=== PATIENT | male | born 1955 | race Caucasian/White ===

== ENCOUNTER 2017-04-13 11:14 | Emergency (ER) | payer BC ==
[~2017-04-13] VITALS: Ht 172.7 cm; Wt 84.8 kg
[~2017-04-13 11:14] MED LIST: ASPI81TA28 PO; BTLAI INJ; GLC/500 PO; PANT40TA PO; TOPI100T20 PO
[2017-04-13 11:16] VITALS: TEMP 36.6; Ht 172.7 cm; Wt 84.8 kg
[2017-04-13] MEDS ORDERED: LPT10 PO (11:33)
--- NOTE | 2017-04-13 12:22 | DIAGNOSTIC IMAGING REPORT ---
RIGHT TIBIA AND FIBULA 2 VIEWS CLINICAL HISTORY: Right calf pain. FINDINGS: AP and lateral views of the right tibia and fibula are obtained. No prior studies are available for comparison at the time of dictation. The skeletal structures appear osteopenic. No fracture is seen. The knee and ankle joints are grossly maintained. An os trigonum is incidentally noted. There is a large dorsal calcaneal enthesophyte. Mild soft tissue swelling is present in the dorsal calf. There is atherosclerotic calcification of the regional arteries. IMPRESSION: 1. Mild dorsal soft tissue edema. No fracture is identified. 2. Osteopenia and large dorsal heel spur. Electronically signed by: Tra Tovar M.D. 04/13/2017 12:20 PM Dictated Date/Time: 04/13/2017 12:19 PM
--- NOTE | 2017-04-13 12:24 | DIAGNOSTIC IMAGING REPORT ---
RIGHT FOOT 3 VIEWS CLINICAL HISTORY: Heel pain. FINDINGS: 3 views of the right foot are obtained. No prior studies are available for comparison at the time of dictation. The skeletal structures are osteopenic. No fracture is seen. Arthritic change is noted at the first metatarsophalangeal joint. There are large dorsal and small plantar calcaneal enthesophytes. Degenerative spurring seen along the dorsal aspect of the tarsal bones. An os trigonum is incidentally noted. Kager's fat pad is normal in appearance. Mild soft tissue swelling is suggested in the distal calf. There is atherosclerotic calcification of the regional arteries. IMPRESSION: 1. No acute bony abnormality is seen in the right foot. 2. Osteopenia, arthritic change, and heel spurs as above. Electronically signed by: Tra Tovar M.D. 04/13/2017 12:23 PM Dictated Date/Time: 04/13/2017 12:21 PM
--- NOTE | 2017-04-13 12:37 | DIAGNOSTIC IMAGING REPORT ---
ULTRASOUND RIGHT LOWER EXTREMITY VENOUS CLINICAL HISTORY: Right calf pain. COMPARISON STUDY: Bilateral lower extremity venous ultrasound dated 10/04/2009. TECHNIQUE: Real-time, grayscale, and color Doppler sonography of the deep veins of the right lower extremity was performed from the inguinal crease to the calf. Compression and augmentation were utilized. FINDINGS: There is no sonographic evidence of deep venous thrombosis identified in the right lower extremity. The common femoral, superficial femoral, and popliteal veins are patent and normally compressible. The greater saphenous vein and the profunda femoris vein at the junction with the common femoral vein are clear. The visualized calf veins are patent. IMPRESSION: There is no sonographic evidence of deep venous thrombosis identified in the right lower extremity. Electronically signed by: Tra Tovar M.D. 04/13/2017 12:35 PM Dictated Date/Time: 04/13/2017 12:35 PM
[2017-04-13 12:58] VITALS: BP 135/89; PULSE 82; O2SAT 96
--- NOTE | 2017-04-13 12:59 | EMERGENCY ROOM VISIT NOTE ---
ED Visit Note First contact with patient: 11:33 62-year-old male with left lower leg pain was fully evaluated by Yony Estevez. Please see his note. I also independently evaluated the patient. The patient appears to have an Achilles strain without rupture.
[2017-04-13] MEDS ORDERED: TRAM-10 PO (13:02)
--- NOTE | 2017-04-13 13:03 | EMERGENCY ROOM VISIT NOTE ---
History First contact with patient: 11:33 Chief Complaint: ANKLE PAIN Stated Complaint: ACHILES TENDON History of Present Illness The patient is a 62 year old male who presents to the Emergency Room with complaints of "Achilles tendon".. The patient states that , he was installing spouting, when he was stepping down off of scaffolding, causing marked dorsiflexion, causing pain at the insertion of the Achilles tendon on the calcaneus. Patient points to this region is location of pain which she notes has been increasing since the event and currently rates his pain as an 8/ 10. There is no numbness or tingling in the distal extremity. Review of Systems A complete 6-point Review of Systems was discussed with the patient, with pertinent positives and negatives listed in the History of Present Illness. All remaining Review of Systems questions can be considered negative unless otherwise specified. Past Medical/Surgical History Medical Problems: (1) Abdominal pain (2) Abdominal wall pain in left flank (3) Diabetes (4) Gastro-Esophageal Reflux Disease Without Esophagitis (5) Kidney stones (6) Lumbar back pain (7) Lumbar degenerative disc disease (8) Lumbar radicular pain (9) TBI (traumatic brain injury) Surgical Problems: (1) Hx of appendectomy (2) S/P lumbar fusion Family History Diabetes mellitus Kidney stones Social History Smoking Status: Never Smoker Alcohol Use: none Marital Status: Housing Status: lives with significant other Occupation Status: disabled Current/Historical Medications Scheduled Aspirin (Aspirin Ec), 81 MG PO QAM Atorvastatin (Atorvastatin Calcium), 10 MG PO DAILY Botulinum Toxin Type A (Botox), 1 DOSE INJ DIRECTED Metformin Hcl (Glucophage), 500 MG PO BID Pantoprazole Sodium (Protonix), 40 MG PO QAM Topiramate (Topamax), 200 MG PO HS Scheduled PRN Tramadol (Ultram), 50 MG PO Q6 PRN for Pain Allergies Coded Allergies: Zolpidem (Verified Adverse Reaction, Unknown, hallucinations, 04/13/17) Physical Exam Vital Signs Date Time Temp Pulse Resp B/P Pulse Ox O2 Delivery O2 Flow Rate FiO2 04/13/17 12:58 82 18 135/89 96 Room Air 04/13/17 11:16 36.6 81 18 137/84 99 Room Air Physical Exam VITAL SIGNS - Vital signs and nursing notes were reviewed. Afebrile, blood pressure 1 3784, non-tachycardic and saturating well on room air 99%. GENERAL -62-year-old male appearing his stated age who is in no acute distress. Communicates well with provider and answers questions appropriately. SKIN - Without rashes. Skin overlying the right ankle is unremarkable. HEAD - NC/AT. EXTREMITIES - No clubbing or peripheral cyanosis. No pretibial edema present. Squeezing of the gastroc muscle elicits plantar flexion. No evidence of complete Achilles tendon tear. There is no muscle bulge in the right calf. There is calf tenderness and marked Achilles tenderness. NEUROLOGIC - Cranial nerves II through XII grossly intact. Sensory intact to light touch throughout. He is neurologically intact in the extremity. PSYCH - Pt is very pleasant and interacts well with examiner. Medical Decision & Procedures ER Provider Diagnostic Interpretation: ULTRASOUND RIGHT LOWER EXTREMITY VENOUS CLINICAL HISTORY: Right calf pain. COMPARISON STUDY: Bilateral lower extremity venous ultrasound dated 10/04/2009. TECHNIQUE: Real-time, grayscale, and color Doppler sonography of the deep veins of the right lower extremity was performed from the inguinal crease to the calf. Compression and augmentation were utilized. FINDINGS: There is no sonographic evidence of deep venous thrombosis identified in the right lower extremity. The common femoral, superficial femoral, and popliteal veins are patent and normally compressible. The greater saphenous vein and the profunda femoris vein at the junction with the common femoral vein are clear. The visualized calf veins are patent. IMPRESSION: There is no sonographic evidence of deep venous thrombosis identified in the right lower extremity. Electronically signed by: Tra Tovar M.D. 04/13/2017 12:35 PM Dictated Date/Time: 04/13/2017 12:35 PM Medical Decision Patient was seen and evaluated as above. After obtaining a thorough history and physical examination radiographs and ultrasound was obtained of the affected area. Patient presents to us today with any known injury to the region. He has injured the Achilles tendon the past. He believes it was a strain in the past. Ultrasound an x-ray was negative for acute process. I suspect the patient is likely strained or sprained the Achilles tendon region or surrounding musculature. I do not suspect any complete tear. I do not suspect any infection. Case was discussed with my attending, who also personally evaluated the patient. This time the patient will be placed in a posterior short-leg Ortho-Glass splint and referred to orthopedics. He will be given tramadol for his pain. He has taken this in the past with good relief. Patient was made nonweightbearing, provided with crutches, educated upon reasons to return the emergency Department, had quit for discharge and was discharged home in In the evaluation and treatment of this patient, the following differential diagnoses were considered: Ankle Fracture, Ankle Sprain, achilles tendon tear, Distal Fibula Fracture, Distal Tibia Fracture, Foot Fracture, Maisonneuve Fracture. Impression Primary Impression: Strain of Achilles tendon Departure Information Dispostion Home / Self-Care Condition GOOD Prescriptions Tramadol (Ultram) 50 Mg Tab 50 MG PO Q6 Y for Pain, #12 TAB Prov: Yony Diaz PA-C 04/13/17 Referrals Angel Soler MD (PCP) Gian Barrera M.D. Patient Instructions [facility] Additional Instructions You have been treated in the Emergency Department for achilles pain Pain. You have been prescribed TRAMADOL to be used for pain control. This is a narcotic medication. You cannot drive or consume alcohol while on this medicine. This medicine should only be used for pain that cannot be controlled with [id number] pain medicines. For pain control, you can use the following [id number]-[id number] medicines (if >12 yo): - Regular strength (325mg/tab) Tylenol (acetaminophen) 2 tabs every 4-6 hours as needed. Do not exceed 12 tablets in a 24 hour period. Avoid taking more than 3 grams (3000 mg) of Tylenol per day. This includes any other sources of acetaminophen you may take on a regular basis. - Regular strength (200 mg/tab) Advil (ibuprofen) 1-2 tabs every 4-6 hours as needed. Do not exceed a dose of 3200 mg per day. If this is a recent injury (<24 hrs), ice can be applied to the area of pain for the first 3 days to help decrease pain and inflammation. Ice massages can be performed by freezing water in a paper cup, peeling back the cup to expose the ice and then massaging over the affected area. You have been provided the number for an Orthopaedic Surgeon. You should call this number as soon as possible to establish a follow-up visit from today's Emergency Department visit. (DR. BARRERA) Keep the ankle/foot brace in place until cleared by Orthopedics. Use the crutches you have been provided to keep ALL weight off of the ankle until weight bearing is tolerable. Return to the Emergency Department if your current symptoms worsen despite treatment course outlined above. Please return to the emergency department with any new/concerning symptoms.
== END 2017-04-13 13:20 | disposition home or self-care (01) ==
LOC: C.EDB 11:15 → C.EDD 13:20
DX: S86.011A Strain of right Achilles tendon, initial encounter (principal); X50.0XXA Overexertion from strenuous movement or load, initial encounter; Y93.89 Activity, other specified; E11.9 Type 2 diabetes mellitus without complications; K21.9 Gastro-esophageal reflux disease without esophagitis; Z87.442 Personal history of urinary calculi; Z98.1 Arthrodesis status; Z83.3 Family history of diabetes mellitus; Z84.1 Family history of disorders of kidney and ureter; Z79.82 Long term (current) use of aspirin; Z79.899 Other long term (current) drug therapy; M79.661 Pain in right lower leg

== ENCOUNTER 2023-06-14 18:08 | Observation (INO) ==
--- NOTE | 2023-06-14 18:48 | XRay Report ---
XR chest 1V not portable HISTORY: 68 years-old Male Chest pain, nonspecific acute chest pain COMPARISON: Chest radiograph 08/20/2019 TECHNIQUE: PA view of the chest FINDINGS: Cardiomediastinal and hilar silhouettes are within normal limits. No pneumothorax, pleural effusion, airspace consolidation or pulmonary edema. IMPRESSION: No acute process. ACT 112: Negative or not required by law. The above report was generated using voice recognition software. It may contain grammatical, syntax o r spelling errors. Electronically signed by: Robby Juarez M.D. 06/14/2023 6:46 PM
[2023-06-14 18:53] LABS: Basophils # (auto) 0.09 K/uL (0-0.2); Basophils % (auto) 0.7 %; Eosinophils # (auto) 0.14 K/uL (0-0.50); Hematocrit (blood only) 49.2 % (42.0-52.0); Hemoglobin 16.4 g/dl (14.0-18.0); Immature Granulocytes # (auto) 0.07 K/uL (0.01-0.20); Immature Granulocytes % (auto) 0.5 %; Lymphocytes # (auto) 2.46 K/uL (1.2-3.4); Lymphocytes % (auto) 18.1 %; Mean Corpuscular Hemoglobin 30.5 pg (25.0-34.0); Mean Corpuscular Hgb Conc 33.3 g/dL (32.0-36.0); Mean Corpuscular Volume 91.4 fL (80.0-100.0); Mean Platelet Volume 10.4 fL (9.4-12.4); Monocytes % (auto) 6.6 %; Neutrophils # (auto) 9.93 K/uL (1.40-6.50); Neutrophils % (auto) 73.1 %; Platelet Count 252 K/uL (130-400); RDW Coefficient of Variation 12.7 % (11.5-14.5); RDW Standard Deviation 42.6 fL (36.4-46.3); Red Blood Count 5.38 M/uL (4.70-6.10); White Blood Count 13.59 K/ul (4.8-10.8)
[2023-06-14 19:08] LABS: Alanine Aminotransferase 10 U/L (7-52); Albumin Globulin Ratio 1.5 (0.9-2); Albumin Level 4.4 gm/dl (3.4-5.0); Alkaline Phosphatase 84 U/L (34-104); Anion Gap 6 (3-11); Aspartate Aminotransferase 15 U/L (13-39); BUN Creatinine Ratio 10.4 (10-20); Bilirubin,Total 0.6 mg/dl (0.2-1.0); Blood Urea Nitrogen 14 mg/dl (6-23); Calcium 9.7 mg/dl (8.6-10.3); Carbon Dioxide 24 mmol/L (21-32); Chloride 106 mmol/L (98-107); Est GFR (African American) 61.2 ml/min; Est GFR (Non-African American) 52.8 ml/min; Glucose 174 mg/dl (70-99(Fasting)); Potassium 4.6 mmol/L (3.5-5.1); Sodium 136 mmol/L (136-145); Total Protein 7.4 gm/dl (6.0-8.3)
[2023-06-14 19:13] LABS: Troponin I High Sensitivity 4.3 pg/ml (0-20)
[2023-06-14 19:18] LABS: Partial Thromboplastin Time 29.3 Seconds (21.0-31.0); Prothrombin Time 10.9 Seconds (9.0-12.0)
[2023-06-14] MEDS ORDERED: HYDROmorphone INJ 1 MG/ML SYRINGE IV STA ×2 (19:23→20:38)
[2023-06-14] MEDS ORDERED: SODIUM CHLORIDE 0.9% 1000ML 1,000 ML IV ONE (19:23)
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
[2023-06-14 19:48] LABS: Creatine Kinase 67 U/L (30-223)
[2023-06-14] MEDS ORDERED: IOVERSOL 350 MG 125mL Prefilled Syringe IV ONE (20:01)
--- NOTE | 2023-06-14 20:40 | CT Scan Report ---
Exam(s): CTA CHEST IV Amt: 118ml EXAM: CT Angiography Chest With Intravenous Contrast CLINICAL HISTORY: Reason for exam: PE. TECHNIQUE: Axial computed tomographic angiography images of the chest with intravenous contrast. CTDI is 37.27 mGy and DLP is 848.71 mGy-cm. Automated exposure control was utilized for the study. A dose lowering technique was utilized adhering to the principles of ALARA. MIP reconstructed images were created and reviewed. COMPARISON: No relevant prior studies available. FINDINGS: Pulmonary arteries: No pulmonary embolism. Aorta: No acute findings.. Normal caliber. No dissection. Lungs: Atelectasis in the lungs. No evidence of pneumonia. No interstitial edema. Pleural space: Unremarkable. Heart: Cardiomegaly and mild coronary artery calcifications. Bones/joints: No acute fracture. Soft tissues: Unremarkable. Lymph nodes: Unremarkable. IMPRESSION: No pulmonary embolism. No acute abnormality identified. Electronically signed by: Ed Disla MD 06/14/23 20:40 PM
[2023-06-14 20:41] LABS: Procalcitonin 0.09 ng/ml (0-0.5)
[2023-06-14 20:47] LABS: Lyme Ab IgG w/WB Rflx Negative (Negative); Lyme Ab IgM w/WB Rflx Negative (Negative)
[2023-06-14 21:08] LABS: Influenza A virus by PCR Negative (Neg); Influenza B virus by PCR Negative (Neg); RSV by PCR Negative (Neg); SARS CoV2 RNA(COVID-19) Ceph NEGATIVE (Negative)
[2023-06-14] MEDS ORDERED: NITROGLYCERIN SL 0.4 MG/TAB TAB SL STA (21:12)
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
[2023-06-14 23:02] LABS: C Reactive Protein 3.21 mg/dl (0-0.5)
[2023-06-14 23:10] LABS: Troponin I High Sensitivity 5.9 pg/ml (0-20)
[2023-06-15] MEDS: NITROGLYCERIN SL 0.4 MG/TAB TAB SL PRN ×2 (00:01→03:51)
[2023-06-15] MEDS ORDERED: GLUCAGON FOR INJ 1 MG VIAL SQ PRN (00:04)
[2023-06-15] MEDS ORDERED: GLUCOSE 10 TAB/TUBE PO PRN (00:04)
[2023-06-15] MEDS ORDERED: CARBOHYDRATES FOR HYPOGLYCEMIA PO PRN (00:04)
[2023-06-15] MEDS ORDERED: DEXTROSE 50% 50 ML SYRINGE IV PRN (00:04)
[2023-06-15] MEDS ORDERED: GLUCOSE 40% GEL 15 GM TUBE PO PRN (00:04)
[2023-06-15] MEDS: INSULIN ASPART PER UNIT CHARGE SC SCH ×5 (00:27→21:52)
[2023-06-15] MEDS: MoRPHine SULFATE 2 MG/ML CARP IV PRN ×5 (02:03→21:50)
[2023-06-15] MEDS: traMADol HCL 50 MG TABLET PO PRN ×2 (04:04→10:24)
[2023-06-15] MEDS ORDERED: MoRPHine SULFATE 2 MG/ML CARP IV STA (04:26)
[2023-06-15 06:26] LABS: Albumin Globulin Ratio 1.3 (0.9-2); Albumin Level 3.8 gm/dl (3.4-5.0); BUN Creatinine Ratio 10.3 (10-20); Bilirubin,Total 1.1 mg/dl (0.2-1.0); C Reactive Protein 7.59 mg/dl (0-0.5); Calcium 9.3 mg/dl (8.6-10.3); Creatinine Clr Calc Pharmacy 52.8 ml/min; Est GFR (African American) 66.5 ml/min; Est GFR (Non-African American) 57.4 ml/min; Globulin 2.9 gm/dl (2.5-4.0); Potassium 4.6 mmol/L (3.5-5.1); Total Protein 6.7 gm/dl (6.0-8.3)
--- NOTE | 2023-06-15 08:50 | XRay Report ---
SINGLE VIEW CHEST CLINICAL HISTORY: Dyspnea. FINDINGS: An AP, portable, upright chest radiograph is compared to chest x-ray and chest CT dated 05/19. The heart is enlarged. There is pulmonary vascular congestion. Scarring/atelectasis is noted at the lung bases. No airspace consolidation or large pleural effusion is identified. No pneumothorax is seen. The skeletal structures are osteopenic. The bony thorax is grossly intact. IMPRESSION: Cardiomegaly with pulmonary vascular congestion. This is new from yesterday. ACT 112: Negative or not required by law. Electronically signed by: Tra Tovar M.D. 06/15/2023 8:48 AM
[2023-06-15] MEDS: FAMOTIDINE 40 MG TABLET PO SCH (08:55)
[2023-06-15] MEDS: SUCRALFATE 1 GM/10 ML UDC PO SCH ×4 (08:55→21:37)
[2023-06-15] MEDS: ENOXAPARIN INJ 40 MG/0.4 ML SYR SQ SCH (08:56)
[2023-06-15 08:59] LABS: Estimated Average Glucose 114 mg/dl; Hemoglobin A1C 5.6 % (4.5-5.6)
[2023-06-15] MEDS ORDERED: PANTOprazole 40 MG TAB PO SCH (09:00)
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
[2023-06-15 10:31] LABS: Base Excess VBG -5.9 mEq/L; HCO3 VBG 20 mmol/L; Oxygen Saturation VBG < 60.0 %; PCO2 VBG 38 mmHg (38-50); PO2 VBG 28 mmHg; pH VBG 7.32 (7.36-7.41)
--- NOTE | 2023-06-15 10:34 | Electrocardiogram Report ---
Test Reason : Blood Pressure : / mmHG Vent. Rate : 088 BPM Atrial Rate : 088 BPM P-R Int : 158 ms QRS Dur : 092 ms QT Int : 310 ms P-R-T Axes : 010 -36 091 degrees QTc Int : 375 ms Normal sinus rhythm Left axis deviation Lateral T wave inversions Abnormal ECG When compared with ECG of 20-FEB-2016 08:57, No significant change was found Confirmed by Karan Solorio ([id number]) on 06/15/2023 10:33:31 AM Referred By: REFERRED SELF Confirmed By:Karan Solorio
[2023-06-15 10:42] LABS: Basophils # (auto) 0.07 K/uL (0-0.2); Basophils % (auto) 0.4 %; Hematocrit (blood only) 51.8 % (42.0-52.0); Hemoglobin 16.7 g/dl (14.0-18.0); Immature Granulocytes # (auto) 0.07 K/uL (0.01-0.20); Immature Granulocytes % (auto) 0.4 %; Lymphocytes # (auto) 1.21 K/uL (1.2-3.4); Lymphocytes % (auto) 6.6 %; Mean Corpuscular Hemoglobin 30.2 pg (25.0-34.0); Mean Corpuscular Hgb Conc 32.2 g/dL (32.0-36.0); Mean Corpuscular Volume 93.7 fL (80.0-100.0); Mean Platelet Volume 10.4 fL (9.4-12.4); Monocytes # (auto) 1.34 K/uL (0.11-0.59); Monocytes % (auto) 7.3 %; Neutrophils # (auto) 15.65 K/uL (1.40-6.50); Neutrophils % (auto) 85.3 %; Platelet Count 218 K/uL (130-400); RDW Coefficient of Variation 12.3 % (11.5-14.5); RDW Standard Deviation 43.1 fL (36.4-46.3); Red Blood Count 5.53 M/uL (4.70-6.10); White Blood Count 18.34 K/ul (4.8-10.8)
[2023-06-15 10:54] LABS: C Reactive Protein 14.46 mg/dl (0-0.5)
[2023-06-15 11:00] LABS: Troponin I High Sensitivity 5.3 pg/ml (0-20)
--- NOTE | 2023-06-15 11:02 | Communication Note ---
Date of Service: June 15, 2023 Came by to see patient. Off the floor getting testing done. Will see later today or in am.
[2023-06-15] MEDS ORDERED: GADOBUTROL 65ML VIAL IV ONE (11:04)
[2023-06-15] MEDS ORDERED: amLODIPine BESYLATE 5 MG TAB PO ONE (11:06)
--- NOTE | 2023-06-15 15:01 | Magnetic Resonance Report ---
MRI OF THE LUMBAR SPINE COMBO CLINICAL HISTORY: Left leg weakness. Fever. COMPARISON STUDY: MRI of the lumbar spine dated 10/28/2019. Abdominal CT dated 06/02/2018. TECHNIQUE: MRI of the lumbar spine is performed utilizing various T1 and T2-weighted sequences in the axial and sagittal planes. Contrast-enhanced sequences are acquired following the IV administration of 7.8 cc of Gadavist. FINDINGS: Lumbar spine: Vertebral body height and alignment are maintained throughout the lumbar spine. Marrow signal intensity is heterogeneous. Anterior and lateral marginal osteophytes are seen throughout. The re is postsurgical change from laminectomy at L3-S1. There has been posterior fusion from L4-S1. The right-sided interpedicular screws at these levels have been removed. The transverse processes are jermaine ssly intact. Tiny hemangiomas are seen in the bodies of L2 and L3. No destructive bony lesion is seen . Chronic degenerative endplate change is noted at several levels. There is mild endplate edema at L3 -L4. Intervertebral discs: There has been discectomy at L5-S1. Disc desiccation and mild to moderate loss of height is seen at the remaining lumbar levels. Spinal cord: The visualized spinal cord is normal in morphology and signal intensity. The conus medul dread terminates at the L1-L2 interspace. The nerve roots of the cauda equina are normal in morpholog y. No abnormal postcontrast enhancement is identified. L1-L2: There is minimal posterior disc bulge. This abuts the transiting nerve roots. No acquired comp romise of the central canal is seen. Predominantly facet arthropathy contributes to minimal neural fo raminal narrowing bilaterally. L2-L3: There is broad-based posterior disc bulge with annular fissure. This abuts the transiting nerv e roots. There is no significant acquired compromise of the central canal. There is a large left late ral disc bulge seen on axial image #9. This contributes to subarticular stenosis and may impinge on t he exiting left L2 nerve root. In conjunction with facet arthropathy, there is severe left neural for aminal stenosis. Mild neural foraminal narrowing seen on the right. L3-L4: There is broad-based posterior disc bulge with annular fissure. This abuts the transiting nerv e roots. There is no significant acquired compromise of the central canal. Lateral disc bulge is seen bilaterally and contributes to bilateral subarticular stenosis. This may impinge in the exiting bila teral L3 nerve roots. In conjunction with facet arthropathy there is severe right greater than left n eural foraminal stenosis. L4-L5: The central canal and neural foramina appear patent. L5-S1: The central canal and neural foramina appear patent. Sacrum: The visualized sacrum is normal in morphology and signal intensity. Soft tissues: Postsurgical change is seen posterior to the thecal sac at the surgical levels. The par aspinous soft tissues are otherwise normal in appearance. The left kidney is not identified and presu med surgically absent. No retroperitoneal lymphadenopathy is seen. IMPRESSION: 1. No acute bony abnormality is seen involving the lumbar spine. 2. Postsurgical and spondylotic change throughout the lumbar spine as above. See discussion for detai led level by level analysis. 3. Additional findings as above. Electronically signed by: Tra Tovar M.D. 06/15/2023 2:59 PM
--- NOTE | 2023-06-15 16:36 | Gastrointestinal Consultation ---
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 laminectomy at L3-S1. There has been posterior fusion from L4-S1. The right- sided interpedicular screws at these levels have been removed. The transverse processes are grossly intact. Tiny hemangiomas are seen in the bodies of L2 and L3. No destructive bony lesion is seen. Chronic degenerative endplate change is noted at several levels. There is mild endplate edema at L3-L4. Intervertebral discs: There has been discectomy at L5-S1. Disc desiccation and mild to moderate loss of height is seen at the remaining lumbar levels. Spinal cord: The visualized spinal cord is normal in morphology and signal intensity. The conus medullaris terminates at the L1-L2 interspace. The nerve roots of the cauda equina are normal in morphology. No abnormal postcontrast enhancement is identified. L1-L2: There is minimal posterior disc bulge. This abuts the transiting nerve roots. No acquired compromise of the central canal is seen. Predominantly facet arthropathy contributes to minimal neural foraminal narrowing bilaterally. L2-L3: There is broad-based posterior disc bulge with annular fissure. This abuts the transiting nerve roots. There is no significant acquired compromise of the central canal. There is a large left lateral disc bulge seen on axial image #9. This contributes to subarticular stenosis and may impinge on the exiting left L2 nerve root. In conjunction with facet arthropathy, there is severe left neural foraminal stenosis. Mild neural foraminal narrowing seen on the right. L3-L4: There is broad-based posterior disc bulge with annular fissure. This abuts the transiting nerve roots. There is no significant acquired compromise of the central canal. Lateral disc bulge is seen bilaterally and contributes to bilateral subarticular stenosis. This may impinge in the exiting bilateral L3 nerve roots. In conjunction with facet arthropathy there is severe right greater than left neural foraminal stenosis. L4-L5: The central canal and neural foramina appear patent. L5-S1: The central canal and neural foramina appear patent. Sacrum: The visualized sacrum is normal in morphology and signal intensity. Soft tissues: Postsurgical change is seen posterior to the thecal sac at the surgical levels. The paraspinous soft tissues are otherwise normal in appearance. The left kidney is not identified and presumed surgically absent. No retroperitoneal lymphadenopathy is seen. IMPRESSION: 1. No acute bony abnormality is seen involving the lumbar spine. 2. Postsurgical and spondylotic change throughout the lumbar spine as above. See discussion for detailed level by level analysis. 3. Additional findings as above. Electronically signed by: Tra Tovar M.D. 06/15/2023 2:59 PM Chest X-Ray 06/15/23 08:15 SINGLE VIEW CHEST CLINICAL HISTORY: Dyspnea. FINDINGS: An AP, portable, upright chest radiograph is compared to chest x-ray and chest CT dated 06/14/2023. The heart is enlarged. There is pulmonary vascular congestion. Scarring/atelectasis is noted at the lung bases. No airspace consolidation or large pleural effusion is identified. No pneumothorax is seen. The skeletal structures are osteopenic. The bony thorax is grossly intact. IMPRESSION: Cardiomegaly with pulmonary vascular congestion. This is new from yesterday. ACT 112: Negative or not required by law. Electronically signed by: Tra Tovar M.D. 06/15/2023 8:48 AM
[2023-06-15 16:40] LABS: Adenovirus PCR Not Detected (NotDetected); Bordetella parapertussis PCR Not Detected (NotDetected); Bordetella pertussis PCR Not Detected (NotDetected); Chlamydia pneumoniae PCR Not Detected (NotDetected); Coronavirus 229E PCR Not Detected (NotDetected); Coronavirus CoV-2 (COVID19)PCR Not Detected (NotDetected); Coronavirus HKU1 PCR Not Detected (NotDetected); Coronavirus NL63 PCR Not Detected (NotDetected); Coronavirus OC43PCR Not Detected (NotDetected); Human Metapneumovirus PCR Not Detected (NotDetected); Influenza A PCR Not Detected (NotDetected); Influenza B PCR Not Detected (NotDetected); Mycoplasma pneumoniae PCR Not Detected (NotDetected); Parainfluenza Virus 1 PCR Not Detected (NotDetected); Parainfluenza Virus 2 PCR Not Detected (NotDetected); Parainfluenza Virus 3 PCR Not Detected (NotDetected); Parainfluenza Virus 4 PCR Not Detected (NotDetected); Respiratory Syncytial VirusPCR Not Detected (NotDetected); Rhinovirus/Enterovirus PCR Not Detected (NotDetected)
[2023-06-15 16:42] LABS: Appearance Urine Clear (Clear); Bacteria Urine Automated Negative (Negative); Bilirubin Urine Negative (Negative); Blood Urine Negative (Negative); Color Urine Orange; Glucose Urine UA Trace (Negative); Ketones Urine Trace (Negative); Leukocyte Esterase Urine Negative (Negative); Nitrite Urine Negative (Negative); Protein Urine Trace (Negative); RBC Urine Automated 0-4 /hpf (0-4); Specific Gravity Urine 1.036 (1.000-1.030); Urobilinogen Urine Negative (Negative)
--- NOTE | 2023-06-15 18:50 | Ultrasound Report ---
ULTRASOUND RIGHT UPPER QUADRANT ABDOMEN CLINICAL HISTORY: Elevated hepatic transaminases. Fever. COMPARISON STUDY: Abdominal CT dated 06/02/2018. Abdominal ultrasound dated 02/19/2019. TECHNIQUE: Real-time, grayscale, and color flow sonography of the right upper quadrant of the abdomen was performed. Images are reviewed in the transverse and longitudinal planes. FINDINGS: Liver: The liver is normal in size and echotexture. There is no intrahepatic biliary ductal dilatatio n. The main portal vein is patent. Gallbladder: The gallbladder is mildly distended but otherwise normal in appearance. No shadowing gal lstones are identified. There is no gallbladder wall thickening or pericholecystic fluid. A sonograph ic Jimenez's sign is reportedly absent. The common bile duct measures up to 0.2 cm in diameter. Pancreas: Visualized portions of the pancreatic head and body are normal in appearance. The splenic v ein is patent. Right kidney: Survey images of the right kidney demonstrate normal size and echotexture. There is no hydronephrosis. Ascites: None. IMPRESSION: No acute sonographic abnormality is identified in the right upper quadrant. No gallstones are seen. ACT 112: Negative or not required by law. Electronically signed by: Tra Tovar M.D. 06/15/2023 6:49 PM
[2023-06-15] MEDS ORDERED: TOPIRAMATE 100 MG TAB PO SCH (21:00)
[2023-06-15] MEDS: PANTOprazole 40 MG TAB PO SCH (21:37)
[2023-06-16 07:00] LABS: Hematocrit (blood only) 45.1 % (42.0-52.0); Hemoglobin 14.7 g/dl (14.0-18.0); Mean Corpuscular Hemoglobin 30.2 pg (25.0-34.0); Mean Corpuscular Hgb Conc 32.6 g/dL (32.0-36.0); Mean Corpuscular Volume 92.6 fL (80.0-100.0); Mean Platelet Volume 10.4 fL (9.4-12.4); Platelet Count 208 K/uL (130-400); RDW Coefficient of Variation 12.5 % (11.5-14.5); RDW Standard Deviation 42.7 fL (36.4-46.3); Red Blood Count 4.87 M/uL (4.70-6.10); White Blood Count 13.83 K/ul (4.8-10.8)
[2023-06-16 07:19] LABS: Albumin Level 3.7 gm/dl (3.4-5.0); BUN Creatinine Ratio 13.8 (10-20); Bilirubin Direct 0.2 mg/dl (0-0.2); Bilirubin,Total 0.8 mg/dl (0.2-1.0); C Reactive Protein 27.84 mg/dl (0-0.5); Calcium 9.2 mg/dl (8.6-10.3); Creatinine Clr Calc Pharmacy 55.3 ml/min; Est GFR (African American) 64.1 ml/min; Est GFR (Non-African American) 55.3 ml/min; Potassium 4.1 mmol/L (3.5-5.1); Total Protein 6.7 gm/dl (6.0-8.3)
[2023-06-16] MEDS: ENOXAPARIN INJ 40 MG/0.4 ML SYR SQ SCH (07:25)
[2023-06-16] MEDS: FAMOTIDINE 40 MG TABLET PO SCH (07:26)
[2023-06-16] MEDS: SUCRALFATE 1 GM/10 ML UDC PO SCH ×3 (07:27→16:29)
[2023-06-16] MEDS: PANTOprazole 40 MG TAB PO SCH (07:27)
[2023-06-16] MEDS: INSULIN ASPART PER UNIT CHARGE SC SCH ×2 (08:23→12:14)
[2023-06-16 08:46] LABS: Basophils # (auto) 0.09 K/uL (0-0.2); Basophils % (auto) 0.6 %; Eosinophils # (auto) 0.03 K/uL (0-0.50); Eosinophils % (auto) 0.2 %; Immature Granulocytes # (auto) 0.14 K/uL (0.01-0.20); Lymphocytes # (auto) 2.12 K/uL (1.2-3.4); Monocytes # (auto) 1.22 K/uL (0.11-0.59); Monocytes % (auto) 8.6 %; Neutrophils # (auto) 10.51 K/uL (1.40-6.50); Neutrophils % (auto) 74.6 %
--- NOTE | 2023-06-16 10:14 | Gastroenterology Progress Note ---
Date of Service June 16, 2023 Assessment & Plan (1) Substernal chest pain: Plan: For some reason his pain is gone. I offered EGD for tomorrow but he doesn't want to do it since his pain is gone. Okay to go home from my standpoint which is what he wants. Admission and Anticipated Discharge Date Admission Date: June 15, 2023 Subjective Chest pain is miraculously gone. He feels fine now. Ultrasound negative Physical Exam Physical Exam: He looks well Constitutional: WD/WN, vitals as above Results & Data Vital Signs (Past 12 Hours) Vital Signs Temp Pulse Pulse Resp BP Pulse Ox O2 Del Method 06/16/23 07:33 36.8 C 84 18 103/67 95 Room Air 06/16/23 07:09 76 06/16/23 05:06 37.3 C 80 20 116/72 96 Room Air 06/16/23 00:09 36.9 C 79 20 121/65 96 Room Air 06/15/23 23:28 Room Air
--- NOTE | 2023-06-16 10:26 | Electrocardiogram Report ---
Test Reason : Blood Pressure : / mmHG Vent. Rate : 079 BPM Atrial Rate : 079 BPM P-R Int : 162 ms QRS Dur : 088 ms QT Int : 314 ms P-R-T Axes : 009 -32 093 degrees QTc Int : 360 ms Normal sinus rhythm Left axis deviation T wave inversion consider lateral ischemia Abnormal ECG When compared with ECG of 14-JUN-2023 18:18, No significant change was found Confirmed by Karan Solorio ([id number]) on 06/16/2023 10:26:06 AM Referred By: REFERRED SELF Confirmed By:Karan Solorio
--- NOTE | 2023-06-16 10:28 | Electrocardiogram Report ---
Test Reason : Blood Pressure : / mmHG Vent. Rate : 099 BPM Atrial Rate : 099 BPM P-R Int : 156 ms QRS Dur : 084 ms QT Int : 296 ms P-R-T Axes : 010 -28 065 degrees QTc Int : 379 ms Normal sinus rhythm Nonspecific T wave abnormality When compared with ECG of 14-JUN-2023 19:18, (unconfirmed) No significant change was found Confirmed by Karan Solorio ([id number]) on 06/16/2023 10:28:20 AM Referred By: REFERRED SELF Confirmed By:Karan Solorio
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
[2023-06-16 18:14] LABS: Lyme Ab IgG w/WB Rflx Negative (Negative)
[2023-06-16 18:15] LABS: Lyme Ab IgM w/WB Rflx Negative (Negative)
[2023-06-19 20:51] LABS: Babesia microti DNA Not Detected (Not Detected)
[2023-06-21 00:51] LABS: Q Fever IgG, Phase I NEGATIVE; Q Fever Phase I IgM Antibody NEGATIVE; Q Fever Phase II IgG Antibody NEGATIVE; Q Fever Phase II IgM Antibody NEGATIVE; R. typhi IgG Ab NOT DETECTED; R. typhi IgM Ab NOT DETECTED; RMSF IgG Ab NOT DETECTED; RMSF IgM Ab NOT DETECTED
[2023-06-21 08:13] LABS: Ehrlichia chaff DNA Bld Negative (Negative)
== END 2023-06-16 18:13 | disposition home or self-care (01) | DRG 313 ==
LOC: 2N 18:08 → ED 18:08 → SUATTDRO 22:19 → 2N 23:29
DX: G43.909 Migraine, unspecified, not intractable, without status migrainosus; R07.9 Chest pain, unspecified; Z79.82 Long term (current) use of aspirin; E11.9 Type 2 diabetes mellitus without complications; E66.9 Obesity, unspecified; Z79.899 Other long term (current) drug therapy; G40.909 Epilepsy, unspecified, not intractable, without status epilepticus; Z88.8 Allergy status to other drugs, medicaments and biological substances; Z68.30 Body mass index [BMI] 30.0-30.9, adult; K21.9 Gastro-esophageal reflux disease without esophagitis; Z87.820 Personal history of traumatic brain injury; M96.1 Postlaminectomy syndrome, not elsewhere classified; D72.829 Elevated white blood cell count, unspecified; Z79.84 Long term (current) use of oral hypoglycemic drugs; E78.5 Hyperlipidemia, unspecified

== ENCOUNTER 2023-06-25 14:05 | Inpatient (IN) ==
[2023-06-25] MEDS ORDERED: ACETAMINOPHEN 1,000 MG/100 ML VIAL IV STA (14:55)
[2023-06-25] MEDS ORDERED: SODIUM CHLORIDE 0.9% 500 ML IV STA (14:55)
[2023-06-25 15:24] LABS: Basophils # (auto) 0.05 K/uL (0-0.2); Basophils % (auto) 0.5 %; Eosinophils # (auto) 0.03 K/uL (0-0.50); Eosinophils % (auto) 0.3 %; Hematocrit (blood only) 43.1 % (42.0-52.0); Immature Granulocytes # (auto) 0.04 K/uL (0.01-0.20); Immature Granulocytes % (auto) 0.4 %; Lymphocytes # (auto) 1.44 K/uL (1.2-3.4); Mean Corpuscular Hemoglobin 29.7 pg (25.0-34.0); Mean Corpuscular Hgb Conc 32.5 g/dL (32.0-36.0); Mean Corpuscular Volume 91.3 fL (80.0-100.0); Mean Platelet Volume 10.2 fL (9.4-12.4); Monocytes # (auto) 0.98 K/uL (0.11-0.59); Monocytes % (auto) 8.9 %; Neutrophils # (auto) 8.51 K/uL (1.40-6.50); Neutrophils % (auto) 76.9 %; Platelet Count 259 K/uL (130-400); RDW Coefficient of Variation 12.3 % (11.5-14.5); RDW Standard Deviation 41.2 fL (36.4-46.3); Red Blood Count 4.72 M/uL (4.70-6.10); White Blood Count 11.05 K/ul (4.8-10.8)
[2023-06-25 15:31] LABS: Alanine Aminotransferase 21 U/L (7-52); Albumin Globulin Ratio 1.3 (0.9-2); Albumin Level 3.9 gm/dl (3.4-5.0); Alkaline Phosphatase 60 U/L (34-104); Anion Gap 7 (3-11); Aspartate Aminotransferase 14 U/L (13-39); Blood Urea Nitrogen 14 mg/dl (6-23); C Reactive Protein 8.18 mg/dl (0-0.5); Calcium 8.9 mg/dl (8.6-10.3); Carbon Dioxide 22 mmol/L (21-32); Chloride 105 mmol/L (98-107); Creatinine Clr Calc Pharmacy 58.9 ml/min; Est GFR (African American) 65.9 ml/min; Est GFR (Non-African American) 56.9 ml/min; Glucose 199 mg/dl (70-99(Fasting)); Sodium 134 mmol/L (136-145); Total Protein 6.9 gm/dl (6.0-8.3)
[2023-06-25 15:36] LABS: Troponin I High Sensitivity < 2.3 pg/ml (0-20)
--- NOTE | 2023-06-25 16:11 | XRay Report ---
XR chest 1V portable HISTORY: Fever COMPARISON: Chest 06/15/2023. FINDINGS: No pneumothorax. No pleural effusions. There is mild elevation of the right hemidiaphragm. The cardiac silhouette is mildly enlarged. No focal lung consolidations to suggest a pneumonia. No ev idence for pulmonary edema. IMPRESSION: Mild cardiomegaly. Otherwise, no acute process within the chest. ACT 112: Negative or not required by law. Electronically signed by: Daniele Pisano M.D. 06/25/2023 4:09 PM
[2023-06-25] MEDS ORDERED: OPTIRAY 350 500ml IV ONE (16:30)
--- NOTE | 2023-06-25 16:47 | CT Scan Report ---
ABDOMEN AND PELVIS CT WITH IV CONTRAST CT DOSE: HISTORY: Fever. Abdominal pain. TECHNIQUE: Multiaxial CT images of the abdomen and pelvis were performed following the use of intrave nous contrast. A dose lowering technique was utilized adhering to the principles of ALARA. COMPARISON STUDY: Abdomen and pelvis CT 06/02/2018. FINDINGS: The lung bases will be reported on the same day chest CTA. There is a moderate pericardial effusion with enhancement of the pericardium. This is consistent with a nonspecific pericarditis. The re are trace bilateral pleural effusions. Stable benign 5 mm nodule within the right lower lobe. No p neumoperitoneum. No pneumatosis. Postoperative changes again noted within the lower lumbar spine. No acute fractures identified. No hepatic or splenic masses. The spleen is mildly enlarged measuring 13 cm in length. The main portal vein is patent. No gallbladder wall thickening. Periportal edema with t race pericholecystic fluid. Areas of focal fat within the liver adjacent to the ruth ann hepatis and fal ciform ligament. The adrenal glands and pancreas are unremarkable. A few subcentimeter hypodense lesi ons within the right kidney are technically too small to characterize but favor cysts. No right-sided hydronephrosis. The left kidney is absent. Calcified plaque within the normal caliber abdominal aort a. There is a left circumaortic renal vein. No retroperitoneal or pelvic lymphadenopathy. No pelvic f ree fluid. The bladder is unremarkable. The prostate gland is mildly enlarged. No bowel wall thickeni ng or obstruction. Colonic diverticulosis. No evidence for acute diverticulitis. IMPRESSION: 1. Moderate pericardial effusion with enhancement of the pericardium consistent with a nonspecific pe ricarditis. 2. Periportal edema is noted within the liver. This could be due to cardiac congestion. An underlying hepatic pathology is not excluded. 3. Mild splenomegaly. 4. The left kidney is absent. 5. No bowel wall thickening or obstruction. 6. Colonic diverticulosis. No evidence for acute diverticulitis. ACT 112: Negative or not required by law. Electronically signed by: Daniele Pisano M.D. 06/25/2023 4:44 PM
--- NOTE | 2023-06-25 17:08 | CT Scan Report ---
CT angio chest PE protocol CLINICAL HISTORY: fever, chest pain, sob TECHNIQUE: Multidetector row helical CT of the chest was performed with angiographic protocol. Durand l and sagittal reformations were obtained. Coronal and sagittal MIPS were obtained from the axial iza a set and were submitted for review. Automated dose lowering techniques and/or adjustment according to patient size were utilized for this exam. CT DOSE: 2117.80 mGy.cm Comparison: Comparison is made to CTA chest 06/14/2023 FINDINGS: Lungs and pleura: Trace bilateral pleural effusions seen with underlying atelectasis. There is a 5 mm fissural nodule. Heart and pericardium: Interval development of a pericardial effusion. There is questionable flatteni ng of the intraventricular septum but no kesha reversal. Reflux of contrast is noted into the inferio r vena cava. Vessels: No evidence of pulmonary embolism. Mediastinum and jose: Subcentimeter lymph nodes are seen. Chest wall and lower neck: Unremarkable. Abdomen: Unremarkable. Bones: Degenerative changes in the thoracic spine. IMPRESSION: 1. Interval development of a pericardial effusion with questionable flattening of the interventricul ar septum, concerning for pericardial tamponade. 2. No pulmonary embolus. 3. Trace bilateral pleural effusions. ACT 112: Negative or not required by law. Electronically signed by: Yung Mata M.D. 06/25/2023 5:06 PM
--- NOTE | 2023-06-25 17:34 | Electrocardiogram Report ---
Test Reason : Blood Pressure : / mmHG Vent. Rate : 107 BPM Atrial Rate : 107 BPM P-R Int : 150 ms QRS Dur : 076 ms QT Int : 302 ms P-R-T Axes : 015 -35 057 degrees QTc Int : 403 ms Sinus tachycardia Left axis deviation Nonspecific ST abnormality Abnormal ECG When compared with ECG of 14-JUN-2023 23:49, ST no longer elevated in Anterior leads Confirmed by Angel Guzman ([id number]) on 06/25/2023 5:34:55 PM Referred By: REFERRED SELF Confirmed By:Ho Guzman
[2023-06-25] MEDS ORDERED: COLCHICINE 0.6 MG TAB PO ONE (17:55)
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
[2023-06-25 18:37] LABS: Appearance Urine Clear (Clear); Bacteria Urine Automated Negative (Negative); Bilirubin Urine Negative (Negative); Blood Urine Negative (Negative); Color Urine Yellow; Glucose Urine UA Negative (Negative); Ketones Urine Trace (Negative); Leukocyte Esterase Urine Negative (Negative); Nitrite Urine Negative (Negative); Protein Urine Trace (Negative); RBC Urine Automated 0-4 /hpf (0-4); Specific Gravity Urine > 1.045 (1.000-1.030); Urobilinogen Urine Negative (Negative); pH Urine 5.5 (4.5-7.5)
[2023-06-25 18:41] LABS: Lyme Ab IgG w/WB Rflx Negative (Negative); Lyme Ab IgM w/WB Rflx Negative (Negative)
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
[2023-06-25] MEDS ORDERED: diphenhydrAMINE Capsule 25 MG CAP PO PRN (20:17)
[2023-06-25] MEDS ORDERED: ACETAMINOPHEN 500 MG TAB PO PRN (20:20)
[2023-06-25] MEDS: TOPIRAMATE 100 MG TAB PO SCH (21:14)
[2023-06-26] MEDS: ACETAMINOPHEN 325 MG TAB PO PRN ×2 (02:14→09:07)
[2023-06-26] MEDS ORDERED: MoRPHine SULFATE 2 MG/ML CARP IV STA ×2 (02:39→22:28)
[2023-06-26] MEDS ORDERED: KETOROLAC 30 MG/ML VIAL IV ONE (02:58)
[2023-06-26 03:19] LABS: Basophils # (auto) 0.07 K/uL (0-0.2); Basophils % (auto) 0.4 %; Hematocrit (blood only) 43.2 % (42.0-52.0); Hemoglobin 14.1 g/dl (14.0-18.0); Immature Granulocytes # (auto) 0.07 K/uL (0.01-0.20); Immature Granulocytes % (auto) 0.4 %; Lymphocytes # (auto) 1.49 K/uL (1.2-3.4); Lymphocytes % (auto) 9.4 %; Mean Corpuscular Hemoglobin 29.4 pg (25.0-34.0); Mean Corpuscular Hgb Conc 32.6 g/dL (32.0-36.0); Mean Corpuscular Volume 90.2 fL (80.0-100.0); Mean Platelet Volume 9.8 fL (9.4-12.4); Monocytes # (auto) 1.52 K/uL (0.11-0.59); Monocytes % (auto) 9.6 %; Neutrophils # (auto) 12.71 K/uL (1.40-6.50); Neutrophils % (auto) 80.2 %; Platelet Count 259 K/uL (130-400); RDW Coefficient of Variation 12.5 % (11.5-14.5); RDW Standard Deviation 41.9 fL (36.4-46.3); Red Blood Count 4.79 M/uL (4.70-6.10); White Blood Count 15.86 K/ul (4.8-10.8)
[2023-06-26 03:37] LABS: BUN Creatinine Ratio 12.3 (10-20); Calcium 8.6 mg/dl (8.6-10.3); Creatinine Clr Calc Pharmacy 64.5 ml/min; Est GFR (African American) 75.1 ml/min; Est GFR (Non-African American) 64.8 ml/min; Potassium 4.2 mmol/L (3.5-5.1)
[2023-06-26] MEDS: PANTOprazole 40 MG TAB PO SCH (06:41)
--- NOTE | 2023-06-26 06:43 | Communication Note ---
Date of Service: June 26, 2023 Overnight patient began complaining of worsening chest pain rating it an 8/10 from a previous 6/10 on admission. BP was stable in the 120-130s systolic and he was tachycardic in the low 100s. I obtained a CXR which upon my read had stable cardiomegaly however shifted to the left with some tracheal deviation. Uncertain if this was due to patient positioning at time of image. EKG looked similar to admission with no signs of obvious tamponade. Repeat trop was wnl. I gave a dose of 2mg morphine IV and toradol. Pt pain level went down to a 3/10 and he ap peared comfortable. May require urgent pericardiocentesis given progression of symptoms overnight. Resident Activity Tracking Resident Involvement: Resident Care Provided Care Provided: Adult Hospital Medicine
[2023-06-26] MEDS ORDERED: DEXTROSE 50% 50 ML SYRINGE IV PRN (06:49)
[2023-06-26] MEDS ORDERED: CARBOHYDRATES FOR HYPOGLYCEMIA PO PRN (06:49)
[2023-06-26] MEDS ORDERED: GLUCOSE 10 TAB/TUBE PO PRN (06:49)
[2023-06-26] MEDS ORDERED: GLUCAGON FOR INJ 1 MG VIAL SQ PRN (06:49)
[2023-06-26] MEDS ORDERED: GLUCOSE 40% GEL 15 GM TUBE PO PRN (06:49)
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
[2023-06-26] MEDS: INSULIN ASPART PER UNIT CHARGE SC SCH ×4 (07:36→20:46)
--- NOTE | 2023-06-26 07:42 | XRay Report ---
XR chest 1V portable HISTORY: Atypical chest pain. Shortness of breath. COMPARISON: Chest 06/25/2023. FINDINGS: No pneumothorax. Trace bilateral pleural effusions are again noted. There is mild central p ulmonary vascular congestion without overt edema. Left basilar linear densities favor subsegmental at electasis. The cardiac silhouette remains enlarged. This likely corresponds the patient's known peric ardial effusion. No new focal lung consolidations identified. No acute fractures. IMPRESSION: 1. Stable enlargement of the cardiac silhouette likely corresponding to the patient's known pericardi al effusion. 2. Mild pulmonary vascular congestion without overt edema. 3. Trace bilateral pleural effusions, unchanged. ACT 112: Negative or not required by law. Electronically signed by: Daniele Pisano M.D. 06/26/2023 7:41 AM
[2023-06-26] MEDS: FAMOTIDINE 40 MG TABLET PO SCH (09:06)
[2023-06-26] MEDS: COLCHICINE 0.6 MG TAB PO SCH ×2 (09:07→20:51)
--- NOTE | 2023-06-26 10:40 | XCELERA ---
[id number] [id number]
[2023-06-26] MEDS: KETOROLAC TROMETHAMINE 15 MG/ML VIAL IV SCH ×3 (11:58→23:50)
[2023-06-26] MEDS ORDERED: ENOXAPARIN INJ 40 MG/0.4 ML SYR SQ ONE (12:12)
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
--- NOTE | 2023-06-26 17:48 | XRay Report ---
TWO VIEW CHEST CLINICAL HISTORY: Atypical chest pain. Dyspnea. Crackles on physical examination.. FINDINGS: AP and lateral chest radiographs are compared to study dated 06/26/2023 and correlated with c hest CT dated 06/25/2023. The heart is enlarged noting atherosclerotic calcification of the thoracic ao rta. There is pulmonary vascular congestion. Small pleural effusions are noted with dependent atelect asis. There is no pneumothorax. The skeletal structures are osteopenic. The bony thorax appears intac t. IMPRESSION: 1. Cardiomegaly with pulmonary vascular congestion. 2. Small pleural effusions. 3. Some of the cardiac enlargement corresponds to a pericardial effusion when correlated with yesterd ay's chest CT. The pericardium appears mildly thickened and enhancing by CT. Correlate clinically for evidence of pericarditis. ACT 112: Negative or not required by law. Electronically signed by: Tra Tovar M.D. 06/26/2023 5:46 PM
[2023-06-26] MEDS: TOPIRAMATE 100 MG TAB PO SCH (20:51)
[2023-06-27] MEDS: PANTOprazole 40 MG TAB PO SCH (04:55)
[2023-06-27] MEDS: KETOROLAC TROMETHAMINE 15 MG/ML VIAL IV SCH (05:36)
[2023-06-27 06:13] LABS: Basophils # (auto) 0.05 K/uL (0-0.2); Basophils % (auto) 0.5 %; Eosinophils % (auto) 0.9 %; Hematocrit (blood only) 40.5 % (42.0-52.0); Hemoglobin 13.3 g/dl (14.0-18.0); Immature Granulocytes # (auto) 0.04 K/uL (0.01-0.20); Immature Granulocytes % (auto) 0.4 %; Mean Corpuscular Hemoglobin 29.7 pg (25.0-34.0); Mean Corpuscular Hgb Conc 32.8 g/dL (32.0-36.0); Mean Corpuscular Volume 90.4 fL (80.0-100.0); Mean Platelet Volume 9.9 fL (9.4-12.4); Monocytes # (auto) 0.72 K/uL (0.11-0.59); Monocytes % (auto) 6.6 %; Neutrophils # (auto) 8.84 K/uL (1.40-6.50); Neutrophils % (auto) 80.6 %; Platelet Count 229 K/uL (130-400); RDW Coefficient of Variation 12.3 % (11.5-14.5); RDW Standard Deviation 40.8 fL (36.4-46.3); Red Blood Count 4.48 M/uL (4.70-6.10); White Blood Count 10.95 K/ul (4.8-10.8)
[2023-06-27 06:23] LABS: BUN Creatinine Ratio 19.4 (10-20); Calcium 8.6 mg/dl (8.6-10.3); Creatinine Clr Calc Pharmacy 54.7 ml/min; Est GFR (African American) 61.8 ml/min; Est GFR (Non-African American) 53.3 ml/min; Potassium 3.9 mmol/L (3.5-5.1)
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
[2023-06-27] MEDS ORDERED: KETOROLAC TROMETHAMINE 15 MG/ML VIAL IV PRN (07:01)
[2023-06-27] MEDS: INSULIN ASPART PER UNIT CHARGE SC SCH ×2 (07:46→11:45)
[2023-06-27] MEDS: COLCHICINE 0.6 MG TAB PO SCH (08:23)
[2023-06-27] MEDS: FAMOTIDINE 40 MG TABLET PO SCH (08:23)
--- NOTE | 2023-06-27 10:20 | Discharge Summary ---
Date of Service June 27, 2023 Admission HPI Per Admitting Provider Jose Garcia is a 68 year old male who presents to the ER with chest pain and shortness of breath. He was recently admitted from June 14 - with chest pain suspected to be gastrointestinal in origin at that time with normal troponins, EKG and echocardiogram. He reports feeling well at discharge. However a few days after discharge he reports worsening shortness of breath, chest pain on exertion and on sitting up, progressively getting worse. Chest pain no worse on inspiration. Current severity 6/10 but was worse than this yesterday. Radiates to his jaw. Associated non-productive cough. No palpitations, oanh ication or presyncope. No other respiratory, gastrointestinal or urinary symptoms. Associated chills but no objective fever. On follow up with his PCP he was advised to return to the emergency room. Admission Exam Per Admitting Provider Constitutional: well developed; + not well nourished and no acute distress Eyes: PERRL, conjunctivae normal, anicteric sclerae ENMT: external ear and nose normal, oropharynx normal Respiratory: normal respiratory effort, lungs clear to auscultation Cardiovascular: Rate/Rhythm: regular rate and regular rhythm Heart Sounds: no murmur Extremities: normal capillary refill; no calf tenderness and no pedal edema Gastrointestinal (Abdomen): normal bowel sounds, soft, nontender, no hepatosplenomegaly Musculoskeletal: no cyanosis or clubbing, extremities motor strength 5/5 Skin: no rashes, warm and dry Neurologic: moves all extremities and awake; not confused Psychiatric: A+Ox3, euthymic affect Genitourinary: no CVA tenderness Principal Diagnosis Pericarditis Discharge Exam General:Alert and oriented, no acute distress, HEENT: Normocephalic, moist oral mucosa, Cardio: Regular rate and rhythm, Resp:No wheezes or rhonchi, faint crackles heard in the lung bases, unchanged from yesterday evening GI: Soft and nontender, nondistended, bowel sounds active Skin: Warm, pink, dry, Psych: Mood-affect congruence. Discharge Data Allergies Allergy/AdvReac Type Severity Reaction Status Date / Time zolpidem AdvReac Unknown hallucinati Verified 06/25/23 13:20 ons pregabalin [From Lyrica] AdvReac Anxiety Verified 06/25/23 13:20 Consultations 06/25/23 20:05 Consult Cardiology Routine Ordered Studies 06/25/23 15:12 CT abd pelvis IV con only Stat CT angio chest PE protocol Stat Hospital Course (1) Pericarditis: (2) Pericardial effusion: (3) Gastroesophageal reflux disease: (4) Diabetes mellitus: Plan #Pericarditis with small pericardial effusion - CT chest 06/25/23 showed pericardial effusion, TTE showed effusion is small and EF= 50-55% - drop in sBP 5mmHg from expiration to inspiration - cardiology consulted, noting pericarditis likely viral, recommending continuation of colchicine and adding another NSAID, no pericardiocentesis neede d - lyme IgG/IgM negative - WBC count decreasing, 15 -> 10 - continue colchicine 0.6mg BID, will continue on discharge - will start meloxicam 7.5 mg daily to continue on discharge #Pseudohyponatremia, resolved - Na on admission 134, corrected Na yesterday 133, today 135 #DMT2 - SSI while inpatient - monitor BSG at least daily while on SSI - continue home meds on discharge #GERD - continue pepcid and protonix #Urinary retention - continue Topiramate Disposition: home Total Time Total Time Spent Total Time Spent (In Minutes): As per attending attestation. Discharge Plan Discharge Items Patient Disposition: Home - Self-Care Reason For Visit: PERICARDITIS WITH PERICARDIAL EFFUSION Discharge Diagnosis: Pericarditis Activity: Per Instructions section Non-emergency contact: Primary Care Provider Call non-emergency contact if: you have any medication questions, your symptoms worsen, your pain is not controlled and your temperature is above 101.5 Follow-up/Referrals: Sid Richards, [Primary Care Provider] - 07/03/23 1:00 pm Diet: Regular Addtl Attending Provider Instructions: You were admitted for pericarditis. You were treated with colchicine and non- steroidal anti-inflammatories (NSAIDs). Your symptoms have improved, and we feel it is safe for you to return home. Medications: Your medication list has been reviewed and reconciled upon discharge to ensure accuracy and continuity of care. An updated list of all your medications is included with your hospital discharge paperwork. Please review this list closely, and make note of any changes. We sent a new medication called colchicine to your pharmacy. Take colchicine 0.6mg twice daily. We sent a new medication called meloxicam to your pharmacy. Take meloxicam 7.5mg daily for 2 weeks. We sent a new medication called guaifenesin to your pharmacy. Take guaifenesin as needed for cough. If you have any issues filling these prescriptions, please call [phone] and ask to leave a message for Dr. Brower. Take your medications as instructed; do not skip a dose of your medicines. Make sure all of your doctors know every medicine you are taking (including rynx-xku-tolzrao medicines, vitamins, and supplements). Call your primary care provider before taking any new medicines (including over- the-counter medicines, vitamins, and supplements), because some of these may interact with your current medications, or may make your symptoms worse. Tell your primary care provider if you cannot afford your medications. Activity: You can do normal everyday activities as your body allows. Take rest breaks if you feel tired. Do not overexert. Stop activity if you have pain, shortness of breath or feel dizzy. Follow-up appointments: Make an appointment with your primary care physician within one week of discharge. A copy of this summary will be sent to them. Every time you see your primary care physician, or any other doctor, bring your medication list, a list of questions, and your recent weights. CONTACT YOUR PRIMARY CARE PROVIDER if you experience any of the following: Shortness of breath or difficulty breathing Swelling of your feet, ankles, hands or abdomen Feeling tired with normal activity or experiencing dizziness or fainting Difficulty following your treatment plan, or difficulty taking medications CALL 911 OR GO TO THE EMERGENCY DEPARTMENT if you experience any of the following: Severe abdominal pain or nausea/vomiting Severe chest pain, or chest pain that radiates (moves) to your jaw or arm Sudden, severe shortness of breath or difficulty breathing Thank you for allowing us to participate in your care. Pending Studies at Discharge: No Stand-Alone Forms: [facility] Medications and DC Order Prescriptions: New colchicine (gout) [Colcrys] 0.6 mg Tablet 0.6 mg PO BID 90 Days Qty: 180 0RF meloxicam 7.5 mg tablet 7.5 mg PO DAILY Qty: 14 0RF guaifenesin [Mucinex] 600 mg tablet extended release 12hr 600 mg PO BID PRN (Reason: cough) Qty: 30 0RF Continued tramadol 50 mg tablet 100 mg PO Q6H PRN (Reason: Pain) Qty: 60 0RF topiramate 100 mg Tablet 2 tab PO HS diphenhydramine-acetaminophen [Tylenol PM Extra Strength] 25-500 mg Tablet 1 - 2 tab PO HS PRN (Reason: Insomnia) metformin 500 mg tablet 500 mg PO DAILY Rx Instructions: 500mg once a day cyanocobalamin (vitamin B-12) [Vitamin B-12] 100 mcg Tablet 0 mcg PO DAILY famotidine 40 mg Tablet 40 mg PO QAM Qty: 30 0RF sucralfate 1 gram tablet 1 g PO Q6H 28 Days Qty: 112 0RF pantoprazole 40 mg tablet,delayed release (DR/EC) 40 mg PO DAILYBB Discharge Orders: Discharge Order (Routine); Ordered 06/27/23 Ordered By: Sharonda Chen/Other Patient Handouts: Pericarditis, Treatment for Pericardial Effusion Admission Data Admit Date/Time: 06/25/23 18:00 Attending Provider: Randall Soler Admit Provider: Alexander Mehta Primary Care Provider: Sid Richards Other Providers: Jarek Scott Other Interventions: Discharge Summary Assessment (RN) Last Done: 06/27/23 12:26 Supervising Physician Co-Signing Physician Notes Attending attestation Pt seen and examined in concert with Dr. Brower. In agreement with the documented findings as noted in the resident documentation with any exceptions or additions as noted here. Resting in chair at bedside. Improved central chest pain with shortness of breath on exertion that is mild and nonlimiting for him at present. On examination, S1/S2 nl RRR no MCG. CTAB. Abd NT/ND BS+ve Pericarditis with small pericardial effusion - cardiology consult - continue colchicine, meloxicam as noted. Can resume tramadol at home regimen for additional pain control if required. Else see resident documentation as noted. Total attending physician time spent with this patient's care on the day of discharge: 35 minutes. Resident Activity Tracking Resident Involvement: Resident Care Provided Care Provided: Adult Hospital Medicine
--- NOTE | 2023-06-27 11:16 | Electrocardiogram Report ---
Test Reason : Blood Pressure : / mmHG Vent. Rate : 099 BPM Atrial Rate : 099 BPM P-R Int : 164 ms QRS Dur : 086 ms QT Int : 302 ms P-R-T Axes : 024 -25 047 degrees QTc Int : 387 ms Normal sinus rhythm Nonspecific ST and T wave abnormality Abnormal ECG When compared with ECG of 25-JUN-2023 14:11, No significant change was found Confirmed by Angel Guzman ([id number]) on 06/27/2023 11:16:13 AM Referred By: REFERRED SELF Confirmed By:Ho Guzman
== END 2023-06-27 14:01 | disposition home or self-care (01) | DRG 316 ==
LOC: ED 14:05 → 2E 18:00 → SUATTDRO 18:00 → 2E 19:31

== ENCOUNTER 2024-06-01 05:34 | Observation (INO) ==
--- NOTE | 2024-05-28 21:05 | Anesthesiology Consultation ---
Date of Service May 28, 2024 Assessment & Plan (1) Encounter for pre-operative examination: Plan - Check BSG AM DOS - Infectious disease screening: Per assessment on 05/28/24: No known recent infectious disease contacts or current infectious disease symptoms. - Cardiology visit (01/29/24): "His history dates back to last summer when he had episode of pericarditis but was thought to be related to a viral syndrome.. He has been evaluated for chest discomfort multiple times since June. He notes his discomfort he is having now is much different than his pericarditits. Chest tightness lying flat. He has right-sided reproducible chest discomfort today.. no evidence of dissection on his most recent CAT scan.. troponins have all been normal and he has never had significant ST changes on his EKG nor any noted wall motion abnormalities.. I do not think his chest discomfort is cardiac in etiology.. Some of it actually may be bone marrow pain given his elevated hemoglobin.. he looks chronically ill.. he was seen by hematology today who ordered laboratory studies to rule.. in polycythemia vera and he underwent phlebotomy.. Once his hemoglobin normalizes it will be interesting to see if his musculoskeletal discomfort and overall chest pain improves.. recommend an echocardiogram to reassess his LV function" > Echo done 02/10/24- no wall motion abnormalities, EF 55%. - Radiation oncology visit (05/27/24): "Mr. 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 The patient did have staging studies completed which do show diffuse pulmonary nodules in both lungs. A biopsy of one of the lung nodules is scheduled shortly. The patient has been seen by Dr. Silva at ENT in [facility] who recommended definitive chemotherapy with radiation therapy. The patient's case was discussed at our multidisciplinary tumor board on 05/26/2024 and the recommendation was to proceed with definitive chemotherapy and radiation therapy while also pursuing a biopsy of the pulmonary nodules to confirm the patient's overall stage. Currently, the patient is symptomatic with pain involving his head neck cancer. The patient now presents with his family to discuss the role of radiation therapy." - Recent anesthesia hx: EGD with gastrostomy tube placement done under [facility] (per operative report), done 05/20/24 at [facility] - Patient acceptable risk for given surgery pending evaluation DOS. Chart Review Chart Review: Patient NOT seen in Pre Admission Testing History Surgery Operation Date: 06/01/24 07:15 Proposed Procedures p Robotic Navigational Bronchoscopy - Daniel Fierro MD s Endobronchial Ultrasound - Daniel Fierro MD Height/Weight Height: 5 ft 7 in Weight: 78.471 kg Allergies Allergy/AdvReac Type Severity Reaction Status Date / Time zolpidem AdvReac Intermediate Hallucinati Verified 05/28/24 20:46 ons pregabalin [From Lyrica] AdvReac Mild Anxiety Verified 05/28/24 15:26 Medications Home Medications Medication Instructions Recorded Confirmed Last Taken cyanocobalamin (vitamin B-12) 100 100 mcg PO DAILY 06/14/23 05/28/24 01/28/24 mcg tablet (Vitamin B-12) pantoprazole 40 mg tablet,delayed 40 mg PO QAM 90 days #90 tabs 11/28/23 05/28/24 01/28/24 release topiramate 100 mg tablet 100 mg PO BID 01/18/24 05/28/24 01/28/24 metformin 500 mg tablet 500 mg PO BID #180 tabs 05/15/24 05/28/24 Unknown oxycodone-acetaminophen 5 mg-325 1 tab PO Q4H PRN Pain 05/27/24 05/28/24 Unknown mg tablet (Percocet) famotidine 40 mg tablet 40 mg PO QAM 05/28/24 05/28/24 Unknown ibuprofen 200 mg tablet 800 mg PO Q6H PRN Pain 05/28/24 05/28/24 Unknown Past Medical History Medical History Chronic back pain CKD (chronic kidney disease), stage III Diabetes mellitus, type 2 DJD (degenerative joint disease) right hip Dyslipidemia Erectile dysfunction Foot drop left GERD (gastroesophageal reflux disease) Hemorrhoids History of anemia History of pericarditis History of seizure (2005) most recent 2005, due to TBI History of urinary retention Hx of migraines Hx of renal calculi Left ear hearing loss Malignant neoplasm of base of tongue Will start XRT in next few weeks, still able to eat, had PEG placed last week Odynophagia Osteoarthritis Polycythemia Pulmonary hypertension Follows with Dr. Fierro Echo 01/2024: Normal estimated pulmonary artery pressures, estimated PASP 25mmhg Pulmonary nodules Sleep apnea Possible/suspected Per pulm visit 02/2024, "The patient has never had a sleep study. His notes that his breathing is somewhat irregular during the night. He is sleepy during the day and falls asleep at inappropriate times with an [place] sleepiness score of about 15. 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 Past Family History Family History Father Family history of diabetes mellitus Heart problem Mother Cancer breast Brother Family history of esophageal cancer Diabetes Sister Cancer breast Other No family history of adverse response to anesthesia Past Surgical History Surgical History History of appendectomy History of colonoscopy History of esophagogastroduodenoscopy (EGD) History of laminectomy (08/11/18) History of lithotripsy x2 History of nephrectomy (2005) left r/t traumatic injury History of spinal fusion x2 History of tooth extraction total History of wisdom tooth extraction PEG (percutaneous endoscopic gastrostomy) status (05/2024) S/P epidural steroid injection multiple / caudal injections Social History Smoking Status: Never smoker Do You Dip or Chew Tobacco: No Hx Alcohol Use: No Alcohol type: hard liquor alcohol intake frequency: holidays/special occasions only Hx Substance Use: No substance use type: does not use Substance Use Type Other:: Tramadol prescribed Lab Results Anesthesia Preop Results Results Anesthesia Widget: WBC 8.00 K/ul (4.8-10.8) 05/14/24 Hgb 15.2 g/dl (14.0-18.0) 05/14/24 Hct 44.5 % (42.0-52.0) 05/14/24 Plt 178 K/uL (130-400) 05/14/24 Na 137 mmol/L (136-145) 05/14/24 K 4.3 mmol/L (3.5-5.1) 05/14/24 Cl 108 mmol/L (98-107) H 05/14/24 CO2 24 mmol/L (21-32) 05/14/24 BUN 15 mg/dl (6-23) 05/14/24 Creat 1.20 mg/dl (0.6-1.4) 05/14/24 Glucose Level 219 mg/dl (70-99(Fasting)) H 05/14/24 HA1c 7.1 % (4.5-5.6) H 05/14/24 Testing Electrocardiogram Date: 01/28/24 NSR at 71bpm. LAD. Minimal voltage criteria for LVH, may be normal variant. NS TWA. Echocardiogram Date: 02/10/24 EF 55%. Mild LVH. Grade I DD. No significant valvular disease. Normal estimated pulmonary artery pressures, estimated PASP 25mmhg. Pulmonary Function Test Date: 03/10/24 Unremarkable spirometry and lung volumes with isolated decrease in diffusion capacity. No significant change after administration of inhaled bronchodilators. Other Testing Soft tissue neck CT Date: 05/14/24 Impression: Left base of tongue lesion is seen which demonstrated avid FDG uptake on prior PET/CT. Subcentimeter lymph nodes are seen on the left. Chest CT Date: 05/14/24 1. Significant increase in the size and number of numerous pulmonary nodules as compared to 02/14/2024. These are similar to 05/13/2024 PET examination and are consistent with multifocal pulmonary metastatic disease. 2. There is no airspace consolidation typical for pneumonia or pleural effusion. 3. Coronary artery atherosclerosis.
--- OUTSIDE RECORDS SUMMARY | 2024-06-01 05:39 | External Medical Summary | Continuity of Care Document ---
Author Name Unknown Organization [facility] Address [address] [place] [id number] Care Team Providers Care Credit Charge Authorizer Name Role Phone Sid Richards Primary Care Physician [phone] Encounter [facility] [id number] Date(s): 05/20/24 - 05/20/[address] [phone] [phone] Encounter Diagnosis Dysphagia(Discharge Diagnosis) - 05/20/24 Discharge Disposition: Home or Self Care Attending Physician: MD Daysi, Tra Guerrier Allergies, Adverse Reactions, Alerts Substance Criticality Severity Reaction Reaction Severity Status Ambien Active Lyrica Unable to assess criticality Moderate dizziness Active Functional Status 05/20/24 Neurological Symptoms Numbness, Tingling, Other: left foot ADLs Unable to assess Facial Symmetry Symmetric Gait Unable to assess Swallowing Difficulty NPO Level of Consciousness Neuro Alert Hallucinations Present None History of Fall in Last 3 Months River Y es Presence of Secondary Diagnosis River Ye s Use of Ambulatory Aid River None/bedrest /nurse assist IV/Heparin Lock Fall Risk River Yes Gait/Transferring Fall Risk River Normal /bedrest/immobile Mental Status Fall Risk River Oriented t o own ability River Fall Risk Score 60 River Fall Risk High risk Speech Pattern Clear Immunizations Given and Recorded Vaccine Date Status Refusal Reason influenza virus vaccine, inactivated 08/20/19 Give n influenza virus vaccine, inactivated 11/26/18 Give n influenza virus vaccine, inactivated 07/30/16 Give n influenza virus vaccine, inactivated 11/08/15 Lyndon rded influenza virus vaccine, inactivated 09/14/14 Lyndon rded pneumococcal 13-valent vaccine 04/20/19 Given tetanus toxoids-diphtheria, Td (Adult) 07/13/14 Re corded pneumococcal 23-valent vaccine 10/13/13 Recorded Medications acetaminophen-oxycodone 325 mg-5 mg oral tablet Start: 05/15/24 11:09:00 AM EDT, 1 tab, PO, q6h, Refills: 0, PRN: as needed for pain Start Date: 05/15/24 Status: Ordered famotidine 40 mg oral tablet Start: 05/15/24 11:09:00 AM EDT, 1 tab, PO, Daily Start Date: 05/15/24 Status: Ordered metFORMIN 500 mg oral tablet Start: 04/12/22 9:30:00 AM EDT, See Instructions, Disp# 180 tab, Refills: 3, TAKE 1 TABLET BY MOUTH TWICE DAILY, Pharmacy: [id number] Start Date: 04/12/22 Status: Ordered One Touch Ultra Blue Test Strips Start: 12/23/15 4:00:00 PM EST, See Instructions, bid, Disp# 1 box Start Date: 12/23/15 Status: Ordered One Touch Ultrasoft (28G) Lancets Start: 12/23/15 4:02:00 PM EST, See Instructions, bid, Disp# 1 box Start Date: 12/23/15 Status: Ordered pantoprazole 40 mg oral delayed release tablet Start: 10/16/18 11:37:24 AM EST, 1 tab, PO, Daily, Disp# 90 tab, Refills: 1, Pharmacy: [id number] Start Date: 10/16/18 Stop Date: 04/14/19 Status: Ordered topiramate 100 mg oral tablet See Instructions, Disp# 120 tab, Refills: 0, TAKE TWO TABLETS BY MOUTH DAILY, Pharmacy: [id number] Start Date: 03/16/21 Status: Ordered traMADol 50 mg oral tablet Start: 01/29/24 10:06:00 AM EDT, 0.5 tab, PO, q4h, PRN: as needed for pain Start Date: 01/29/24 Status: Ordered Vitamin B12 Start: 03/17/21 11:11:00 AM EDT Start Date: 03/17/21 Status: Ordered Mental Status 05/20/24 Communication Barrier Present No Problem List Condition Confirmation Course Effective Dates Status H ealth Status Informant Right ankle pain Confirmed Active Squamous cell carcinoma of base of tongue Confirmed Active Chest pain Confirmed Active Macular degeneration Confirmed Active Conversion disorder Confirmed Active Left foot drop Confirmed Active Hx of gastroesophageal reflux (GERD) Confirmed Active History of lumbar spinal fusion Confirmed Active Erectile dysfunction Confirmed Active Chronic left lumbar radiculopathy Confirmed Active Myofascial pain Confirmed Active Neuralgia of flank Confirmed Active DJD (degenerative joint disease) Confirmed Active Scapulalgia Confirmed Active Seizure disorder Confirmed Active Spinal stenosis Confirmed Active Diabetes mellitus type 2 with neurological manifestations Confirmed Active Weight disorder Confirmed Active Diagnosis Diagnosis Type Effective Dates Health Status Clini rashawn Service Informant Dysphagia Discharge Diagnosis 05/20/24 Non-Specified Procedures Procedure Date Related Diagnosis Body Site Status Chest X-ray 1 08/20/19 Completed Injection 2 04/06/19 Completed Injection 3 03/30/19 Completed Abdominal Ultrasound RUQ 4 02/19/19 Completed X-ray of lumbar spine and sa croiliac joints 5 10/27/[address] of abdomen and pelvis 6 06/02/18 Completed MRI of lumbar spine 7 04/18/18 Com pleted FOB - Fecal occult blood screening 8 08/21/17 Completed Tibia and fibula X-ray 9 04/13/17 Completed X-ray of right foot 10 04/13/17 Co mpleted Chest x-ray 11 02/13/[address] of lumbar spine 12 01/30/16 Com pleted Skeletal X-ray of pelvis and hip 13 01/16/16 Completed X-ray of thoracic spine 14 12/26/15 Completed Lumbar radiculopathy 11/16/15 Comp leted Endoscopic biopsy of esophagus 15 10/28/15 Completed Gastric biopsy 16 10/28/15 Complet ed Upper GI endoscopy 17 10/28/15 Com pleted Plain X-ray lumbar spine normal 18 10/01/15 Completed Ultrasound scan of upper abdomen 19 10/01/15 Completed Abnormal brain MRI 20 09/21/15 Com pleted Colonoscopy 21 12/07/13 Completed APPENDECTOMY Completed History of back surgery 22 Completed Nephrectomy 23 Completed 1No acute cardiopulmonary disease. 2Botox injection. 3caudal epidural steroid injection under fluoroscopic guidance 4Impression: 1. Normal gallbladder, no gallstones. 2. Hepatic steatosis. 3. The pancreas was obscured by overlying bowel gas. 5Mild sclerotic degenerative change as above with no acute bony abnormality identified. 6No acute process. Nonobstructive bowel pattern. Absent left kidney. 71. Interval postsurgical changes of removal of the right transpedicular screw and elsi fixation hardware from L4 to S1. Left transpedicular screw and elsi fixation of L4-S1 with interbody spacer at L5-S1 remains in place. Laminectomy defects of L4-5. 2. Fluid collection in the operative bed along the right aspect of the L5 vertebral body level, likely postsurgical seroma. Sterility cannot be confirmed. Correlate clinically. No convincing evidence of pseudomeningocele. 3. Multilevel degenerative changes with spinal canal narrowing most severe at L2-3. No convincing evidence of cauda equina impingement. The degree of narrowing is identical to the prior exam in 2015. Multilevel neural foraminal narrowing most severe at L3-4. Further details as above. 8negative 91. mild dorsal oft tissue edema. no frature identified 2. osteopenia and large dorsal heel spur 101. no acute bony abnormality is seen in right foot 2. osteopenia arthritic change and heel spur 11Low lung volumes with no active disease in the chest 12degenerative and postoperative change. No major disc herniation or significant component of spinal stenosis based on this study. Degenerative changes of posterior elements with osteophytic narrowing of several neural foramina 131. no acute fracture of the pelvis or hips 2. mild bilateral hip osteoarthritis, greater on the right 14mild degenerative change as above with no acute bony abnormality identified involving the throacic spine 151. Benign squamous and gastric type glandular mucosa with no specific abnormality. 2. Negative for instestinal metaplasia, dysplasia, and carcinoma 161. Mild chronic gastritis 2. Negative for acute inflammation, intestinal metaplasia, dysplasia and carcinoma. 3. H. Pylori immunoperoxidase stain negative 17Z-line irregular. Biopsied. Gastritis. Biopsied. Normal examined duodenum. 181. No acute fractures or subluxations. 2. Postsurgical changes with worsening degenerative changes. 19The pt's reported left-sided abdominal wall mass isnt visualized on ultraosund scanning. 201. No evidence of acute infarct. No acute intracranial hemorrhage. 2. Small focus of signal abnormality within the left aspect of the splenium of the corpus callosum.Associated susceptibility artifact suggests a small amount of old blood products. While nonspecific, the findings suggest either the sequela of remote trauma or ischemic change. 3. Gyrlform T1 hyperintesity within the left occipital lobe with mild associated enhancement shown on the postcontrast images. The findings could reflect a subacute to chronic infarct or old posttraumatic change. A follow up MRI the brain in 3 months is recommended to assess these indeterminate findings. 21impression - The examined portion of the ileum was normal - Diverticulosis in the sigmoid colon - The examinationwas otherwise normal on direct and retroflexion views 22lumbar vertebral fusion Dr Mueller 23left Vital Signs Most recent to oldest [Reference Range]: 1 2 3 Height 168.6 cm (05/20/24 9:48 AM) Patient Weight 78.5 kg (05/20/24 9:48 AM) Body Mass Index 27.62 kg/m2 (05/20/24 9:48 AM) Temperature [36.5-37.9 DegC] 36.5 DegC (05/20/24 6:20 PM) 36.4 DegC *LOW* (05/20/24 3:03 PM) 36 DegC *LOW* (05/20/24 2:33 PM) Heart Rate 68 bpm (05/20/24 7:04 PM) 65 bpm (05/20/24 6:50 PM) 65 bpm (05/20/24 6:20 PM) Respiratory Rate 16 br/min (05/20/24 7:04 PM) 28 br/min (05/20/24 6:50 PM) 16 br/min (05/20/24 6:20 PM) Blood Pressure 151/73mmHg (05/20/24 7:04 PM) 178/83mmHg (05/20/24 6:50 PM) 127/76mmHg (05/20/24 6:20 PM) Mean Blood Pressure 96 mmHg (05/20/24 7:04 PM) 112 mmHg (05/20/24 6:50 PM) 92 mmHg (05/20/24 6:20 PM) Cuff Pulse Pressure 78 mmHg (05/20/24 7:04 PM) 95 mmHg (05/20/24 6:50 PM) 51 mmHg (05/20/24 6:20 PM) BP Location # 1 Left Arm (05/20/24 7:04 PM) Left Arm (05/20/24 6:50 PM) Left Arm (05/20/24 6:20 PM) Social History Social History Type Response Smoking Status Never smoked cigaret letha Sex Male Pre-OP H & P * MD Zenon, Charline Key: PERFORM Event Display: Pre-OP H & P Authored Date: [id number] PRE-OPERATIVE HISTORY AND PHYSICAL Name: MADDY HENDERSON Patient Number: [id number] : 1955 Date of Service: 05/19/2024 PRE-OP Diagnosis: dysphagia, base of tongue tumor Planned Procedure: egd, peg Chief Complaint: dysphagia History of Present Illness (including history relevant to procedure): 69 year old male with a SCC lesion at the base of the tongue presents for the above procedure. The tumor causes tongue and ear pain and dysphagia. Other history includes HLD, DM II, GERD, DJD, TBI, polycythemia, hx of pericarditis, and pulmonary nodules. No previous airway information available. TTE 01/2024: Review Of Systems: Negative Findings Constitutional x _ HEENT x _ Respiratory x _ Cardiovascular x _ Gastrointestinal x _ Genitourinary x _ Hem/Lymph x _ Endocrine x _ Musculoskeletal x _ Immunologic x _ Skin x _ Neurologic x _ Psychiatric x _ Other x _ Past Medical History: Problems: Squamous cell carcinoma of base of tongue Neuralgia of flank Chest pain Scapulalgia Left foot drop Myofascial pain Seizure disorder Right ankle pain Macular degeneration Chronic left lumbar radiculopathy History of lumbar spinal fusion DJD (degenerative joint disease) Diabetes mellitus type 2 with neurological manifestations Weight disorder Conversion disorder Spinal stenosis Hx of gastroesophageal reflux (GERD) Erectile dysfunction Procedure History Procedure Procedure Date Comments History of back surgery - lumbar vertebral fusion Dr Mueller Nephrectomy - left APPENDECTOMY Chest X-ray 08/20/2019 - No acute cardiopulmonary disease. Injection 04/06/2019 - Botox injection. Injection 03/30/2019 - caudal epidural steroid injection under fluoroscopic guidance Abdominal Ultrasound RUQ 02/19/2019 - Impression: 1. Normal gallbladder, no gallstones.2. Hepatic steatosis.3. The pancreas was obscured by overlying bowel gas. X-ray of lumbar spine and sacroiliac joints 10/27/2018 - Mild sclerotic degenerative change as above with no acute bony abnormality identified. CT of abdomen and pelvis 06/02/2018 - No acute process. Nonobstructive bowel pattern. Absent left kidney. MRI of lumbar spine 04/18/2018 - 1. Interval postsurgical changes of removal of the right transpedicular screwand elsi fixation hardware from L4 to S1. Left transpedicular screw and rodfixation of L4-S1 with interbody spacer at L5-S1 remains in place. Laminectomydefects of L4-5.2. Fluid collection in the operative bed along the ri ght aspect of the [id number] body level, likely postsurgical seroma. Sterility cannot be confirmed.Correlate clinically. No convincing evidence of pseudomeningocele.3. Multilevel degenerative changes with spinal canal narrowing most severe atL2-3. No convincing evidence of cauda equina impingement. The degree ofnarrowing is identical to the prior exam in 2014. Multilevel neural foraminalnarrowing most severe at L3-4. Further details as above. FOB - Fecal occult blood screening 08/21/2017 - negative Tibia and fibula X-ray 04/13/2017 - 1. mild dorsal oft tissue edema. no frature identified2. osteopenia and large dorsal heel spur X-ray of right foot 04/13/2017 - 1. no acute bony abnormality is seen in right foot2. osteopenia arthritic change and heel spur Chest x-ray 02/13/2016 - Low lung volumes with no active disease in the chest CT of lumbar spine 01/30/2016 - degenerative and postoperative change. No major disc herniation or significant component of spinal stenosis based on this study. Degenerative changes of posterior elements with osteophytic narrowing of several neural foramina Skeletal X-ray of pelvis and hip 01/16/2016 - 1. no acute fracture of the pelvis or hips2. mild bilateral hip osteoarthritis, greater on the right X-ray of thoracic spine 12/26/2015 - mild degenerative change as above with no acute bony abnormality identified involving the throacic spine Lumbar radiculopathy 11/16/2015 Gastric biopsy 10/28/2015 - 1. Mild chronic gastritis2. Negative for acute inflammation, intestinal metaplasia, dysplasia andcarcinoma.3. H. Pylori immunoperoxidase stain negative Endoscopic biopsy of esophagus 10/28/2015 - 1. Benign squamous and gastric type glandular mucosa with no specific abnormality.2. Negative forinstestinal metaplasia, dysplasia, and carcinoma Upper GI endoscopy 10/28/2015 - Z-line irregular. Biopsied. Gastritis. Biopsied. Normal examined duodenum. Ultrasound scan of upper abdomen 10/01/2015 - The pt's reported left-sided abdominal wall mass isnt visualized on ultraosund scanning. Plain X-ray lumbar spine normal 10/01/2015 - 1. No acute fractures or subluxations. 2. Postsurgical changes with worsening degenerative changes. Abnormal brain MRI 09/21/2015 - 1. No evidence of acute infarct. No acute intracranial hemorrhage. 2. Small focus of signal abnormality within the left aspect of the splenium of the corpus callosum. Associated susceptibility artifact suggests a small amount of old blood products. While nonspecific, the findings suggest either the sequela of remote trauma or ischemic change.3. Gyrlform T1 hyperintesity within the left occipital lobe with mild associated enhancement shown on the postcontrast images. The findings could reflecta subacute to chronic infarct or old posttraumatic change. A follow up MRI the brain in 3 months isrecommended to assess these indeterminate findings. Colonoscopy 12/07/2013 - impression- The examined portion of the ileum was normal- Diverticulosis in the sigmoid colon- The examinationwas otherwise normal on direct and retroflexion views Allergies and Sensitivities: Lyrica(dizziness) Arthurien Current Home Meds: (Last Updated 05/15 11:10) AlOH/diphenhyd/MgOH/simeth topical (Magic (Maalox/diphenhydrAMINE) Mouthwash) 5 mL swish + spit q6hPRN: mouth sore pain | mouth sore pain acetaminophen-oxycodone (acetaminophen-oxycodone 325 mg-5 mg oral tablet) 1 tab PO q6h PRN: as needed for pain cyanocobalamin (Vitamin B12) cyclobenzaprine (cyclobenzaprine 10 mg oral tablet) 10 mg PO bid PRN: as needed for spasm diabetic supplies (One Touch Ultra Blue Test Strips) bid diabetic supplies (One Touch Ultrasoft (28G) Lancets) bid famotidine (famotidine 40 mg oral tablet) 40 mg PO Daily lidocaine topical (lidocaine topical 5% patch) 1 patch topical Daily remove patches after 12 hours metFORMIN (metFORMIN 500 mg oral tablet) TAKE 1 TABLET BY MOUTH TWICE DAILY methocarbamol (Robaxin 500 mg oral tablet) 500 mg PO q8h pantoprazole (pantoprazole 40 mg oral delayed release tablet) 40 mg PO Daily topiramate (topiramate 100 mg oral tablet) TAKE TWO TABLETS BY MOUTH DAILY traMADol (traMADol 50 mg oral tablet) 25 mg PO q4h PRN: as needed for pain No Vital Signs Data Available Initial Wt: No Data Available Physical Exam: (relevant to the procedure, including heart and lung evaluation) General: _ HEENT: _ Neck: _ Cardiac: _ Lungs: _ Abdomen: _ Rectal: _ : _ Back: _ Extremities: _ Neuro: _ Skin: _ Studies of Lab Results (relevant to the procedure): _ ASSESSMENT: 69 M with dysphagia 2/2to SCC of tongue undergoing PEG tube placement for feeding access npo/ivf preop abx, scds informed consent obtained Electronic Signature on File Electronically Reviewed/Signed by: Charline Yarbrough MD Author Signature Dt/Tm:05/19/2024 01:58 PM Division of Minimally Invasive Surgery VJG * MD Daysi, Tra Guerrier: PERFORM Event Display: Pre-OP H & P Authored Date: [id number] General: _NAD HEENT: _ Neck: _ Cardiac: _RRR Lungs: _Celar B Abdomen: _Soft. RLQ appendectomy scar, L flank nephrectomy scar Rectal: _ : _ Back: _ Extremities: _no edema Neuro: _ Skin: _ SURGICAL HISTORY AND PHYSICAL UPDATE - NO CHANGE Name: MADDY HENDERSON Patient Number: [id number] : 1955 Date of Service: 05/20/2024 Patient identity, procedure and procedure site were identified by me, the attending physician. I have personally seen and examined the patient. The History and Physical was reviewed, and there are nochanges in the patient's condition. I have confirmed that the necessity for the procedure is still p resent. Electronic Signature on File CC: Tra Tavarez MD [address] [place] [id number] Electronically Reviewed/Signed by: Tra Tavarez MD Author Signature Dt/Tm:05/20/2024 12:44 PM Division of Minimally Invasive Surgery EMP * MD Pan Thomas A: MODIFY, PERFORM, SIGN, VERIFY Event Display: Anes H&P Authored Date: [id number] Patient: MADDY HENDERSON Age: 69 years Sex: Male : 1955 Associated Diagnoses: None Author: MD Pan Thomas A Preoperative Information Pre-Operative Diagnosis: Base of tongue tumor; dysphagia . Anesthiesia Preop Info: Procedure: EGD and gastostomy tube placement Date: 05/20/24 11:50 Surgeons: MD Daysi, Tra Guerrier Diagnosis: base of tongue tumor and dysphagia . Reference Report Created By: 05/19/2024 12:06:00, RUPAL Storey Marissa K, By Chart review. History of Present Illness 69 year old male with a SCC lesion at the base of the tongue presents for the above procedure. The tumor causes tongue and ear pain and dysphagia. Other history includes HLD, DM II, GERD, DJD, TBI, polycythemia, hx of pericarditis, and pulmonary nodules. No previous airway information available. Had a light meal @ 5h30. TTE 02/10/2024: Medical History Medical Devices: Medical Devices: none . Health Status Allergies: Allergic Reactions (Selected) Moderate Lyrica- Dizziness. Severity Not Documented Ambien- No reactions were documented.. Medications: Medication List (Selected) Prescriptions Prescribed Magic (Maalox/diphenhydrAMINE) Mouthwash: 5 mL, swish + spit, q6h, PRN: mouth sore pain | mouth sore pain, 90 mL, 1 Refill(s) Robaxin 500 mg oral tablet: 1 tab, PO, q8h, for 30 day, 90 tab, 0 Refill(s) cyclobenzaprine 10 mg oral tablet: 1 tab, PO, bid, PRN: as needed for spasm, 30 tab, 0 Refill(s) lidocaine topical 5% patch: 1 patch, topical, Daily, for 7 day, remove patches after 12 hours, 7 patch, 1 Refill(s) metFORMIN 500 mg oral tablet: See Instructions, TAKE 1 TABLET BY MOUTH TWICE DAILY, 180 tab, 3 Refill(s) pantoprazole 40 mg oral delayed release tablet: 1 tab, PO, Daily, for 90 day, 90 tab, 1 Refill(s) topiramate 100 mg oral tablet: See Instructions, TAKE TWO TABLETS BY MOUTH DAILY, 120 tab, 0 Refill(s) Documented Medications Documented One Touch Ultra Blue Test Strips: See Instructions, bid, 1 box One Touch Ultrasoft (28G) Lancets: See Instructions, bid, 1 box Vitamin B12: acetaminophen-oxycodone 325 mg-5 mg oral tablet: 1 tab, PO, q6h, PRN: as needed for pain, 0 Refill(s) famotidine 40 mg oral tablet: 1 tab, PO, Daily traMADol 50 mg oral tablet: 0.5 tab, PO, q4h, PRN: as needed for pain. Problem List: All Problems Chest pain / SNOMED CT 63552948 / Confirmed Chronic left lumbar radiculopathy / SNOMED CT 381434772 / Confirmed Conversion disorder / SNOMED CT 17618194 / Confirmed DJD (degenerative joint disease) / SNOMED CT 7878340102 / Confirmed Erectile dysfunction / SNOMED CT 707733239 / Confirmed History of lumbar spinal fusion / SNOMED CT 6116096208 / Confirmed Hx of gastroesophageal reflux (GERD) / SNOMED CT 460605072 / Confirmed Left foot drop / SNOMED CT 24316329 / Confirmed Macular degeneration / SNOMED CT 4688321412 / Confirmed Myofascial pain / SNOMED CT 366886880 / Confirmed Neuralgia of flank / SNOMED CT 44783412 / Confirmed Right ankle pain / SNOMED CT 956495767 / Confirmed Scapulalgia / SNOMED CT 69736432 / Confirmed Seizure disorder / SNOMED CT 822143241 / Confirmed Spinal stenosis / SNOMED CT 529732463 / Confirmed Squamous cell carcinoma of base of tongue / SNOMED CT 571687080 / Confirmed Diabetes mellitus type 2 with neurological manifestations / SNOMED CT 449034617 / Confirmed Weight disorder / SNOMED CT 644997414 / Confirmed Resolved: Abdominal pain / SNOMED CT 09454165 Resolved: Cough / SNOMED CT 11858467 Resolved: Diabetic neuropathy / SNOMED CT 181276166 Resolved: Heartburn / SNOMED CT 68936372 Resolved: History of kidney stones / SNOMED CT 0846277342 Resolved: History of traumatic brain injury / SNOMED CT 7576179649 Resolved: Hx of migraine headaches / SNOMED CT 173482531 Resolved: Inflammation of left sacroiliac joint / SNOMED CT 35955674 Resolved: Left elbow pain / SNOMED CT 291619679 Resolved: Obesity / SNOMED CT 0686052344 Resolved: Seborrheic keratosis, inflamed / SNOMED CT 8873316975 Resolved: Skin lesion / SNOMED CT 521300398 Resolved: Torticollis / SNOMED CT 528330781 Canceled: Diabetes mellitus, type II, insulin dependent / [facility] 7666831025 Canceled: Hyperlipidemia / [facility] 54533124. Histories Procedure History: Chest X-ray ([id number]) on 08/20/2019 at 64 Years. Comments: 09/02/2020 07:36 EDT Samantha Hui LPN, Jade No acute cardiopulmonary disease. Injection ([id number]) on 04/06/2019 at 64 Years. Comments: 04/07/2019 15:11 OSWALDO Torres LPN, Lindsey Botox injection. Injection ([id number]) on 03/30/2019 at 64 Years. Comments: 03/31/2019 09:55 OSWALDO - VIRI Roque Jamie caudal epidural steroid injection under fluoroscopic guidance Abdominal Ultrasound RUQ ([id number]) on 02/19/2019 at 64 Years. Comments: 02/19/2019 14:26 OSWALDO Soliz LPN, Candice Impression: 1. Normal gallbladder, no gallstones. 2. Hepatic steatosis. 3. The pancreas was obscured by overlying bowel gas. X-ray of lumbar spine and sacroiliac joints ([id number]) on 10/27/2018 at 63 Years. Comments: 10/27/2018 13:10 Janine Sebastian Mild sclerotic degenerative change as above with no acute bony abnormality identified. CT of abdomen and pelvis ([id number]) on 06/02/2018 at 63 Years. Comments: 06/03/2018 08:51 OSWALDO - VIRI Copeland Vanessa T No acute process. Nonobstructive bowel pattern. Absent left kidney. MRI of lumbar spine ([id number]) on 04/18/2018 at 63 Years. Comments: 04/21/2018 13:29 OSWALDO Kyle LPN, Ashley 1. Interval postsurgical changes of removal of the right transpedicular screw and elsi fixation hardware from L4 to S1. Left transpedicular screw and elsi fixation of L4-S1 with interbody spacer at L5-S1 remains in place. Laminectomy defects of L4-5. 2. Fluid collection in the operative bed along the right aspect of the L5 vertebral body level, likely postsurgical seroma. Sterility cannot be confirmed. Correlate clinically. No convincing evidence of pseudomeningocele. 3. Multilevel degenerative changes with spinal canal narrowing most severe at L2-3. No convincing evidence of cauda equina impingement. The degree of narrowing is identical to the prior exam in 2015. Multilevel neural foraminal narrowing most severe at L3-4. Further details as above. FOB - Fecal occult blood screening ([id number]) on 08/21/2017 at 62 Years. Comments: 12/17/2017 14:33 DAVID - VIRI Robles Boyd negative Tibia and fibula X-ray ([id number]) on 04/13/2017 at 62 Years. Comments: 04/18/2017 14:08 ARNAVT Samantha Saucedo LPN, Stephanie 1. mild dorsal oft tissue edema. no frature identified 2. osteopenia and large dorsal heel spur X-ray of right foot ([id number]) on 04/13/2017 at 62 Years. Comments: 04/18/2017 14:09 OSWALDO Saucedo LPN, Stephanie 1. no acute bony abnormality is seen in right foot 2. osteopenia arthritic change and heel spur Chest x-ray ([id number]) on 02/13/2016 at 61 Years. Comments: 02/20/2016 13:28 EDT - Janine Fine Low lung volumes with no active disease in the chest CT of lumbar spine ([id number]) on 01/30/2016 at 61 Years. Comments: 01/30/2016 16:56 EDT - VIRI Castaneda Lynne degenerative and postoperative change. No major disc herniation or significant component of spinal stenosis based on this study. Degenerative changes of posterior elements with osteophytic narrowing of several neural foramina Skeletal X-ray of pelvis and hip ([id number]) on 01/16/2016 at 60 Years. Comments: 01/18/2016 12:55 Yokasta Keller 1. no acute fracture of the pelvis or hips 2. mild bilateral hip osteoarthritis, greater on the right X-ray of thoracic spine ([id number]) on 12/26/2015 at 60 Years. Comments: 12/28/2015 19:36 Yokasta Keller mild degenerative change as above with no acute bony abnormality identified involving the throacic spine Lumbar radiculopathy ([id number]) on 11/16/2015 at 60 Years. Gastric biopsy ([id number]) on 10/28/2015 at 60 Years. Comments: 12/23/2015 16:30 Janine Sebastian 1. Mild chronic gastritis 2. Negative for acute inflammation, intestinal metaplasia, dysplasia and carcinoma. 3. H. Pylori immunoperoxidase stain negative Endoscopic biopsy of esophagus ([id number]) on 10/28/2015 at 60 Years. Comments: 12/23/2015 16:31 Janine Sebastian 1. Benign squamous and gastric type glandular mucosa with no specific abnormality. 2. Negative for instestinal metaplasia, dysplasia, and carcinoma Upper GI endoscopy ([id number]) on 10/28/2015 at 60 Years. Comments: 12/23/2015 16:33 Janine Sebastian Z-line irregular. Biopsied. Gastritis. Biopsied. Normal examined duodenum. Ultrasound scan of upper abdomen ([id number]) on 10/01/2015 at 60 Years. Comments: 12/23/2015 16:36 Janine Sebastian The pt's reported left-sided abdominal wall mass isnt visualized on ultraosund scanning. Plain X-ray lumbar spine normal ([id number]) on 10/01/2015 at 60 Years. Comments: 12/23/2015 16:38 Janine Sebastian 1. No acute fractures or subluxations. 2. Postsurgical changes with worsening degenerative changes. Abnormal brain MRI ([id number]) on 09/21/2015 at 60 Years. Comments: 12/23/2015 19:44 Janine Sebastian 1. No evidence of acute infarct. No acute intracranial hemorrhage. 2. Small focus of signal abnormality within the left aspect of the splenium of the corpus callosum.Associated susceptibility artifact suggests a small amount of old blood products. While nonspecific, the findings suggest either the sequela of remote trauma or ischemic change. 3. Gyrlform T1 hyperintesity within the left occipital lobe with mild associated enhancement shown on the postcontrast images. The findings could reflect a subacute to chronic infarct or old posttraumatic change. A follow up MRI the brain in 3 months is recommended to assess these indeterminate findings. Colonoscopy ([id number]) on 12/07/2013 at 58 Years. Comments: 04/21/2019 11:39 EDT - Corneal, JOINT MAKER MACHINE, Praveen impression - The examined portion of the ileum was normal - Diverticulosis in the sigmoid colon - The examinationwas otherwise normal on direct and retroflexion views History of back surgery ([id number]). Comments: 11/15/2016 16:55 DAVID Saucedo LPN, Stephanie lumbar vertebral fusion Dr Mueller Nephrectomy ([id number]). Comments: 11/15/2016 16:55 DAVID Saucedo LPN, Stephanie left APPENDECTOMY ([id number]).. Social History: Cigarrette Smoker? Other Tobacco Use: Alcohol: Recreational Drugs: . Physical Examination VS/Measurements: Vital Signs 05/20/2024 09:48 EDT Temperature 36.0 DegC LOW Temperature Route Temporal Heart Rate 62 bpm Respiratory Rate 16 br/min Systolic Blood Pressure 138 mmHg Diastolic Blood Pressure 78 mmHg BP Location # 1 Right Arm, Non-invasive BP Cuff Size Regular Mean Blood Pressure 97 mmHg Cuff Pulse Pressure 60 mmHg Oxygen Therapy Room Air SpO2 100 % , Weight 78.5 kg. General: Alert and oriented, No acute distress. Airway: Mallampati classification: II (soft palate, fauces, uvula visible). Mouth: Teeth ( Edentulous ), Elevated left tongue base. Neck: Supple, Full range of motion. Respiratory: Lungs are clear to auscultation. Cardiovascular: Normal rate, Regular rhythm, No murmur. Vascular Access: Peripheral: Gauge 22, Right arm. Anesthesiologist Assessment and Plan Problems: No previous anesthetic complications. ASA Classification: Class II. Anesthetic Plan: Anesthetic technique discussed: TIVA. Airway plan discussed: Oral endotracheal tube. Risks discussed: Serious complications, Aspiration. Informed consent: Signed by patient. Special techniques and precautions discussed: Not before 11h30 d/t light meal @ 5h30 this morning.. 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 Informed consent was obtained before the procedure FINDINGS: There was a small hiatal hernia. OPERATION: Surgical safety timeout was performed and a bite block was positioned in the patient's mouth. A GIFHQ 190 gastroscope was advanced through the oropharynx and into the esophagus. We were able to bypass the head and neck lesion without significant difficulty. The esophagus was normal we advanced into the stomach and aspirated a small amount of gastric fluid. We then advanced the obturator of a therapeutic size esophageal length overtube that had been backloaded onto the gastroscope without difficulty. We continued our diagnostic endoscopy by passing the scope through the distal stomach. We traversed the pylorus into the duodenum. There were no relevant duodenal findings. Scope was brought back in the stomach was inspected and a retroflexed position allowing inspection of the lesser curve and fundus. There were no findings. We then turned our attention to performing the gastrostomy. The stomach was maximally insufflated and an area of clear transillumination was identified off the left costal margin. This area had good one-to-one motion on finger palpation. At this location we prepped the skin in a standard fashion and performed a safe track method identifying a safe tract through the abdominal wall. An 8 mm skin incision was made. A guide sheath and needle were advanced through the skin incision. A wire was passed through the sheath, grasped with a snare, and brought out through the mouth. A 20 Nigerian gastrostomy tube was secured to the wire and using a standard Ponsky pull method the tube was pulled through the overtube and into position. The gastroscope followed the feeding tube into position. There was minimal self-limited bleeding from the gastrostomy site. The external bumper clamp and feeding adapter were applied under direct endoscopic visualization. The tube was lightly touching the gastric surface and the skin and spun freely even with the stomach desufflated. The endoscope was withdrawn bringing the overtube with it as a unit allowing us to inspect the proximal esophagus and pharynx for damage related to the placement of the tube. There was none. Antibiotic triple paste was placed around the external gastrostomy site, gauze dressings were placed over the top. The tube was taped to the patient and an abdominal binder was loosely positioned to further prevent inadvertent tube dislodgment. The tube was padded on the skin with gauze dressings to prevent erosion. The patient was awakened from anesthesia, transported to the recovery area in stable condition. I was present for the entire procedure. Electronic Signature on File Electronically Reviewed/Signed by: Tra Tavarez MD Author Signature Dt/Tm:05/22/2024 09:28 AM Division of Minimally Invasive Surgery EMP Discharge instructions * RAFAELA Kimble, Maday: MODIFY RAFAELA Kimble Abigail: MODIFY Event Display: Patient Discharge Instructions Authored Date: [id number] MADDY HENDERSON :1955 Visit Date:05/20/[address] [facility] For medical concerns, call: . Date of Admission:05/20/2024 Date of Discharge:05/20/2024 Physician:MD Daysi, Tra Guerrier Service:Surgery, Minimally Invasive Discharge Disposition: . Advance Directive:None Reason for Hospitalization Dysphagia Your Diagnoses Dysphagia My Health Patient Portal: [employer] makes it easy for you to manage your health information online. My [employer] is a free service that provides you instant, secure access to your medical information anytime, anywhere. Sign in or set up your account today at [facility] [email or web address] Thank you for allowing us to assist you with your healthcare needs. If you need additional community resources, [place] can help at [email or web address]://www.pa211.org. 211 can assist you in connecting with social programs based on your unique needs and locations. 211 is an anonymous search that can help you locate resources for: Food, Housing, Transportation, Goods, Education and Healthcare. Medications What How Much When Instructions Next Dose Unchanged acetaminophen-oxycodone (acetaminophen-oxycodone 325 mg-5 mg oral tablet) 1 tab(s) by mouth Every 6 hours as needed for as needed for pain 830pm Unchanged cyanocobalamin (Vitamin B12) Unchanged diabetic supplies (One Touch Ultra Blue Test Strips) See Instructions 2 times daily Unchanged diabetic supplies (One Touch Ultrasoft (28G) Lancets) See Instructions 2 times daily Unchanged famotidine (famotidine 40 mg oral tablet) 1 tab(s) by mouth Once daily Unchanged metFORMIN (metFORMIN 500 mg oral tablet) See instructions TAKE 1 TABLET BY MOUTH TWICE DAILY Unchanged pantoprazole (pantoprazole 40 mg oral delayed release tablet) 1 tab(s) by mouth Once daily Duration: 90 Days Unchanged topiramate (topiramate 100 mg oral tablet) See instructions TAKE TWO TABLETS BY MOUTH DAILY Unchanged traMADol (traMADol 50 mg oral tablet) 0.5 tab(s) by mouth Every 4 hours as needed for as needed for pain What How Much When Why Comments Stop Taking AlOH/ diphenhyd/ MgOH/ simeth topical (Magic (Maalox/ diphenhydrAMINE) Mouthwash) 5 Milliliter swish in mouth and spit Every 6 hours as needed for mouth sore pain | mouth sore pain Tongue lesion Stop Taking cyclobenzaprine (cyclobenzaprine 10 mg oral tablet) 1 tab(s) by mouth 2 times daily as needed for as needed for spasm Myofascial pain Left foot drop Left lumbar radiculopathy Stop Taking lidocaine topical (lidocaine topical 5% patch) 1 patch(es) topically Once daily History of lumbar spinal fusion Chronic left lumbar radiculopathy Scapulalgia Neuralgia of flank Duration: 7 Days remove patches after 12 hours Stop Taking methocarbamol (Robaxin 500 mg oral tablet) 1 tab(s) by mouth Every 8 hours Myofascial pain Duration: 30 Days Allergies Lyrica (Moderate)dizziness Ambien What to do next Instructions From Your Doctor PEG-(Percutaneous endoscopic gastrostomy feeding tube.) PEG tubes are inserted into the stomach through the stomach wall and skin using endoscopy to assist with placement of the tube. The feeding tube is used when a person is unable to take in enough nutrition orally (by mouth), or sometimes for other special reasons such as when the stomach needs to be decompressed for nausea, orfor special access in certain individuals for special testing or procedures. PEG Tubes are not difficultto use Keep the area clean and dry. Lightly clean around the tube 2-3 times per day for the first several days. A smallamount of bloody drainage is normal for the first several days. Perez may apply some absorbent gauze around the tube site to keep the area dry. This should be changed if it becomeswet or soiled. the skin should heal in 2- 3 weeks. do not apply any lotions or creams at the ins ertion site unless instructed to do so by your surgeon's team. Sometimes gastric secretions leak around the tubing. Keep the area clean and dry to avoid skin breakdown from the acidic gastic secretions. You may apply a barrier such as calmoseptine or desitinwith zinc to clean dry skin around the PEG insertion site to protect the skin from any gastric secretions that may escape around the tube. Do not apply any other lotions or creams at the site. There is a "bumper" just at the skin. turn the bumper daily to keep it from breaking down the skin. It can be loosened if it is too tight. There is a numberon the tubing that can identify at what level the tubing meets the skin. Note the number at the skin, to be sure the tubing has notmigrated. YOUR TUBE IS 3.5 cm AT THE SKIN The Otopharyngealteam ( ENT) will make arrangements for your supplemental feedings, and instructions. Home diet: Resume your usual diet as tolerated. Call our office with questions or concerns--[phone]-option 5. If you notice the following symptoms Contact the [facility] Careline at . If unable to contact your physician and you feel it is an emergency, go to the nearest Emergency Room or call [phone] Diet Instructions Activity Instructions Follow-Up Appointments Scheduled Follow-Up Appointments Date/Time:Provider/Resource: Jun 12:00 MD Nixon Rachel Location/Instructions:This appointment will take place on [facility] or by phone as arranged by your providers office. If you have questions please contact the office at [phone]. Date/Time:Provider/Resource: Aug 10:00 MD Segundo Neerav Location/Instructions:[facility], [address], [address], [address], [place] [address] Tests Pending None Procedures Performed egd, peg tube placement 05/20/2024 Special Instructions Common Emergency Awareness Tips Call 911 immediately if: experiencing any of the warning signs and symptoms of stroke: Ritu Jennings Balance: is there trouble with walking or coordination Eyes: is there double vision or visual loss Face: Smile, do both sides of face move equally Arm: Raise arms, do both arms move equally Speech: Is speech slurred or inappropriate Time: Time is critical, call 911 immediately Heart Attack Signs Chest discomfort: Most heart attacks involve discomfort in the center of the chest and lasts more than a few minutes, or goes away and comes back. It can feel like uncomfortable pressure, squeezing, fullness or pain. Discomfort in upper body: Symptoms can include pain or discomfort in one or both arms, back, neck, jaw or stomach. Shortness of breath: With or without discomfort. Other signs: Breaking out in a cold sweat, nausea, or lightheaded. Remember, MINUTES DO MATTER. If you experience any of these heart attack warning signs, call [phone]--1 to get immediate medical attention! Education Materials How To Give Medicine Through a Feeding Tube, Adult A feeding tube is a soft, flexible tube used to give medicine, water, and liquid food. A person mayneed a feeding tube if they have trouble swallowing or cannot have food or medicine by mouth. The tube is put right into the stomach. The following information gives steps on how to give medicine through your feeding tube. Supplies needed: 60 mL syringes for each medicine to be given. Medicine or medicines. Pill crusher tender, if the medicine is a tablet or pill. Small, clean cup for each medicine to be given. Germ-free (sterile) or purified water. How to prepare the medicine 1. Wash your hands with soap and water for at least 20 seconds. 2. Get each medicine ready to go into the tube: If the medicine is a liquid: Connect a syringe to the medicine bottle using an adapter or use a medicine straw attached to a syringe. If you cannot connect the syringe to the medicine bottle, put the right amount of medicine in a clean medicine cup. Mix it with water as told by your health care provider. Put the tip of the syringe into the mixture. Gently pull back the plunger to pull the medicine into the syringe. If the medicine is a tablet or pill: Use a pill-crushing tool to make it into a fine powder. In a medicine cup, mix the powder with 30 mL of water, or the amount of water you were told to use. Put the tip of a syringe into the dggvtrsg-kso-[id number] mixture. Gently pull back the plunger to pull the mixture into the syringe. If the medicine is a capsule that contains dry pellets and you are told to open it: Open the capsule. Empty the pellets into a cup with 30 mL of water, or the amount of water you were told to use. Put the tip of a syringe into the cnsyyogz-ggy-gmsrq mixture. Gently pull back the plunger to pull the mixture into the syringe. If the medicine is a capsule that contains liquid (gelcap), use it in one of these ways: Poke a small hole in the gelcap and squeeze its liquid into a cup with 30 mL of warm water, or the amount of water you were told to use. Or, dissolve the unopened gelcap in 30 mL of warm water, or the amount of water you were told to use. Put the tip of a syringe into the itkuhggx-pcn-ykovj mixture. Gently pull back the plunger to pull the mixture into the syringe. 3. Hold the syringe with the tip up. Tap the side of the syringe to move air bubbles to the tip. Push gently on the plunger to push the air out of the tip of the syringe. Do not push out the liquid. 4. If the syringe has a moat at the tip, check for medicine in the moat. The moat is the open space inside the feeding tube connector. Use a piece of gauze or paper towel to clean out any medicine in there. Have all of your medicines ready and in syringes before getting your feeding tube ready. How to give medicine through the feeding tube Prep yourself 1. If the medicine cannot be given along with a tube feeding, stop the feeding and wait for as long asyou are told. This is called hold time. You may need to wait up to 2 hours, if the medicine needs to be taken on an empty stomach. 2. Wash your hands with soap and water for at least 20 seconds. 3. Have all supplies ready and near you. Each medicine should be in a syringe with the air removed. You will need a syringe and water to flush your feeding tube between each medicine. 4. Prop yourself up with pillows or sit up at a 3045 degree angle or higher. Stay upright while giving your medicines and for at least 3060 minutes after. This can help prevent reflux or nausea. Deliver medicine 1. Take the cap off the end of your feeding tube. If you have a button instead of a tube, put the adapter into it. 2. Open the clamp on your feeding tube. 3. Flush and check placement of your feeding tube as told. 4. Clamp your feeding tube. 5. Connect a syringe filled with medicine to your feeding tube. If your feeding tube has a medicine port, connect the syringe to the medicine port of the feeding tube. 6. Open the clamp on your feeding tube. 7. Slowly push the plunger on the syringe to push the medicine into your feeding tube. 8. Clamp your feeding tube. Disconnect the syringe from your feeding tube 1. Disconnect the syringe from your feeding tube. 2. Flush your feeding tube as told. 3. Repeat the process if you have more than one medicine to take. 4. When done with the last flush, clamp your feeding tube. You must close or clamp your tube to: Keep it from leaking. Keep air from getting into your stomach. 5. Put the cap back on the end of your feeding tube. Keep a cap on your tube to keep germs from getting in it. 6. Wash your hands with soap and water for at least 20 seconds. If a tube feeding needs to be started after the medicine, but the medicine cannot be given with thefeeding, wait 3060 minutes after giving medicine. Then start the feeding. Follow these instructions at home: Prevent medicine errors Do not use or crush the following types of medicines because they can give you too much medicine atone time: Extended-release medicines. Long-acting medicines. Delayed-release medicines. Give the medicine only as told. Do not mix medicines in 1 syringe. If giving only 1 dose of medicine, flush your feeding tube with water after giving the medicine. If giving more than 1 medicine, give each medicine separately. Flush the tube between each medicineand after the last dose of medicine. Use a clean syringe for each medicine. Do not mix medicines with formula. Use water. Use liquid medicines when possible. Talk with your health care provider and pharmacist about this. General instructions Use, clean, and reuse feeding tube equipment only as told by your health care provider. Follow your health care provider's instructions on how and when to vent or open your feeding tube. Contact a health care provider if: You are having trouble giving medicines through your feeding tube. You are unsure what medicines to give or the dose you should give. You are unsure of how to time your medicines with your feedings. Your feeding tube gets clogged, comes out, or does not work. You have any questions or concerns about your feeding tube or your medicines. This information is not intended to replace advice given to you by your health care provider. Make sure you discuss any questions you have with your health care provider. Document Revised: 05/28/2023 Document Reviewed: 05/02/2023 [employer] Patient Education 2022 [employer] How to Flush a Feeding Tube, Adult A feeding tube is a soft, flexible tube used to give medicine, water, and liquid food. A person mayneed a feeding tube if they have trouble swallowing or cannot have food or medicine by mouth. The tube is put right into the stomach. The following information will go over how to flush your feeding tube. Supplies needed: 60 mL syringe that connects to your feeding tube. A towel. Germ-free (sterile) or purified water. How to flush a feeding tube 1. Wash your hands with soap and water for at least 20 seconds. 2. Have all supplies ready and near you. 3. Pull 3050 mL of water into the syringe, or the amount you are told to use. 4. Remove the cap from the end of your feeding tube. If you have a button instead of a tube, put the adapter into it. 5. Put a towel under your feeding tube to catch any leaks. 6. Connect the syringe to your feeding tube. 7. Open the clamp on your feeding tube. 8. Slowly push the plunger of the syringe to push the water into your feeding tube. If you cannot pushthe water in, the tip of the tube may be against your stomach. This can block fluid flow. To fix this: Lie on your left side. Try pushing the water in again. If you still cannot push the water in, do not force it. This could tear the tube. 9. Clamp your feeding tube. You must close or clamp your tube to: Keep it from leaking. Keep air from getting into your stomach. 10. Disconnect the syringe from your feeding tube. 11. Put the cap back on the end of your feeding tube. Keep a cap on your tube to keep germs from getting in it. 12. Throw away used supplies. 13. Wash your hands with soap and water for at least 20 seconds. Follow these instructions at home: Sterile or purified water Use sterile water if your body has trouble fighting infections (weak immune system). Use sterile or purified water if you are not sure how clean your tap water is. Do not use fresh water found in lakes, woods, reservoirs, or aquifers. Purify tap water by boiling it for at least 1 minute. Keep a lid over the water while it boils. Letthe water cool to room temperature before using it. General instructions Use, clean, and reuse feeding tube equipment only as told by your health care provider. Do not use a syringe that is smaller than 60 mL. To help keep the tube from clogging, flush it as told by your health care provider. This may include flushing: Before giving medicine. Between medicines. After giving the last medicine. Before starting a feeding. After a feeding. A few times a day, as told, if the tube is not being used. Follow your health care provider's instructions on how and when to vent or open your feeding tube. Contact a health care provider if: You cannot flush your tube. You have any questions or concerns about your feeding tube or how and when to flush it. This information is not intended to replace advice given to you by your health care provider. Make sure you discuss any questions you have with your health care provider. Document Revised: 05/28/2023 Document Reviewed: 05/02/2023 [employer] Patient Education 2022 [employer] Upper Endoscopy, Adult, Care After After the procedure, it is common to have a sore throat. It is also common to have: Mild stomach pain or discomfort. Bloating. Nausea. Follow these instructions at home: The instructions below may help you care for yourself at home. Your health care provider may give you more instructions. If you have questions, ask your health care provider. If you were given a sedative during the procedure, it can affect you for several hours. Do not drive or operate machinery until your health care provider says that it is safe. If you will be going home right after the procedure, plan to have a responsible adult: Take you home from the hospital or clinic. You will not be allowed to drive. Care for you for the time you are told. Follow instructions from your health care provider about what you may eat and drink. Return to your normal activities as told by your health care provider. Ask your health care provider what activities are safe for you. Take kkeh-qgr-mqbahxt and prescription medicines only as told by your health care provider. Contact a health care provider if you: Have a sore throat that lasts longer than one day. Have trouble swallowing. Have a fever. Get help right away if you: Vomit blood or your vomit looks like coffee grounds. Have bloody, black, or tarry stools. Have a very bad sore throat or you cannot swallow. Have difficulty breathing or very bad pain in your chest or abdomen. These symptoms may be an emergency. Get help right away. Call 911. Do not wait to see if the symptoms will go away. Do not drive yourself to the hospital. Summary After the procedure, it is common to have a sore throat, mild stomach discomfort, bloating, and nausea. If you were given a sedative during the procedure, it can affect you for several hours. Do not drive until your health care provider says that it is safe. Follow instructions from your health care provider about what you may eat and drink. Return to your normal activities as told by your health care provider. This information is not intended to replace advice given to you by your health care provider. Make sure you discuss any questions you have with your health care provider. Document Revised: 02/13/2023 Document Reviewed: 02/13/2023 [employer] Patient Education 2022 [employer] Upper Endoscopy, Adult Upper endoscopy is a procedure to look inside the upper GI (gastrointestinal) tract. The upper GI tract is made up of: The esophagus. This is the part of the body that moves food from your mouth to your stomach. The stomach. The duodenum. This is the first part of your small intestine. This procedure is also called esophagogastroduodenoscopy (EGD) or gastroscopy. In this procedure, your health care provider passes a thin, flexible tube (endoscope) through your mouth and down your esophagus into your stomach and into your duodenum. A small camera is attached to the end of the tube. Images from the camera appear on a monitor in the exam room. During this procedure, your health care provider may also remove a small piece of tissue to be sent to a lab and examined under a microscope (biopsy). Your health care provider may do an upper endoscopy to diagnose cancers of the upper GI tract. You may also have this procedure to find the cause of other conditions, such as: Stomach pain. Heartburn. Pain or problems when swallowing. Nausea and vomiting. Stomach bleeding. Stomach ulcers. Tell a health care provider about: Any allergies you have. All medicines you are taking, including vitamins, herbs, eye drops, creams, and wfed-ufz-jdncvos medicines. Any problems you or family members have had with anesthetic medicines. Any bleeding problems you have. Any surgeries you have had. Any medical conditions you have. Whether you are or may be . What are the risks? Your healthcare provider will talk with you about risks. These may include: Infection. Bleeding. Allergic reactions to medicines. A tear or hole (perforation) in the esophagus, stomach, or duodenum. What happens before the procedure? When to stop eating and drinking Follow instructions from your health care provider about what you may eat and drink. These may include: 8 hours before your procedure Stop eating most foods. Do not eat meat, fried foods, or fatty foods. Eat only light foods, such as toast or crackers. All liquids are okay except energy drinks and alcohol. 6 hours before your procedure Stop eating. Drink only clear liquids, such as water, clear fruit juice, black coffee, plain tea, and sports drinks. Do not drink energy drinks or alcohol. 2 hours before your procedure Stop drinking all liquids. You may be allowed to take medicines with small sips of water. If you do not follow your health care provider's instructions, your procedure may be delayed or canceled. Medicines Ask your health care provider about: Changing or stopping your regular medicines. This is especially important if you are taking diabetes medicines or blood thinners. Taking medicines such as aspirin and ibuprofen. These medicines can thin your blood. Do not take these medicines unless your health care provider tells you to take them. Taking lyyn-hyd-qjeraqb medicines, vitamins, herbs, and supplements. General instructions If you will be going home right after the procedure, plan to have a responsible adult: Take you home from the hospital or clinic. You will not be allowed to drive. Care for you for the time you are told. What happens during the procedure? An IV will be inserted into one of your veins. You may be given one or more of the following: A medicine to help you relax (sedative). A medicine to numb the throat (local anesthetic). You will lie on your left side on an exam table. Your health care provider will pass the endoscope through your mouth and down your esophagus. Your health care provider will use the scope to check the inside of your esophagus, stomach, and duodenum. Biopsies may be taken. The endoscope will be removed. The procedure may vary among health care providers and hospitals. What happens after the procedure? Your blood pressure, heart rate, breathing rate, and blood oxygen level will be monitored until youleave the hospital or clinic. When your throat is no longer numb, you may be given some fluids to drink. If you were given a sedative during the procedure, it can affect you for several hours. Do not drive or operate machinery until your health care provider says that it is safe. It is up to you to get the results of your procedure. Ask your health care provider, or the department that is doing the procedure, when your results will be ready. Contact a health care provider if you: Have a sore throat that lasts longer than 1 day. Have a fever. Get help right away if you: Vomit blood or your vomit looks like coffee grounds. Have bloody, black, or tarry stools. Have a very bad sore throat or you cannot swallow. Have difficulty breathing or very bad pain in your chest or abdomen. These symptoms may be an emergency. Get help right away. Call 911. Do not wait to see if the symptoms will go away. Do not drive yourself to the hospital. Summary Upper endoscopy is a procedure to look inside the upper GI tract. During the procedure, an IV will be inserted into one of your veins. You may be given a medicine tohelp you relax. The endoscope will be passed through your mouth and down your esophagus. Follow instructions from your health care provider about what you can eat and drink. This information is not intended to replace advice given to you by your health care provider. Make sure you discuss any questions you have with your health care provider. Document Revised: 02/13/2023 Document Reviewed: 02/13/2023 [employer] Patient Education 2022 [employer] Acute Urinary Retention, Male Acute urinary retention is when a person cannot pee (urinate) at all, or can only pee a little. This can come on all of a sudden. If it is not treated, it can lead to kidney problems or other seriousproblems. What are the causes? A problem with the tube that drains the bladder (urethra). Problems with the nerves in the bladder. Tumors. Certain medicines. An infection. Having trouble pooping (constipation). What increases the risk? Older men are more at risk because their prostate gland may become larger as they age. Other conditions also can increase risk. These include: Diseases, such as multiple sclerosis. Injury to the spinal cord. Diabetes. A condition that affects the way the brain works, such as dementia. Holding back urine due to trauma or because you do not want to use the bathroom. What are the signs or symptoms? Trouble peeing. Pain in the lower belly. How is this treated? Treatment for this condition may include: Medicines. Placing a thin, germ-free tube (catheter) into the bladder to drain pee out of the body. Therapy to treat mental health conditions. Treatment for conditions that may cause this. If needed, you may be treated in the hospital for kidney problems or to manage other problems. Follow these instructions at home: Medicines Take kbam-svy-rfdwysf and prescription medicines only as told by your doctor. Ask your doctor what medicines you should stay away from. If you were given an antibiotic medicine, take it as told by your doctor. Do not stop taking it, even if you start to feel better. General instructions Do not smoke or use any products that contain nicotine or tobacco. If you need help quitting, ask your doctor. Drink enough fluid to keep your pee pale yellow. If you were sent home with a tube that drains the bladder, take care of it as told by your doctor. Watch for changes in your symptoms. Tell your doctor about them. If told, keep track of changes in your blood pressure at home. Tell your doctor about them. Keep all follow-up visits. Contact a doctor if: You have spasms in your bladder that you cannot stop. You leak pee when you have spasms. Get help right away if: You have chills or a fever. You have blood in your pee. You have a tube that drains pee from the bladder and these things happen: The tube stops draining pee. The tube falls out. Summary Acute urinary retention is when you cannot pee at all or you pee too little. If this condition is not treated, it can lead to kidney problems or other serious problems. If you were sent home with a tube (catheter) that drains the bladder, take care of it as told by your doctor. Watch for changes in your symptoms. Tell your doctor about them. This information is not intended to replace advice given to you by your health care provider. Make sure you discuss any questions you have with your health care provider. Document Revised: 07/26/2021 Document Reviewed: 07/26/2021 [employer] Patient Education 2022 [employer]. General Anesthesia, Adult, Care After The following information offers guidance on how to care for yourself after your procedure. Your health care provider may also give you more specific instructions. If you have problems or questions, contact your health care provider. What can I expect after the procedure? After the procedure, it is common for people to: Have pain or discomfort at the IV site. Have nausea or vomiting. Have a sore throat or hoarseness. Have trouble concentrating. Feel cold or chills. Feel weak, sleepy, or tired (fatigue). Have soreness and body aches. These can affect parts of the body that were not involved in surgery. Follow these instructions at home: For the time period you were told by your health care provider: Rest. Do not participate in activities where you could fall or become injured. Do not drive or use machinery. Do not drink alcohol. Do not take sleeping pills or medicines that cause drowsiness. Do not make important decisions or sign legal documents. Do not take care of children on your own. General instructions Drink enough fluid to keep your urine pale yellow. If you have sleep apnea, surgery and certain medicines can increase your risk for breathing problems. Follow instructions from your health care provider about wearing your sleep device: Anytime you are sleeping, including during daytime naps. While taking prescription pain medicines, sleeping medicines, or medicines that make you drowsy. Return to your normal activities as told by your health care provider. Ask your health care provider what activities are safe for you. Take owfs-xfb-hlkuety and prescription medicines only as told by your health care provider. Do not use any products that contain nicotine or tobacco. These products include cigarettes, chewing tobacco, and vaping devices, such as e-cigarettes. These can delay incision healing after surgery.If you need help quitting, ask your health care provider. Contact a health care provider if: You have nausea or vomiting that does not get better with medicine. You vomit every time you eat or drink. You have pain that does not get better with medicine. You cannot urinate or have bloody urine. You develop a skin rash. You have a fever. Get help right away if: You have trouble breathing. You have chest pain. You vomit blood. These symptoms may be an emergency. Get help right away. Call 911. Do not wait to see if the symptoms will go away. Do not drive yourself to the hospital. Summary After the procedure, it is common to have a sore throat, hoarseness, nausea, vomiting, or to feel weak, sleepy, or fatigue. For the time period you were told by your health care provider, do not drive or use machinery. Get help right away if you have difficulty breathing, have chest pain, or vomit blood. These symptoms may be an emergency. This information is not intended to replace advice given to you by your health care provider. Make sure you discuss any questions you have with your health care provider. Document Revised: 02/01/2023 Document Reviewed: 02/01/2023 [employer] Patient Education 2022 [employer] How to Care for a Feeding Tube, Adult A feeding tube is a soft, flexible tube used to give medicine, water, and liquid food. A person mayneed a feeding tube if they have trouble swallowing or cannot have food or medicine by mouth. The tube is put right into the stomach. The following information offers guidance on how to care for the skin around your feeding tube (tube site). Supplies needed: Clean washcloth, gauze pads, or soft paper towels. Cotton swabs. Skin barrier ointment or cream, such as petroleum jelly. Soap and water, or sterile saline. Pre-cut foam pads or gauze for around the tube. Medical tape. Anchoring device. This is not always used. Syringe. Cleaning brush or toothbrush. This is only used for cleanings. How to care for the tube site 1. Have all supplies ready and near you. 2. Wash your hands with soap and water for at least 20 seconds. 3. Remove the foam pad or gauze under the tube stabilizing disc (bumper), if you have one. You may have to do this a few times a day right after your feeding tube is put in because the gauzeor pad will get soiled or wet. As the site heals, you may not have to replace the pads or gauze as often. But, you still need to clean and check the area every day. 4. Gently turn the bumper so it does not stick to your skin. 5. Check your skin around the tube site for redness, rash, swelling, drainage, or extra tissue growth. 6. Check the number on the tube (guide gopal) where it meets your skin. It should not change. If it does, your feeding tube might be coming out. 7. Moisten gauze pads and cotton swabs with water and soap, or saline. Take the moistenedcotton swab and wipe under the bumper, right near the opening of the abdomen (stoma). Take the moistened gauze pad and clean the skin around the tube site. 8. If you used soap, rinse with water. 9. Use a washcloth, dry gauze pad, or soft paper towel to dry your skin and stoma site. Dry the tube and bumper, too. 10. If your skin is red, put a barrier cream or ointment on a cotton swab. Apply it around the site, under the bumper. This will help the site heal. 11. Put a new pre-cut foam pad or gauze around the tube, under the bumper. If the site is healed and there is no drainage, you can leave off the foam pads or gauze. 12. Put tape around the edges of the foam pad or gauze to keep it in place. 13. Use tape or an anchoring device to hold the loose end of the tube against your skin. This helps keep you from pulling on it. Change where you put the tape to avoid damaging the skin. 14. Throw away used supplies. 15. Wash your hand with soap and water for at least 20 seconds. General tips Use, clean, and reuse feeding tube equipment only as told by your health care provider. Do not use antibiotic ointment or cream on your feeding tube site unless you are told to. If the end of your feeding tube has a moat, clean it once a day or as told. The moat is the open space inside the feeding tube connector. Follow the military nurse's instructions on how to clean the moat. The instructions may include: 1. Remove the cap from the end of your feeding tube. 2. Cover the hole in the middle of the tube port with a cleaning brush. 3. Hold the end of the tube over a deep bowl, or wrap it with paper towels or a washcloth to soak up the water. 4. Use a syringe of water to flush out the moat. 5. Use the cleaning brush or toothbrush to clean the tube cap and around the inside of the moat. This brush can only be used for tube cleanings. 6. Dry the end of your feeding tube and the cap with gauze or paper towel. 7. Put the cap back on your feeding tube. Contact a health care provider if: You notice a change in the guide vizcarra on your feeding tube where it meets your skin. Changes couldmean your feeding tube has moved or is coming out. You see any of these on your skin around the tube site: Redness. Rash. Swelling. Drainage. Extra tissue growth. You have questions or concerns about your feeding tube or the tube site. This information is not intended to replace advice given to you by your health care provider. Make sure you discuss any questions you have with your health care provider. Document Revised: 06/12/2023 Document Reviewed: 05/02/2023 [employer] Patient Education 2022 [employer] Note * Veena Alfaro: PATRICIA Yarbrough MD, Charline J: MODIFY Event Display: Brief Operative Note Authored Date: [id number] "This note was written by a medical student. Preliminary report status should be regarded as NOT reviewed by an attending physician. Finalized report status indicates that the attending has reviewed the note and agrees with the plan." BRIEF OPERATIVE NOTE Name: MADDY HENDERSON Patient Number: [id number] : [id number] Date of Service: 05/20/2024 Pre-op Diagnosis: dysphagia, tongue SCC Post-op Diagnosis: same Procedure: upper endoscopy, PEG tube placement, @ 3.5cm at the skin Surgeon: Daysi Assistants: Abdi Yarbrough Anesthesia: GETA Estimated Blood Loss: X _ Less than 50ml Drains: none Fluids: per anesthesia Urinary Output: per anesthesia Condition: stable to PACU Complications: none apparent Specimen: _ X None Findings: _ Check one _ Pharmacologic VTE prophylaxis not indicated Standard VTE prophylactic regimen ordered x Pharmacologic VTE prophylaxis contraindicated due to increased risk of intraoperative and / or postoperative bleeding Check one _ No antibiotics indicated x Standard prophylactic antibiotic regimen ordered _ Antibiotic regimen changed due to concern for infection Electronic Signature on File Electronically Reviewed/Signed by: Veena Alfaro Author Signature Dt/Tm:05/20/2024 01:55 PM Medical Student Electronically Reviewed/Signed by: MD Esau Mendoza Signature Dt/Tm: 05/20/2024 08:24PM Division of Minimally Invasive Surgery CB Patient Care team information Care Team Personnel Name: DO Richards William Price Position: Referring Member Role: Primary Care Provider Address: Address: [address], [facility] Care Team Related Persons Name: LUH HENDERSON Address: home [address] [place] [address] [phone] Name: TIERA GEORGE Address: home [address] [place] [address] [phone] Name: TIERA GEORGE Address: home [address] [place] [address]
--- OUTSIDE RECORDS SUMMARY | 2024-06-01 05:39 | External Medical Summary | Summary of Care ---
Author Name Unknown Organization [facility] Address [address] [facility] [place] [address] Phone [phone] Care Team Providers Care Superintendent [employer] Name Role Phone Hai Gifford MD Primary Care Provider [phone] Reason for Visit * Reason Onset Date Comments No Show 05/26/2024 [facility] No Show Auto mation Encounter Details Date Type Department Care Team (Late st Contact Info) Description 05/26/2024 Telephone Otolaryngology [facility] [address] [place] [address] Judy Pizano DO [address] [place] [id number] No Show ([place] No Show Automation) Allergies Active Allergy Reactions Criticality Noted Date Comments Zolpidem Tartrate Neuro complications (Please comment) 12/12/2011 Called 911 after taking due to neuro sx (convulsing per ) Pregabalin 09/16/2019 documented as of this encounter (statuses as of 05/26/2024) Medications Medication Sig Dispensed Refills Start Date End Date Status TYLENOL 325 MG PO TABS takes Tylenol PM at bedtime 0 12/01/2009 Active METFORMIN HCL 500 MG PO TABSIndications:D M type 2, goal A1c below 7 TAKE 1 TABLET TWICE DAILY WITH MEALS 60 Tab 5 01/10/2015 Active Vitamin B 12 250 MCG Oral Lozenge Take by mouth. Acti ve Hydrocortisone Acetate 25 MG Rectal Suppository (Anusol-HC)Indica tions:Thrombosed hemorrhoids Administer into the rectum 2 times a day in the morning and at bedtime as needed for Hemorrhoids. Up to 2 weeks. 24 Suppository 1 01/17/2022 Active Additional Information Patient not taking.Reported on 04/02/2022 Topiramate 100 MG Oral Tablet (topAMAX)Indicati ons:Migraine TAKE 1 TABLET BY MOUTH TWICE DAILY 180 Tablet 3 05/15/2022 Active Docusate Sodium 100 MG Oral Capsule (Colace) Take by mouth 100 mg in the morning AND 100 mg before bedtime. Active Topiramate 50 MG Oral Tablet (Topamax)Indicati ons:Other migraine without status migrainosus, not intractable Take 1 tab by mouth daily for migraine headache prevention 90 Tablet 3 09/13/2022 Active traMADol HCl 50 MG Oral Tablet (Ultram)Indicatio ns:Chronic low back pain without sciatica, unspecified back pain laterality Take 1 Tablet (50 mg) by mouth in the morning and 1 Tablet (50 mg) before bedtime. 60 Tablet 11/02/2022 Active Pantoprazole Sodium 40 MG Oral Tablet Delayed Release (Protonix) TAKE ONE TABLET BY MOUTH IN THE MORNING 90 Tablet 1 01/19/2023 Active documented as of this encounter (statuses as of 05/26/2024) Active Problems Problem Noted Date Diagnosed Date Chronic kidney disease, stage 3a 04/30/2022 Overview: Per CKD protocol Traumatic brain injury with loss of consciousnes s 03/02/2021 Left foot drop 03/02/2021 Osteoarthritis of hip 07/13/2014 Overview: right ICD-10 update of inactive term Spinal stenosis, unspecified region other than c ervical 06/19/2013 Fusion of spine of lumbosacral region 03/20/2013 Conversion disorder 01/10/2010 Migraine 12/01/2009 Dyslipidemia, goal LDL below 100 Type 2 diabetes mellitus wit h hemoglobin A1c goal of less than 7.0% Overview: ICD-10 update of inactive term Blepharospasm documented as of this encounter (statuses as of 05/26/2024) Resolved Problems Problem Noted Date Diagnosed Date Resolved Date Inflammation of sacroiliac joint 08/12/2014 03/02/2021 Fatigue 08/06/2014 09/26/2022 Obesity, Class I, BMI 30.0-3 4.9 (see actual BMI) 07/13/2014 09/26/2022 Overview: bmi= 31.47 07/13/14 Injury of left foot 07/06/2014 09/26/20 22 Pain in limb 07/06/2014 09/26/2022 Left ankle injury 07/06/2014 09/26/2022 Pain of left calf 07/06/2014 09/26/2022 Open wound of ankle 07/06/2014 09/26/20 22 Need for shingles vaccine 12/14/2013 Screening for colon cancer 10/13/2013 1 11/26/2021 Special screening for malign ant neoplasm of prostate 10/13/2013 09/26/2022 Obesity, Class I, BMI 30.0-3 4.9 (see actual BMI) 09/04/2013 09/26/2022 Overview: bmi= 32.10 09/04/13 Fusion of spine 06/19/2013 09/26/2022 Ingrown nail 07/01/2012 09/26/2022 Pain in foot 07/01/2012 09/26/2022 Screening for cardiovascular condition 10/31/2011 09/26/2022 Screen for colon cancer 10/31/2011 11/0 07/2022 Spasm of muscle 10/31/2011 09/26/2022 Other psychological or physi rashawn stress, not elsewhere classified 01/10/2010 09/26/2022 Convulsions 01/09/2010 03/02/2021 Brain injury 10/29/2006 03/02/2021 Overview: fall 10 feet, with TBI Ruptured disk 09/26/2022 Overview: lumbar left L5- Vimal 3rd DM type 2, not at goal 12/14 Spasmodic torticollis 2021 documented as of this encounter (statuses as of 05/26/2024) Immunizations Name Administration Dates Next Due COVID-19 mRNA, LNP-s, No Pre serve, 2-Dose Series (Pfizer) 01/02/2022,02/22/2021,01/22/2021 Pneumococcal Conjugate Vacc, 13 Valent (Prevnar) 04/20/2019 Pneumococcal Polysaccharide PPV23 (Pneumovax) 04/02/2022,10/13/2013 Seasonal Influenza, PF, 6 M & above, IM , (FluLaval or Fluzone) 08/20/2019,11/26/2018,07/30/2016 Seasonal Influenza, Quadriva lent Hd (Fluzone Hd) 09/13/2022,10/02/2021 Seasonal Influenza, Split, I IV3, With Preserve, Inj 09/14/2014,09/08/2013,10/27/2012,09/18 TD - Tetanus/Diptheria (ADULT) 07/13/2014 TDAP (age 10 and older)(Boostrix) 07/13/2014 documented as of this encounter Social History Tobacco Use Types Packs/Day Years Used Date Smoking Tobacco: Never Smokeless Tobacco: Never Alcohol Use Standard Drinks/Week Comments Not Currently 1.7 (1 standard drin k = 0.6 oz pure alcohol) 1-2 beers every couple weeks Utilities Answer Date Recorded Do you have trouble paying y our heating, water, or electric bill? (Adult - for ages 18 years and over) Not on file 05/05/2024 Is your family able to pay t he heat, water, or electric bill? (Household - for ages 0-17 years) Not on file 05/05/2024 Does your family have access to good internet? (Household - for ages 0-17 years) Not on file 05/05/2024 Social Connections Answer Date Recorded How often do you feel lonely or isolated from those around you? (Adult - for ages 18 years and over) Not on file 05/05/2024 Sex and Gender Information Value Date Recorded Sex Assigned at Not on file Gender Identity Not on file Sexual Orientation Not on file Job Start Date Occupation Industry Not on file Not on file Not on file documented as of this encounter Miscellaneous Notes * Telephone Encounter - Esmer Avendano Show - 05/26/2024 1:30 PM EDT Dear Jose Garcia, Looks like you missed an appointment with JUDY PIZANO on 05/20/2024 at 10:00 AM. If you haven't already rescheduled, you have a couple of options: Reschedule in [employer]/scheduling Call us at [phone] Can't make a future appointment? Cancel and let someone else have your spot! It's easy to do via [employer] or by calling us. Thanks for trusting [facility] with your care. We hope to see you back in our office soon. Sincerely, JUDY PIZANO Electronically signed by [facility] [place], No Show at 05/26/2024 1:31 PM EDT documented in this encounter Plan of Treatment Scheduled Procedures Name Priority Associated Diagnoses Date/Ti me COLONOSCOPY FLEXIBLE PROXIMA L DIAGNOSTIC Recall Special screening for malignant neoplasms, colon Health Maintenance Due Date Last Done Comments Hepatitis C Screening 1971 Cologuard 1998 Fecal Occult Blood Test 1998 Sigmoidoscopy 1998 Zoster Vaccines (1 of 2) 2003 CKD PHOS USE SMARTSET 84010 01/10/2011 01/10/2010, 0 01/09/2010 Depression Screening 10/13/2014 10/13/2013 Diabetic Foot Exam 03/31/2022 03/31/2021, 0 08/06/2014, 10/13/2013, Additional history exists GFR 03/14/2023 09/13/2022, 03/18, 10/02/2021, Additional history exists HbA1c 03/14/2023 09/13/2022, 03/18, 10/02/2021, Additional history exists Albumin/Creatinine Ratio 04/02/2023 022, 03/02/2021, 09/04/2013 Diabetic Eye Exam 07/02/2023 07/02/2022, , 12/26/2021, Additional history exists COVID-19 Vaccine ( season) 2023 01/02/2022, 02/22/2021, 01/22/2021 CKD HGB USE SMARTSET 59533 09/13/202309/13, 09/03/2013, 01/14/2010, Additional history exists Colonoscopy 12/07/2023 12/07/2013, 12/07/2013 Colorectal Cancer Screening 12/07/2023 DTaP,Tdap,and Td Vaccines (3 - Td or Tdap) 07/13/2024 07/13/2014, 07/13/2014 Influenza Vaccine (FLU shot) (#1) 2024 09/13/2022, 10/02/2021, 08/20/2019, Additional history exists Lipid Panel 04/02/2027 04/02/2022, 02/16, 07/13/2014, Additional history exists Pneumococcal Vaccine: 65+ Years Completed 04/02/2022, 04/20/2019, 10/13/2013 HPV (Gardasil) Vaccine Aged Out No lo nger eligible based on patient's age to complete this topic Hepatitis B Vaccine Aged Out No longe r eligible based on patient's age to complete this topic MENINGOCOCCAL (MENACTRA/MENVEO) Aged Out No longer eligible based on patient's age to complete this topic documented as of this encounter Medical Devices Not on filedocumented as of this encounter Advance Directives * Full Code (Latest Code Status on File) Date Activated Date Inactivated Comments 01/09/2010 3:12 PM 01/14/2010 3:58 PM This order r eflects the patients wishes and were consensually agreed upon. Question Answer Comments Discussion of Advance Directives occurred with: Patient Does the patient have a Living Will? No Does the patient have Health Care Power of Attor sona? No * Full Code Date Activated Date Inactivated Comments 01/09/2010 12:41 PM 01/09/2010 1:28 PM This order reflects the patients wishes and were consensually agreed upon. Question Answer Comments Discussion of Advance Directives occurred with: Patient Does the patient have a Living Will? No Does the patient have Health Care Power of Attor sona? No Care Teams Superintendent [employer] Relationship Specialty Start Date End Date Hai Gifford MD [address] [place] [address] PCP - General Family Medicine 09/11/22 documented as of this encounter
--- OUTSIDE RECORDS SUMMARY | 2024-06-01 05:39 | External Medical Summary | Continuity of Care Document ---
Author Name Unknown Organization [facility] [address] [place] [address] [place] [phone] Care Team Providers Care Leak Inspector Name Role Phone Sid Richards Primary Care Physician [phone] Encounter [facility] [id number] Date(s): 05/15/24 - 05/15/24 [facility] [address] [facility] Otolaryngology - Head and Neck Surgery [address], [address], [address] [place] [address] [phone] Encounter Diagnosis Squamous cell carcinoma of base of tongue(Discharge Diagnosis) - 05/15/24 Discharge Disposition: Home or Self Care Attending Physician: MD Shira, Nekelleyv Referring Physician: DO Richards William Price Allergies, Adverse Reactions, Alerts Substance Criticality Severity Reaction Reaction Severity Status Ambien Active Lyrica Unable to assess criticality Moderate dizziness Active Immunizations Given and Recorded Vaccine Date Status [...] for pain Start Date: 05/15/24 Status: Ordered cyclobenzaprine 10 mg oral tablet Start: 02/17/24 2:44:00 PM EDT, 1 tab, PO, bid, Disp# 30 tab, Refills: 0, PRN: as needed for spasm, Pharmacy: [id number] Start Date: 02/17/24 Status: Ordered famotidine 40 mg oral tablet Start: 05/15/24 11:09:00 AM EDT, 1 tab, PO, Daily Start Date: 05/15/24 Status: Ordered lidocaine topical 5% patch Start: 02/19/24 10:21:00 AM EDT, 1 patch, topical, Daily, Disp# 7 patch, Refills: 1, remove patches after 12 hours, Pharmacy: [id number] Start Date: 02/19/24 Stop Date: 03/04/24 Status: Ordered Magic (Maalox/diphenhydrAMINE) Mouthwash Start: 04/29/24 3:16:00 PM EDT, 5 mL, swish + spit, q6h, Disp# 90 mL, Refills: 1, Note to Pharmacy: Formulation includes 2 parts generic Maalox Advanced and 1 part diphenhydrAMINE, PRN: mouth sore pain | mouth sore pain, Pharmacy: [facility] Start Date: 04/29/24 Status: Ordered metFORMIN 500 mg oral tablet Start: 04/12/22 9:30:00 AM EDT, See Instructions, Disp# 180 tab, Refills: 3, TAKE 1 TABLET BY MOUTH TWICE DAILY, Pharmacy: [id number] Start Date: 04/12/22 [...] Daily, Disp# 90 tab, Refills: 1, Pharmacy: [id number] Start Date: 10/16/18 Stop Date: 04/14/19 Status: Ordered Robaxin 500 mg oral tablet Start: 01/28/24 8:31:00 AM EDT, 1 tab, PO, q8h, Disp# 90 tab, Refills: 0, Pharmacy: [id number] Start Date: 01/28/24 Stop Date: 02/27/24 Status: Ordered topiramate 100 mg oral tablet See Instructions, Disp# 120 tab, Refills: 0, TAKE TWO TABLETS BY MOUTH DAILY, Pharmacy: [id number] Start Date: 03/16/21 Status: Ordered traMADol 50 mg oral tablet Start: 01/29/24 10:06:00 AM EDT, 0.5 tab, PO, q4h, PRN: as needed for pain Start Date: 01/29/24 Status: Ordered Vitamin B12 Start: 03/17/21 11:11:00 AM EDT Start Date: 03/17/21 Status: Ordered Mental Status 05/15/24 Barriers to Learning one year None evide nt Mandatory Health Literacy Documentation Yes Health Literacy Communication Barriers N ever Primary Language Faroese Problem List Condition Confirmation Course Effective Dates [...] Diagnosis Diagnosis Type Effective Dates Health Status Cl inical Service Informant Squamous cell carcinoma of base of tongue Discharge Diagnosis 05/15/24 Procedures Procedure Date Related Diagnosis Body Site [...] Most recent to oldest [Reference Range]: 1 Patient Weight 80.7 kg (05/15/24 11:13 AM) Temperature [36.5-37.9 DegC] 36.4 DegC *LOW* (05/15/24 11:13 AM) Heart Rate 54 bpm (05/15/24 11:13 AM) Blood Pressure 130/72mmHg (05/15/24 11:13 AM) Cuff Pulse Pressure 58 mmHg (05/15/24 11:13 AM) Social History Social History Type Response Smoking Status Never smoked cigaret letha Sex Male Patient Care team information Care Team Personnel Name: DO Richards William Price Position: Referring Member Role: Primary Care Provider Address: Address: [address] [address] [place] Care Team Related Persons Name: LUH HENDERSON Address: home [address] [facility] [place] [id number] Name: TIERA GEORGE Address: home [address] [place] [phone] Name: TIERA GEORGE Address: home [address] [place] [address]"
[2024-06-01] MEDS: LR 15ML/HR IV SCH (06:00)
[2024-06-01] MEDS ORDERED: NALOXONE HCL 0.4 MG/1 ML VIAL/CARP IV PRN (06:44)
[2024-06-01] MEDS ORDERED: LABETALOL HCL IV 5 MG/ML 20ML IV PRN (06:44)
[2024-06-01] MEDS ORDERED: FLUMAZENIL 0.1 MG/1 ML 10 ML VIAL IV PRN (06:44)
[2024-06-01] MEDS ORDERED: ATROPINE SULFATE 0.1 MG/ML 10ML SYR IV PRN (06:44)
[2024-06-01] MEDS ORDERED: fentaNYL citrate PF 100 MCG/2 ML VIAL IV PRN (06:44)
[2024-06-01] MEDS ORDERED: ePHEDrine sulfate 50 MG/ML AMP IV PRN (06:44)
[2024-06-01] MEDS ORDERED: PROMETHAZINE HCL 6.25 MG in SODIUM CHLORIDE 0.9% 50 ML IV PRN (06:44)
[2024-06-01] MEDS ORDERED: SUCCINYLCHOLINE CHLORIDE 20 MG/ML 10 ML VIAL IV ONE (06:59)
[2024-06-01] MEDS ORDERED: CISATRACURIUM BESYLATE IV SOLN 2 MG/ML 10 ML VIAL IV ONE (06:59)
[2024-06-01] MEDS ORDERED: PROPOFOL IV EMULSION 10 MG/ML 20 ML VIAL IV ONE ×2 (06:59→10:06)
[2024-06-01] MEDS ORDERED: fentaNYL citrate PF 100 MCG/2 ML VIAL ONE ×3 (07:00→08:23)
[2024-06-01] MEDS ORDERED: MIDAZOLAM HCL 1 MG/ML 2ML VIAL ONE (07:00)
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
[2024-06-01] MEDS ORDERED: NEOSTIGMINE METHYLSULFATE 1 MG/ML 10ML VIAL ONE (10:09)
[2024-06-01] MEDS ORDERED: GLYCOPYRROLATE 0.2 MG/ML VIAL ONE (10:10)
--- NOTE | 2024-06-01 10:31 | Procedure Note ---
Procedure Note: Bronchoscopy Procedure Procedure: Fiberoptic bronchoscopy Electromagnetic navigational bronchoscopy with fluoroscopic guidance Endobronchial ultrasound evaluation during bronchoscopy Endobronchial ultrasound with transbronchial needle aspiration of lymph nodes, 2 station Electromagnetic navigational bronchoscopy with transbronchial biopsies under fluoroscopic guidance Provider: Daniel Fierro MD Consent: Signed by patient and timeout verified prior to procedure. Indication: Abnormal CT scan with multiple pulmonary nodules in a patient with head and neck cancer Procedure: Patient was brought to the OR suite. Consent was verified. Appropriate radiographic studies had been reviewed prior to the procedure. G eneral anesthesia was initiated by the anesthesia team and the patient was intubated with an 8.5 endotracheal tube. After initiation of general anesthesia, the fiberoptic scope was advanced through the existing endotracheal tube via the adapter. The tube was sounded. It was withdrawn to approximately 5 or 6 cm above the cesar and secured in place. A systematic inspection of the airways was then conducted. The right tracheobronchial tree was normal in anatomic configuration with normal mucosa. Left tracheobronchial tree also demonstrated a normal anatomic configuration with normal mucosa. No endobronchial lesions were identified. The fiberoptic scope was then removed. The robotic adapter was then secured to the endotracheal tube and secured using the flexible arm attached to the bed. The patient had previously been placed on a bed with an electromagnetic navigation field and a tilt table in place. The robot was advanced to the head of the bed and the robotic arm was docked to the endotracheal tube via the robotic adapter. Robot arm was withdrawn in normal fashion and the scope attached with the antibuckling device. The robotic scope was then maneuvered into the endotracheal tube where controller registration took place. Once that was confirmed the scope was advanced to the main cesar and verified in good position. Navigational registration was then conducted wi thout difficulty. Once registration was completed, the robotic bronchoscope was used to navigate to left lower lobe pulmonary nodule. Once the scope was approximately 15 to 20 mm from the lesion, a fluoroscopic tomographic spin was conducted with reconstruction of images. The lesion was able to be verified on the tomogram. It was marked and additional navigation was conducted under direct fluoroscopic guidance with augmented fluoroscopy. Once the scope was appropriately angled towards the lesion, under direct fluoroscopic guidance, biopsy forceps were advanced into the lesion. Total of 6 biopsies were taken with touch preps performed and rapid onsite cytologic evaluation conducted. Rapid onsite pathologic evaluation did not demonstrate malignant cells c/o the scope was negative radiated to the second marked lesion in the right middle lobe. Beginning tomographic spin was conducted and lesion identified and marked. Biopsies using forceps were taken. Scope was then directed to the right upper lobe lesion with similar process conducted. Finally a lesion in the left lower lobe was also navigated to and biopsied under fluoroscopic guidance. The robot was then undocked from the patient and removed. The endobronchial ultrasound was then advanced through the adapter via the existing endotracheal tube. A survey of mediastinal lymph node stations was conducted including the 4R, 4L, 7, 10/11 R, and 10/11 L stations. 5 to 6 mm lymph nodes were identified in the level 4R and level 7 stations which were biopsied using a 21-gauge needle. The scope was then withdrawn to the tip of the endotracheal tube and hemostasis was confirmed. Scope was removed from the airway. The patient was turned over to anesthesia for extubation and returned to the PACU having tolerated the procedure well without complication. EBL: Less than 10 ml Impression: 1. Normal inspection bronchoscopy. 2. Successful electromagnetic robotic navigation to 6 to 8 mm left lower lobe, right lower lobe, right middle lobe, and right upper lobe nodule status post biopsies. Await pathology 3. Mildly enlarged adenopathy in the 4R and 7 station status post EBUS TBNA. Await pathology [facility] [place] Procedure Codes (Charges) Pulmonary/Thoracic Procedure 1: Pulmonary and Thoracic: 17155 Navigational Bronchoscopy Procedure 2: Pulmonary and Thoracic: 52828 Bronchoscopy w/ transbronchial lung bx Procedure 3: Pulmonary and Thoracic: 76508 Bronchoscopy w/ transbronchial lung bx add'l lobe Procedure 4: Pulmonary and Thoracic: 95245 Bronchoscopy, w/EBUS 1 or 2 mediastinal
[2024-06-01] MEDS: NovoLIN-R INSULIN PER UNIT CHARGE IV STA (10:49)
[2024-06-01] MEDS: NovoLIN-R INSULIN PER UNIT CHARGE ONE (10:54)
[2024-06-01] MEDS: ONDANSETRON INJ 2 MG/ML 2 ML VIAL IV PRN (10:59)
--- NOTE | 2024-06-01 11:08 | XRay Report ---
XR chest 1V portable CLINICAL HISTORY: Post Bronchoscopy COMPARISON STUDY: Chest CT May 14, 2024. FINDINGS: There is no pneumothorax status post bronchoscopy. Right pleural density favors extrapleura l fat. Right infrahilar opacity is present. There is minimal left basilar opacity. No evidence for pu lmonary edema. Numerous pulmonary nodules are better depicted on prior chest CT. IMPRESSION: 1. No pneumothorax status post bronchoscopy. 2. Right infrahilar airspace opacity. 3. Numerous pulmonary nodules, better depicted on prior chest CT. ACT 112: Negative or not required by law. Electronically signed by: Kyle Hodge M.D. 06/01/2024 11:06 AM
[2024-06-01] MEDS: LORazepam 2 MG/1 ML VIAL IV STA (11:17)
[2024-06-01] MEDS: LORazepam 2 MG/1 ML VIAL ONE (11:22)
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
--- NOTE | 2024-06-01 11:38 | CT Scan Report ---
CT head/brain wo con CLINICAL HISTORY: acute seizure Technique: Contiguous axial CT images of the head were acquired from the base of the skull to the marty ty without intravenous contrast administration. Images were viewed in brain, subdural and [facility]. Automated dose lowering techniques and/or adjustment according to patient size were utilized for this exam. Comparison: Comparison is made to CT head 03/06/2016 Findings: Areas of decreased attenuation are present in the periventricular and subcortical white matter bilate rally consistent with small vessel ischemic disease. Generalized cerebral atrophy with commensurate e nlargement of the ventricles, sulci, and cisterns is also present. There is no acute intracranial hem orrhage or evidence of acute territorial infarction. No shift of the midline structures, mass effect, or extra-axial abnormalities are shown. Atherosclerotic calcifications are present in the intracran ial segments of the internal carotid arteries. Imaged portions of the paranasal sinuses and mastoid air cells are clear. The orbits appear normal. There are no acute fractures of the calvaria or scalp swelling. Impression: No acute intracranial hemorrhage, no evidence of acute territorial infarction or other acute intracra nial disease process. ACT 112: Negative or not required by law. Electronically signed by: Yung Mata M.D. 06/01/2024 11:37 AM
[2024-06-01 12:08] LABS: Basophils # (auto) 0.05 K/uL (0.00-0.20); Basophils % (auto) 0.5 %; Eosinophils # (auto) 0.11 K/uL (0.00-0.50); Eosinophils % (auto) 1.1 %; Hematocrit (blood only) 42.1 % (42.0-52.0); Immature Granulocytes # (auto) 0.04 K/uL (0.01-0.20); Immature Granulocytes % (auto) 0.4 %; Lymphocytes # (auto) 1.54 K/uL (1.20-3.40); Lymphocytes % (auto) 16.1 %; Mean Corpuscular Hemoglobin 29.6 pg (25.0-34.0); Mean Corpuscular Hgb Conc 33.3 g/dL (32.0-36.0); Mean Platelet Volume 9.4 fL (9.4-12.4); Monocytes # (auto) 0.65 K/uL (0.11-0.59); Monocytes % (auto) 6.8 %; Neutrophils # (auto) 7.19 K/uL (1.40-6.50); Neutrophils % (auto) 75.1 %; Platelet Count 185 K/uL (130-400); RDW Coefficient of Variation 12.2 % (11.5-14.5); RDW Standard Deviation 39.7 fL (36.4-46.3); Red Blood Count 4.73 M/uL (4.70-6.10); White Blood Count 9.58 K/ul (4.8-10.8)
[2024-06-01] MEDS: levETIRAcetam 500 MG/5 ML VIAL IV STA (12:09)
--- NOTE | 2024-06-01 12:21 | Anesthesiology Progress Note ---
Date of Service June 01, 2024 Anesthesia Post Procedure Vital Signs Vital Signs: Temp Pulse Resp BP Pulse Ox O2 Del Method O2 Flow Rate 06/01/24 11:15 61 20 100 Oxymask 06/01/24 11:05 65 22 88 L Oxymask 06/01/24 10:55 52 L 20 133/43 L 98 Oxymask 06/01/24 10:45 53 L 17 106/75 100 Oxymask 06/01/24 10:38 36.3 C L 51 L 14 111/62 99 Oxymask 06/01/24 05:51 36.6 C 59 L 18 125/72 97 Room Air Pain Intensity Left Tongue: Pain Intensity: 7 Transfer of Care Handoff Completed per policy Notes Mental Status: see notes below Patient Amnestic to Procedure: Yes Nausea / Vomiting: adequately controlled Pain: adequately controlled Airway Patency, RR, SpO2: stable & adequate BP & HR: stable & adequate Hydration State: stable & adequate Anesthetic Complications: no major complications apparent Notes: Pt had mild seizures in PACU,Treated with ativan by Dr Fierro. Seizures abated. Pt taken to CT scan of head,negative. Pt to be discharged to PCU.
[2024-06-01 12:36] LABS: Albumin Globulin Ratio 1.5 (0.9-2); Albumin Level 3.7 gm/dl (3.4-5.0); BUN Creatinine Ratio 17.1 (10-20); Bilirubin,Total 0.4 mg/dl (0.2-1.0); Calcium 8.7 mg/dl (8.6-10.3); Creatinine Clr Calc Pharmacy 50.8 ml/min; Est GFR (African American) 64.2 ml/min; Est GFR (Non-African American) 55.4 ml/min; Globulin 2.5 gm/dl (2.5-4.0); Magnesium 1.8 mg/dl (1.7-2.4); Potassium 4.4 mmol/L (3.5-5.1); Total Protein 6.2 gm/dl (6.0-8.3)
[2024-06-01 12:48] LABS: Partial Thromboplastin Ratio 1.1; Partial Thromboplastin Time 29 Seconds (21-31); Prothrombin Time 11.2 Seconds (9.0-12.0)
[2024-06-01] MEDS ORDERED: CARBOHYDRATES FOR HYPOGLYCEMIA PO PRN (13:16)
[2024-06-01] MEDS ORDERED: GLUCOSE 40% GEL 15 GM TUBE PO PRN (13:16)
[2024-06-01] MEDS ORDERED: DEXTROSE 50% 50 ML SYRINGE IV PRN (13:16)
[2024-06-01] MEDS ORDERED: GLUCOSE 10 TAB/TUBE PO PRN (13:16)
[2024-06-01] MEDS ORDERED: GLUCAGON FOR INJ 1 MG VIAL SQ PRN (13:16)
[2024-06-01] MEDS: FAMOTIDINE 40 MG TABLET PO SCH (13:38)
[2024-06-01] MEDS: TOPIRAMATE 100 MG TAB PO SCH (13:38)
[2024-06-01] MEDS: PANTOprazole 40 MG TAB PO SCH (13:38)
--- NOTE | 2024-06-01 13:57 | Communication Note ---
Date of Service: June 01, 2024 Notified by anesthesia that the patient experienced a tonic-clonic seizure in PACU after extubated. He was given Ativan. Patient had been graciously evalu ated by the hide cleaner on-call prior to my arrival. He did ministered Ativan. Neurology's been consulted. Stat CT of the head demonstrated no acute abnormality. The patient has been admitted by the hospitalist. I discussed the case with them at bedside as well as with the PACU nurse. Family has been updated. Patient apparently stopped taking his Topamax prior to the procedure and the seizure may have been precipitated by lack of medication. Given his workup for metastatic malignancy, would recommend MRI of the brain with contrast. Will defer to neurology as to whether or not EEG or additional antiepileptics are indicated. The patient appears to be doing well from a respiratory standpoint. Will continue to follow for pulmonary issues. Appreciate hospitalist assistance. Feel free to reach out to us with questions or concerns Coding Level of Care Code None
[2024-06-01] MEDS: LACTATED RINGER'S 1,000 ML IV SCH (14:41)
[2024-06-01] MEDS: INSULIN ASPART PER UNIT CHARGE SC SCH (16:40)
[2024-06-01 17:56] LABS: Base Excess VBG -2.2 mEq/L; HCO3 VBG 23 mmol/L; Oxygen Saturation VBG < 60.0 %; PCO2 VBG 41 mmHg (38-50); PO2 VBG 30 mmHg; pH VBG 7.36 (7.36-7.41)
[2024-06-01] MEDS: levETIRAcetam IV 500 MG in SODIUM CHLOR 0.9% MINI-B 100 ML IV SCH (20:00)
[2024-06-01] MEDS: metFORMIN HCL 500 MG TAB PO SCH (21:11)
[2024-06-01] MEDS: ERYTHROMYCIN OP OINT 5 MG/GM 3.5 GM TUBE OPL SCH (21:49)
[2024-06-01] MEDS: GADOBUTROL 65ML VIAL IV ONE (23:02)
--- NOTE | 2024-06-02 02:59 | Magnetic Resonance Report ---
Exam(s): MRI HEAD IV Amt: 7.5cc gadavist EXAM: MR Head With Intravenous Contrast CLINICAL HISTORY: Reason for exam: seizure, Hx squamous cell cancer tongue. TECHNIQUE: Magnetic resonance images of the head/brain with intravenous contrast in multiple planes. CONTRAST: Patient received 7.5cc gadavist of IV contrast COMPARISON: Comparison made to prior head CT from June 01, 2024. FINDINGS: Brain: Moderate nonspecific white matter changes. The flow voids of the base of the brain are intact. No mass. No hemorrhage. No evidence of mesial temporal sclerosis, heterotopic pina matter or cortical dysplasia. No evidence of abnormal enhancement. The dural venous sinuses are patent. Ventricles: Moderate ventriculomegaly. Bones/joints: Unremarkable. No acute fracture. Sinuses: Chronic right ethmoid sinusitis. No acute sinusitis. Mastoid air cells: There is a small moderate fluid in the left mastoid air cells. No mastoid effusion. Orbits: Unremarkable as visualized. IMPRESSION: No evidence of acute intracranial pathology. Electronically signed by: Jaclyn Lawton MD 06/02/24 02:58 AM
[2024-06-02] MEDS: ACETAMINOPHEN 1,000 MG/100 ML VIAL IV STA ×2 (04:09→05:49)
[2024-06-02] MEDS: CYANOCOBALAMIN (B-12) 100 MCG TABLET PO SCH (08:27)
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
--- NOTE | 2024-06-02 14:48 | Discharge Summary ---
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 Post bronchoscopy his glucose was elevated glucose BSG 248 and he was given 5 units insulin. He was then given ondansetron. Around 11am he had a 15 minute seizure terminated with lorazepam 2mg IV. BSG 182 during the seizure. Unable to get much history from the patient as he is lethargic from being post ictal and having lorazepam when seen. He reports not taking his Topamax this morning and able to follow one step commands. Discharge Data Allergies Allergy/AdvReac Type Severity Reaction Status Date / Time zolpidem AdvReac Intermediate Hallucinati Verified 06/01/24 05:49 ons pregabalin [From Lyrica] AdvReac Mild Anxiety Verified 06/01/24 05:49 Consultations 06/01/24 13:16 Consult Neurology Routine Procedures Performed Operation Date: 06/01/24 07:15 Actual Procedures p Robotic Navigational Bronchoscopy,Transbronchial Biopsies under Fluoroscopic Guidance (Not Applicable) - Daniel Fierro MD s Endobronchial Ultrasound with Transbrocial Needle Aspiration(Not Applicable) - Daniel Fierro MD Ordered Studies 06/01/24 07:15 FL bronchoscopy Routine 06/01/24 11:23 CT head/brain wo con Stat 06/01/24 15:16 MRI Brain [MR brain seizure wo/w con] Urgent Hospital Course (1) Tonic-clonic seizure: History of seizure disorder but controlled for many years on Topamax per last neurology visit Missed Topamax morning of bronchoscopy - unclear if he missed any further doses CT head WNL Brain MRI ordered due to history of squamous cell cancer of his tongue 15 minute tonic clonic seizure 06/01 @ 11am terminated by 2mg lorazepam IV Discussed with Dr Rojas and will start Keppra 500mg IV BID Continue his usual Topamax once more awake Consult neurology (2) PEG (percutaneous endoscopic gastrostomy) status: Consult dietary (3) History of traumatic brain injury: (4) Gastro-esophageal reflux disease without esophagitis: Continue pantoprazole and famotidine Plan VTE Prophylaxis - deferred due to biopsy with bronchoscopy Diet - NPO until more awake Disposition - admit to PCU Discharge Plan Discharge Items Patient Disposition: Home - Self-Care Reason For Visit: Pulmonary Nodules Discharge Diagnosis: 1. Pulmonary nodules with biopsy by Dr Suman Fierro 2. Seizure Activity: As commented below Activity Comment: take it easy - nothing strenuous - for next 48 hours Driving/Machine Use: NO DRIVING unless cleared by neurology Non-emergency contact: Primary Care Provider, Neurologist and Machine Tank Operator Call non-emergency contact if: you have any medication questions and your symptoms worsen Follow-up/Referrals: Sid Richards DO [Primary Care Provider] - Monet Payne CRNP [Nurse Practitioner] - 06/05/24 11:00 am (dr. richards did not have any appointments available) Eusebio Rojas MD [Physician] - (3-4 weeks - recheck of seizure disorder ) Diet: Carb Consistent or DM2 Diet Texture: Easy to Chew Addtl Attending Provider Instructions: 1. May experience low-grade fevers up to 100.5 in the next 24 hours. Tylenol 500 mg every 4 hours orally can be used to manage the symptom. 2. May experience cough with some blood-tinged phlegm. This should decrease over the next 12 to 24 hours. Return to the emergency room if coughing up mouthfuls of blood. 3. Return to the emergency room for increasing chest pain, fevers greater than 101.5, or shortness of breath. 4. Dr. Fierro will contact you once pathology results are available, typically within 72 hours. 5. Seizure disorder - please take the following - * levetiracetam 500mg twice daily every day; first dose TONIGHT; this is your new seizure medication * LOWER your topiramate to 50mg twice daily (you previously were on 100mg twice daily) 6. Again NO DRIVING, NO taking a tub bath alone, NO swimming in a swimming pool alone. Follow-up - see [facility]rology in 3-4 weeks for recheck of seizure disorder Return to [facility] if - * you have fever over 101.5 degrees * you have worsening shortness of breath * you have chest pains * you have additional seizures * any other concerns Pending Studies at Discharge: Yes Stand-Alone Forms: Anesthesia/Sedation, Adult, [facility] Medications and DC Order Prescriptions: New levetiracetam [Keppra] 500 mg tablet 500 mg PO BID Qty: 60 2RF Rx Instructions: for seizure prevention Continued oxycodone-acetaminophen [Percocet] 5-325 mg tablet 1 tab PO Q4H PRN (Reason: Pain) Patient Comments: q 4-6 hrs prn pantoprazole 40 mg tablet,delayed release (DR/EC) 40 mg PO QAM 90 Days Qty: 90 3RF metformin 500 mg tablet 500 mg PO BID Qty: 180 3RF cyanocobalamin (vitamin B-12) [Vitamin B-12] 100 mcg Tablet 100 mcg PO DAILY ibuprofen 200 mg Tablet 800 mg PO Q6H PRN (Reason: Pain) famotidine 40 mg tablet 40 mg PO QAM Changed topiramate 50 mg tablet 50 mg PO BID Qty: 60 2RF Rx Instructions: note the lower dose Discharge Orders: Discharge Order (Routine); Ordered 06/02/24 Ordered By: Alexander Chen/Other Patient Handouts: Levetiracetam Oral Tablet, How Seizures Affect the Body, Treating Epilepsy: Medicines, DVT Post Op Prevention Admission Data Admit Date/Time: 06/01/24 11:41 Attending Provider: Alexander Deleon Admit Provider: Alexander Mehta Primary Care Provider: Sid Richards Other Providers: Eusebio Rojas; [facility] Coding Diagnoses Tonic-clonic seizure G40.409 PEG (percutaneous endoscopic gastrostomy) status Z93.1 History of traumatic brain injury Z87.820 Gastro-esophageal reflux disease without esophagitis K21.9
== END 2024-06-02 15:33 | disposition home or self-care (01) | DRG 42 ==
LOC: ASU 05:34 → 2E 11:41 → SUATTDRO 11:41 → INTOOBSV 11:41

== ENCOUNTER 2024-07-08 15:45 | Observation (INO) ==
--- NOTE | 2024-07-08 15:53 | ED Triage Note ---
Date of Service July 08, 2024 Provider in Triage Author: Angelina Banda History of Present Illness This patient was briefly evaluated while in triage. An abbreviated physical exam was performed. This patient is a 69-year-old Male who presents to the ED for evaluation sent from Dr. John's office feeling SOB, chills, bringing up mucus-since cancer dx several months ago, but is getting worse. receiving radiation for oral cancer Physical Exam GENERAL: 69yom, older-appearing than stated age ENT: OP patent, edentulous, drooling CARDIOVASCULAR: RRR RESPIRATORY: CTA ABDOMEN: BS x 4. Nontender to palpation. Initial orders for labs and / or imaging were placed and patient was placed in the waiting area until a bed is available. Please see further documentation for the full ED course.
--- NOTE | 2024-07-08 16:10 | XRay Report ---
XR chest 1V portable CLINICAL HISTORY: Dyspnea TECHNIQUE: Single frontal radiograph of the chest was obtained. Comparison: Comparison is made to chest radiograph 06/01/2024 FINDINGS: No lines and tubes are seen. Calcified aortic knob is seen. The lungs are clear. No evidence of pleur al effusion or pneumothorax. IMPRESSION: No acute abnormalities and in particular no radiographic evidence of pneumonia. ACT 112: Negative or not required by law. Electronically signed by: Yung Mata M.D. 07/08/2024 4:08 PM
[2024-07-08 16:32] LABS: Basophils # (auto) 0.07 K/uL (0.00-0.20); Basophils % (auto) 0.8 %; Eosinophils # (auto) 0.16 K/uL (0.00-0.50); Eosinophils % (auto) 1.9 %; Hematocrit (blood only) 39.2 % (42.0-52.0); Hemoglobin 13.1 g/dl (14.0-18.0); Immature Granulocytes # (auto) 0.04 K/uL (0.01-0.20); Immature Granulocytes % (auto) 0.5 %; Lymphocytes # (auto) 1.78 K/uL (1.20-3.40); Lymphocytes % (auto) 21.5 %; Mean Corpuscular Hemoglobin 29.5 pg (25.0-34.0); Mean Corpuscular Hgb Conc 33.4 g/dL (32.0-36.0); Mean Corpuscular Volume 88.3 fL (80.0-100.0); Mean Platelet Volume 9.6 fL (9.4-12.4); Monocytes # (auto) 0.72 K/uL (0.11-0.59); Monocytes % (auto) 8.7 %; Neutrophils % (auto) 66.6 %; Platelet Count 289 K/uL (130-400); RDW Coefficient of Variation 12.2 % (11.5-14.5); RDW Standard Deviation 39.4 fL (36.4-46.3); Red Blood Count 4.44 M/uL (4.70-6.10); White Blood Count 8.27 K/ul (4.8-10.8)
--- NOTE | 2024-07-08 16:38 | Emergency Department Note ---
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 IMPRESSION: 1. No acute intracranial hemorrhage, evidence of acute territorial infarction, or other acute intracranial disease process. 2. No occlusion, hemodynamically significant stenosis, or dissection in the major cervical arteries. 3. No occlusion, hemodynamically significant stenosis, aneurysm, dissection, or arteriovenous malformation in the major intracranial arteries. Assessment of stenosis of the internal carotid arteries is based on NASCET criteria. ACT 112: Negative or not required by law. Electronically signed by: Yung Mata M.D. 07/08/2024 4:54 PM Discharge Plan Visit Data Chief Complaint: Shortness of Breath/Dyspnea Stated Complaint: SOB ED Provider: Leif Vazquez Discharge Problem: Stroke-like symptoms Patient Disposition: Admitted As Inpatient Discharge Instructions Interventions: ED Discharge Assessment Last Done: 07/08/24 20:20
[2024-07-08] MEDS: OPTIRAY 320 125ml IV ONE (16:40)
[2024-07-08 16:48] LABS: Albumin Globulin Ratio 1.2 (0.9-2); Albumin Level 4.1 gm/dl (3.4-5.0); BUN Creatinine Ratio 23.2 (10-20); Bilirubin,Total 0.6 mg/dl (0.2-1.0); Calcium 9.5 mg/dl (8.6-10.3); Est GFR (Non-African American) 80.2 ml/min; Globulin 3.4 gm/dl (2.5-4.0); Potassium 4.2 mmol/L (3.5-5.1); Total Protein 7.5 gm/dl (6.0-8.3)
[2024-07-08 16:54] LABS: Troponin I High Sensitivity 3.8 pg/ml (0-20)
--- NOTE | 2024-07-08 16:56 | CT Scan Report ---
CT angio neck with con, CT head/brain wo con, CT angio head w con CLINICAL HISTORY: neuro deficit, acute stroke suspected TECHNIQUE: Contiguous axial CT images of the head were acquired from the base of the skull to the marty ty without intravenous contrast administration. CT angiography of the head and neck was performed f ollowing intravenous administration of iodinated contrast. Coronal and sagittal MIPS were obtained fr om the axial data set and were submitted for review. Automated dose lowering techniques and/or adjus tment according to patient size were utilized for this examination. All measurements were calculated based on NASCET criteria. CT DOSE: 1300.44 mGy.cm Comparison: None available at the time of this dictation. FINDINGS: CT head: Areas of decreased attenuation are present in the periventricular and subcortical white sandra er bilaterally consistent with small vessel ischemic disease. Generalized cerebral atrophy with comme nsurate enlargement of the ventricles, sulci, and cisterns is also present. There is no acute intracr anial hemorrhage or evidence of acute territorial infarction. No shift of the midline structures, mas s effect, or extra-axial abnormalities are shown. Atherosclerotic calcifications are present in the intracranial segments of the internal carotid arteries. Innumerable pulmonary nodules are partially seen. CTA Neck: A 3 vessel aortic arch is shown. There is no significant atherosclerotic plaque in the aor tic arch or the origins of the innominate, left common carotid, and left subclavian arteries. The co mmon carotid, external carotid, cervical segments of the internal carotid arteries, and the cervical segments of the vertebral arteries are patent without hemodynamically significant stenosis. The right vertebral artery is dominant. CTA Head: The anterior and posterior cerebral circulations are patent. No hemodynamically significan t stenosis, aneurysm, dissection, or arteriovenous malformation is shown. 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 IMPRESSION: 1. No acute intracranial hemorrhage, evidence of acute territorial infarction, or other acute intrac ranial disease process. 2. No occlusion, hemodynamically significant stenosis, or dissection in the major cervical arteries. 3. No occlusion, hemodynamically significant stenosis, aneurysm, dissection, or arteriovenous malfor mation in the major intracranial arteries. Assessment of stenosis of the internal carotid arteries is based on NASCET criteria. ACT 112: Negative or not required by law. Electronically signed by: Yung Mata M.D. 07/08/2024 4:54 PM
[2024-07-08 16:59] LABS: Partial Thromboplastin Ratio 1.1; Partial Thromboplastin Time 29 Seconds (21-31); Prothrombin Time 11.2 Seconds (9.0-12.0)
[2024-07-08 18:07] LABS: Magnesium 1.9 mg/dl (1.7-2.4)
[2024-07-08 18:11] LABS: Appearance Urine Cloudy (Clear); Bacteria Urine Automated None Seen (None Seen); Bilirubin Urine Negative (Negative); Blood Urine Negative (Negative); Cast Urine Automated 0-2 /lpf (0-2); Color Urine Yellow; Epithelial Cell Urine Auto 0-2 /hpf (0-2); Glucose Urine UA Negative (Negative); Ketones Urine Trace (Negative); Leukocyte Esterase Urine Negative (Negative); Nitrite Urine Negative (Negative); Protein Urine Negative (Negative); RBC Urine Automated 0-2 /hpf (0-2); Specific Gravity Urine 1.044 (1.000-1.030); Urobilinogen Urine Negative (Negative); WBC Urine Automated 0-5 /hpf (0-5)
[2024-07-08 18:14] LABS: Troponin I High Sensitivity 3.5 pg/ml (0-20)
[2024-07-08] MEDS: MoRPHine SULFATE 4 MG/ML 1 ML CARP\\VIAL IV STA (18:42)
[2024-07-08] MEDS: ONDANSETRON INJ 2 MG/ML 2 ML VIAL IV STA (18:42)
[2024-07-08] MEDS: SODIUM CHLORIDE 0.9% 500 ML IV ONE (18:42)
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
[2024-07-08] MEDS ORDERED: PHARMACIST DISCHARGE MED REC CONSULT PRN (18:45)
[2024-07-08] MEDS: ACETAMINOPHEN 325 MG TAB PEG STA (19:33)
[2024-07-08] MEDS: ACETAMINOPHEN 1,000 MG/100 ML VIAL IV STA (19:36)
[2024-07-08] MEDS ORDERED: GLUCAGON FOR INJ 1 MG VIAL SQ PRN (19:37)
[2024-07-08] MEDS ORDERED: CARBOHYDRATES FOR HYPOGLYCEMIA PO PRN (19:37)
[2024-07-08] MEDS ORDERED: GLUCOSE 40% GEL 15 GM TUBE PO PRN (19:37)
[2024-07-08] MEDS ORDERED: DEXTROSE 50% 50 ML SYRINGE IV PRN (19:37)
[2024-07-08] MEDS ORDERED: GLUCOSE 10 TAB/TUBE PO PRN (19:37)
[2024-07-08] MEDS: LACTATED RINGER'S 1,000 ML IV SCH (19:57)
[2024-07-08] MEDS ORDERED: levETIRAcetam IV 500 MG in SODIUM CHLOR 0.9% MINI-B 100 ML IV SCH (21:00)
[2024-07-08] MEDS: GADOBUTROL 65ML VIAL IV ONE (21:19)
[2024-07-08] MEDS: MoRPHine SULFATE 2 MG/ML CARP IV PRN (21:58)
[2024-07-08] MEDS: INSULIN ASPART PER UNIT CHARGE SC SCH (22:20)
[2024-07-08] MEDS: FLUCONAZOLE 200 MG/100 ML BAG IV SCH (22:43)
[2024-07-08] MEDS: TOPIRAMATE 100 MG TAB PEG STA (22:44)
[2024-07-08] MEDS: NYSTATIN SUSP 500,000 U/5 ML UDC PEG SCH (22:45)
[2024-07-08] MEDS: oxyCODONE HCL IR 5 MG TAB (IMMEDIATE RELEASE) PO PRN (22:47)
--- NOTE | 2024-07-08 23:40 | Magnetic Resonance Report ---
Exam(s): MRI HEAD W/WO Contrast IV Amt: 7.5cc gadavist EXAM: MR Head Without and With Intravenous Contrast CLINICAL HISTORY: Reason for exam: left lower extremity weakness, metastat SCC tongue. TECHNIQUE: Magnetic resonance images of the head/brain without and with intravenous contrast in multiple planes. CONTRAST: Patient received 7.5cc gadavist of IV contrast COMPARISON: Prior brain MRI from June 01, [address] from July 08, 2024. FINDINGS: Brain: Tiny remote ischemic injury of the medial left occipital lobe with encephalomalacia and gliosis. Mild nonspecific white matter changes. No mass. No hemorrhage. No acute infarct. The flow voids at the base of the brain are intact. No evidence of abnormal enhancement. The dural venous sinuses are patent. Ventricles: Mild ventriculomegaly. Bones/joints: Unremarkable. No acute fracture. Sinuses: Chronic ethmoid sinusitis. No acute sinusitis. Mastoid air cells: Unremarkable as visualized. No mastoid effusion. Orbits: Unremarkable as visualized. IMPRESSION: No evidence of acute intracranial pathology. Electronically signed by: Jaclyn Lawton MD 07/08/24 23:39 PM
[2024-07-09 06:30] LABS: Chol HDL Ratio 5.6 (0-5)
--- NOTE | 2024-07-09 07:16 | Hospitalist Progress Note ---
Date of Service July 09, 2024 Assessment & Plan (1) Esophageal thrush: (2) Stroke-like symptoms: (3) Malnutrition: (4) Malignant neoplasm of base of tongue: (5) Diabetes mellitus: (6) Seizure disorder: Plan 1) Stroke-like symptoms CT-head without con and CTA of the head head/neck were read as negative for acute findings. Patient evaluated by [place] [facility] who did not recommend TNKase administration (d/t last known well during AM) MRI-Brain (w/wo contrast): no acute intracranial pathology Every 4 hours neuro-checks, permissive hypertension until MRI of the brain is obtained Keep NPO until evaluated by speech tomorrow due to increased secretions on exam and dysphagia PT/OT consults; Bilateral SCDs for DVT prophylaxis AM CBC WNL, CMP WNL, Mg normal, PT/INR normal, Fe panel normal - AM CBC, BMP 2) Esophageal thrush Patient is experiencing significant esophageal pain Family confirms that he was recently treated for esophageal candidiasis On exam patient appears to have findings consistent with recurrent esophageal candidiasis Diflucan, IV, 200 mg, q24hrs for now and Nystatin, 5 mL, PEG, QID IV fluids until evaluated by speech therapy Pain control with morphine, 2 mg, IV, q4hr, PRN (Tylenol was discontinued) 3) Tachypnea #resolved Patient was initially going to be sent to the ED due to sudden onset of tachypnea while receiving IV fluids in the ED Denied shortness of breath or chest discomfort, no acute concerns on X-ray Hemodynamically stable without pleuritic chest pain, no oxygen requirements this morning It appears as at this time is due to his significant esophageal pain from thrush Will start pain regimen and IV fluconazole with continued monitoring on telemetry and pulse oximetry moving forward Held off on CT of the chest with PE protocol 4) Malnutrition Family is concerned patient continues to lose weight Uses PEG tube exclusively for enteral nutrition - albumin, TProt, electrolytes normal (could consider ordering a P) dietitian consulted for nutritional assessment, recommendations for PEG tube feedings will be followed 5) Malignant neoplasm of base of tongue Has completed 2 courses of Keytruda therapy per family [facility] Continue to follow-up with [facility] on discharge 6) Seizure disorder Continue topiramate, 100 mg, PEG, BID 7) Diabetes mellitus Hold metformin - A1C, 65. Monitor BSG ACHS, goal is [id number]; Start CF 50 and CR 15 ACHS for now; Adjust regimen as needed 8) RUQ abdominal pain - pt w/ RUQ abdominal pain, positive Jimenez's sign on exam - US-RUQ ordered and pending Code status: Full code Disposition: PCU-Tele FENGI: NPO until cleared by Speech-Pathology DVT Prophylaxis: SCD's Admission and Anticipated Discharge Date Admission Date: July 08, 2024 Supervising Physician Co-Signing Physician Notes Attending Physician Supervision Note: I independently interviewed and examined the patient and verified the escobar history and physical, reviewed labs and image studies and agree with findings and care plan noted above. 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 Left leg wkness - MRI neg. Known h/o baseline left leg wkness. -PT/OT Tachypnea - Sec to severe esophageal pain. Undergoing radiation tx for tongue Ca. -Resolved. Throat pain - Add magic swizzle. continue prn oxycodone Swallowing dysfunction/Malnutrition - d/t tongue ca. -Speech consulted for swallowing eval to manage secretions. 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 on 07/08/2024 [facility] due to concerns for acute tachypnea and left lower extremity weakness. Patient stable upon ED presentation but with ongoing weakness in the left lower extremity increased compared to his baseline left-sided weakness. Patient was [facility] to the [facility] this afternoon after he developed tachypnea while receiving IV fluids. While the patient was standing to be transferred to a wheelchair to be taken to the ED he reported significant weakness in the left lower extremity compared to his previous baseline and may have been experiencing left upper extremity weakness. Patient does have baseline left-sided weakness from a previous traumatic brain injury in 2005, confirms weakness in the left lower extremity days significantly worse than previous. History regarding onset of symptoms has fluctuated after discussion with the patient and multiple family members, however family reports that the patient reportedly noticed left lower extremity weakness after his nap on day of admission around 11 AM. This morning the patient notes some continued weakness in the LLE along with some RLE weakness. Patient's respiratory symptoms have improved, no longer is tachypneic, not requiring oxygen. Patient does note some stomach pain, mostly in the RUQ.states that he just began to feel that this morning. He is attributing this to not having had any PEG feedings. Review of Systems Constitutional: no fever and no chills Ear, Nose, Mouth, Throat: + dysphagia; no nasal congestion and no post nasal drip Respiratory: no cough, no chest congestion and no dyspnea Cardiovascular: no chest pain and no palpitations Gastrointestinal: + abdominal pain Genitourinary: no dysuria or no urinary frequency Neurologic: + localized weakness; no headache(s) Physical Exam Constitutional: WD/WN, vitals as above ENMT: Mouth: + tongue abnormality (base of tongue tender) and + dentures (patient w/out dentures, w/out teeth otherwise) Respiratory: normal respiratory effort, lungs clear to auscultation Cardiovascular: RRR, no murmur, no edema Gastrointestinal (Abdomen): Inspection/Auscultation: abdomen normal to inspection and normal bowel sounds; abdomen not distended Percussion/Palpation: + abdomen tender (RUQ tenderness; positive Jimenez's sign) and abdomen soft; no hepatosplenomegaly and no ascites Neurologic: Motor/Sensory: + abnormal movement (left sided and right-sided w eakness, see below) Cranial Nerves: PERRL, normal accommodation, EOM intact bilaterally, normal facial strength, tongue midline and able to elevate shoulders bilaterally LLE +3/5 dorsiflexion, plantar flexion; +4/5 hip flexion, knee flexion RLE +4/5 dorsiflexion, plantar flexion RUE, LUE +5/5 for all movements Psychiatric: A+Ox3, euthymic affect Results & Data Results & Data Vital Signs (Past 12 Hours) Vital Signs Temp Pulse Pulse Resp BP Pulse Ox O2 Del Method 07/09/24 02:50 37.0 C 62 18 120/75 97 Room Air 07/08/24 23:13 Room Air 08/21/24 22:00 66 07/08/24 21:44 36.6 C 69 24 161/82 H 99 Room Air 07/08/24 19:57 37.1 C 69 24 132/88 97 Room Air Resident Activity Tracking Resident Involvement: Resident Care Provided Care Provided: Adult Hospital Medicine
[2024-07-09] MEDS: TOPIRAMATE 100 MG TAB PEG SCH (08:15)
[2024-07-09] MEDS: LANSOPRAZOLE 30 MG SOLTAB PEG SCH (08:15)
[2024-07-09 08:16] LABS: Estimated Average Glucose 140 mg/dl; Hemoglobin A1C 6.5 % (4.5-5.6)
[2024-07-09] MEDS: FAMOTIDINE SUSP 40 MG/5 ML UDP NG SCH (08:16)
--- NOTE | 2024-07-09 08:18 | Electrocardiogram Report ---
Test Reason : Blood Pressure : */* mmHG Vent. Rate : 77 BPM Atrial Rate : 77 BPM P-R Int : 162 ms QRS Dur : 92 ms QT Int : 388 ms P-R-T Axes : 14 -23 99 degrees QTcB Int : 439 ms Normal sinus rhythm Nonspecific T wave abnormality Anterolateral leads Abnormal ECG When compared with ECG of 28-Jan-2024 09:48, No significant change was found Confirmed by Javier Mora ([id number]) on 07/09/2024 8:17:30 AM Referred By: Confirmed By: Javier Mora
[2024-07-09] MEDS: NUTREN LIQD 2.0 1,000 ML BAG PEG SCH (19:09)
[2024-07-09] MEDS: TUBE FEEDING WATER FLUSH PEG SCH ×2 (19:10→20:06)
[2024-07-09] MEDS: FIRST - Mouthwash BLM 119 ML PO SCH (20:06)
--- NOTE | 2024-07-09 20:46 | Ultrasound Report ---
Exam(s): US GALLBLADDER EXAM: US Abdomen Limited, Gallbladder CLINICAL HISTORY: Reason for exam: possible cholecystitis, RUQ pain. TECHNIQUE: Real-time ultrasound of the right upper quadrant with image documentation. COMPARISON: No relevant prior studies available. FINDINGS: Gallbladder: Unremarkable. No cholelithiasis. Common bile duct: Unremarkable as visualized. No stones. No dilation. Pancreas: Nonvisualization of the pancreas secondary to overlying bowel gas. Right kidney: Unremarkable. No stones. Right kidney measures 14.3 cm in length. No hydronephrosis. IMPRESSION: Nonvisualization of the pancreas : No sonographic evidence of acute cholecystitis Electronically signed by: Patrick Leon MD 07/09/24 20:46 PM
[2024-07-10] MEDS ORDERED: POLYETHYLENE (MIRALAX) 17 GM PACK PO PRN (08:06)
[2024-07-10] MEDS: DOCUSATE SODIUM 100 MG CAP PO SCH (08:24)
[2024-07-10] MEDS: ASPIRIN 81 MG CHEW PO SCH (10:52)
[2024-07-10] MEDS: POLYETHYLENE (MIRALAX) 17 GM PACK PO SCH (10:52)
[2024-07-10] MEDS: SENNA 8.6 MG TAB PO ONE (12:47)
[2024-07-10] MEDS: SOD PHOSPHATE/SOD BIPHOSPHATE ENEMA 132 ML BTL PR STA (13:33)
[2024-07-10 15:12] VITALS: BP 139/77; PULSE 81; RESP 16; TEMP 98.4; O2SAT 97
[2024-07-10] MEDS: ONDANSETRON 4 MG OD TAB PO STA (15:23)
--- NOTE | 2024-07-11 07:14 | Discharge Summary ---
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 Patient reportedly was receiving routine IV hydration at the [facility] when he had acute onset of tachypnea. While staff attempted to have the patient standing into a wheelchair to be taken to the ED he had difficulty putting weight on his left lower extremity which is reportedly new for him. On arrival to the ED he was made a stroke alert. Patient was noted to be tachypneic on arrival with respiratory rate in the 30s and tachycardic at 104 but otherwise stable. Labs including CBC, CMP, high-sensitivity troponin, and UA were unremarkable. UA was consistent with signs of dehydration. Chest x-ray was read as negative for acute findings. CT of the head without contrast, CTA of the head, and CTA of the neck were read as negative for acute findings. The patient was evaluated by [facility] who recommended admitting the patient for ongoing stroke evaluation with MRI but to hold off on antiplatelet therapy at this time MRI results are back. The patient was deemed not a TNKase candidate as his left lower extremity weakness was thought to possibly have started around 10 AM this morning. Prior to admission the patient was given 4 mg IV morphine, 4 mg IV Zofran, and 500 mL normal saline. Patient was sitting in bed in mild distress due to throat pain and time exam with his 2 [id number]'s bedside, history is obtained from all. Explained that the patient was at the [facility] receiving his routine IV fluids. There was reportedly concern that the patient was tachypneic. The patient was going to be taken down to the ED for evaluation for tachypnea when he noticed weakness in the left lower extremity greater than his baseline. There was also possible left upper extremity weakness noticed at that time. The y confirm that the patient had previous traumatic brain injury in 2005 and has baseline left-sided weakness from this injury. Patient does confirm that he feels significant weakness in the left lower extremity now compared to his previous baseline including decreased sensation. Denies current changes in vision, hearing, taste, and smell. His daughtersinlaw explained that the patient receives daily tube feeds via his PEG tube. They concerned that he is not getting enough nutrition. We discussed CODE STATUS, the patient clearly states that he wishes to be full code at this time. His [id number]'s explained that his daughter, Federico Garcia ([phone]), is his power of tax attorney. Principal Diagnosis Stroke ruled out. Dehydration Esophageal Thrush Throat pain Discharge Exam Constitutional WD/WN, vitals as above Respiratory normal respiratory effort, lungs clear to auscultation Cardiovascular RRR, no murmur, no edema Gastrointestinal (Abdomen) normal bowel sounds, soft, nontender, no hepatosplenomegaly PEG tube in place Discharge Data Allergies Allergy/AdvReac Type Severity Reaction Status Date / Time zolpidem AdvReac Intermediate Hallucinati Verified 07/08/24 17:28 ons pregabalin [From Lyrica] AdvReac Mild Anxiety Verified 07/08/24 17:28 Consultations 07/08/24 17:34 ED Decision to Admit Stat Ordered Studies 07/08/24 16:21 CT angio head w con Stat CT angio neck with con Stat CT head/brain wo con Stat 07/08/24 20:18 MRI Brain [MR brain wo/w con] Stat 07/09/24 12:31 US point of care ultrasound Stat 07/09/24 17:41 US gallbladder Stat Hospital Course (1) Esophageal thrush: (2) Stroke-like symptoms: (3) Malnutrition: (4) Malignant neoplasm of base of tongue: (5) Diabetes mellitus: (6) Seizure disorder: Plan 69 y/o with h/o of 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 Left leg wkness - MRI neg. CTA head and neck negative. Known h/o baseline left leg wkness. -Cannot rule out TIA - LDL at goal. added ASA. -PT/OT eval - stable to go home. -Noted concentrated urine - dehydration possibly contributed to the presentation. Tachypnea - Sec to severe esophageal pain. Undergoing radiation tx for tongue Ca. And overlying thrush contributing as well? -Resolved. No concern of infection. Esophageal thrush - treated with diflucan - rx sent to complete course at home. Throat pain - Continue magic swizzle. continue prn oxycodone Swallowing dysfunction/Malnutrition - d/t tongue ca. -Speech consulted for swallowing eval to manage secretions. Unable to do VFS until throat pain improves. -continue PEG feeds Constipation - Last BM - 10 days ago - After aggressive bowel regimen including enema - had a large BM. DM - A1c 6.5. Could consider d/cing metformin. RUQ pain - exam inconsistent - RUQ US - negative Tongue Ca - on Keytruda Discharged home to follow up with primary care provider. Total Time Total Time Spent Total Time Spent (In Minutes): 35 Discharge Plan Discharge Items Patient Disposition: Home - Self-Care Reason For Visit: STROKE-LIKE SYMTPOMS, TACHYPNEA, DEHYDRATION Discharge Diagnosis: Stroke ruled out. Symptoms probably related to dehydration. Can't rule out Stroke. Activity: Resume your previous activity Non-emergency contact: Primary Care Provider Call non-emergency contact if: you have any medication questions and your symptoms worsen Follow-up/Referrals: Sid Richards, [Primary Care Provider] - 07/16/24 2:00 pm (Primary Care Follow Up Visit scheduled for July 16, 2024 at 2:00pm) Diet: Other - See Diet Comment Diet Comment: On PEG tube feedings - continue Addtl Attending Provider Instructions: Please follow up with family physician in one week. You have been started on diflucan for Thrush which you will take via PEG tube. You will also start taking baby aspirin 81mgs daily. Since magic mouthwash has been so helpful with your, throat pain, please continue to use it as already prescribed. You will continue PEG tube feedings as per your outpatient provider recommendations. Pending Studies at Discharge: No Stand-Alone Forms: My orderTalk, Smoking Cessation Medications and DC Order Prescriptions: New aspirin [Children's Aspirin] 81 mg Tablet,Chewable 81 mg PO DAILY Qty: 30 0RF fluconazole [Diflucan] 100 mg tablet 100 mg PO DAILY 10 Days Qty: 10 0RF First - Mouthwash Blm [Magic Mouthwash] 5 ml PO QID 7 Days Qty: 140 0RF Continued pantoprazole 40 mg tablet,delayed release (DR/EC) 40 mg PO QAM 90 Days Qty: 90 3RF metformin 500 mg tablet 500 mg PO BID Qty: 180 3RF oxycodone 10 mg tablet 10 mg PO UD PRN (Reason: Pain) Rx Instructions: Every 4-6 hours as needed famotidine 40 mg tablet 40 mg PO QAM prochlorperazine maleate 10 mg tablet 10 mg PO Q6H PRN (Reason: Nausea And Vomiting) topiramate 100 mg tablet 100 mg feeding tube BID Discharge Orders: Discharge Order (Routine); Ordered 07/10/24 Ordered By: Yola Feliciano Admission Data Admit Date/Time: 07/08/24 18:44 Attending Provider: Yola Feliciano Admit Provider: Alexander Mehta Primary Care Provider: Sid Richards Other Providers: Alexander Mehta Other Interventions: Discharge Summary Assessment (RN) Last Done: 07/10/24 14:36 Supervising Physician Co-Signing Physician Notes 69 y/o with h/o of 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 Left leg wkness - MRI neg. CTA head and neck negative. Known h/o baseline left leg wkness. -Cannot rule out TIA - LDL at goal. added ASA. -PT/OT eval - stable to go home. -Noted concentrated urine - dehydration possibly contributed to the presentation. Tachypnea - Sec to severe esophageal pain. Undergoing radiation tx for tongue Ca. -Resolved. No concern of infection. Throat pain - Continue magic swizzle. continue prn oxycodone Swallowing dysfunction/Malnutrition - d/t tongue ca. -Speech consulted for swallowing eval to manage secretions. Unable to do VFS until throat pain improves. -continue PEG feeds Constipation - Last BM - 10 days ago - After aggressive bowel regimen including enema - had a large BM. Discharged home to follow up with primary care provider.
== END 2024-07-10 16:19 | disposition home or self-care (01) | DRG 92 ==
LOC: ED 15:45 → 4W 18:44 → INTOOBSV 18:44 → SUATTDRO 18:44 → 4W 20:20
DX: X58.XXXS Exposure to other specified factors, sequela; B37.81 Candidal esophagitis; R13.10 Dysphagia, unspecified; Z98.1 Arthrodesis status; E66.9 Obesity, unspecified; C78.00 Secondary malignant neoplasm of unspecified lung; R29.707 NIHSS score 7; R06.82 Tachypnea, not elsewhere classified; E11.9 Type 2 diabetes mellitus without complications; G40.909 Epilepsy, unspecified, not intractable, without status epilepticus; K59.00 Constipation, unspecified; Z88.8 Allergy status to other drugs, medicaments and biological substances; Z79.84 Long term (current) use of oral hypoglycemic drugs; C01 Malignant neoplasm of base of tongue; E46 Unspecified protein-calorie malnutrition; G47.33 Obstructive sleep apnea (adult) (pediatric); Z92.3 Personal history of irradiation; G51.0 Bell's palsy; G83.14 Monoplegia of lower limb affecting left nondominant side; I27.20 Pulmonary hypertension, unspecified; Z88.5 Allergy status to narcotic agent; R29.90 Unspecified symptoms and signs involving the nervous system; S06.9X9S Unspecified intracranial injury with loss of consciousness of unspecified duration, sequela; E86.0 Dehydration

== ENCOUNTER 2024-12-10 10:43 | Inpatient (IN) ==
[2024-12-10] MEDS: OPTIRAY 320 125ml IV ONE (11:13)
[2024-12-10 11:14] LABS: Basophils # (auto) 0.06 K/uL (0.00-0.20); Basophils % (auto) 0.7 %; Eosinophils # (auto) 0.29 K/uL (0.00-0.50); Eosinophils % (auto) 3.6 %; Hematocrit (blood only) 42.3 % (42.0-52.0); Hemoglobin 14.5 g/dl (14.0-18.0); Immature Granulocytes # (auto) 0.02 K/uL (0.01-0.20); Immature Granulocytes % (auto) 0.2 %; Lymphocytes # (auto) 2.62 K/uL (1.20-3.40); Lymphocytes % (auto) 32.6 %; Mean Corpuscular Hemoglobin 29.8 pg (25.0-34.0); Mean Corpuscular Hgb Conc 34.3 g/dL (32.0-36.0); Mean Platelet Volume 9.2 fL (9.4-12.4); Monocytes # (auto) 0.41 K/uL (0.11-0.59); Monocytes % (auto) 5.1 %; Neutrophils # (auto) 4.63 K/uL (1.40-6.50); Neutrophils % (auto) 57.8 %; Platelet Count 185 K/uL (130-400); RDW Coefficient of Variation 13.2 % (11.5-14.5); RDW Standard Deviation 41.3 fL (36.4-46.3); Red Blood Count 4.86 M/uL (4.70-6.10); White Blood Count 8.03 K/ul (4.8-10.8)
[2024-12-10 11:16] LABS: iSTAT Creatinine 1.2 mg/dl (0.6-1.3); iSTAT Hemoglobin 13.6 g/dl (14.0-18.0); iSTAT Ionized Calcium 1.19 mmol/l (1.12-1.32); iSTAT Potassium 4.4 mmol/L (3.3-5.0)
--- NOTE | 2024-12-10 11:27 | Emergency Department Note ---
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 angio neck with con CLINICAL HISTORY: 69 years-old Male with neuro deficit, acute stroke suspected. Acute stroke like symptoms COMPARISON STUDY: CTA head of same day, CT neck 07/08/2024 TECHNIQUE: Following the IV administration of 119 mL of Optiray, CT angiogram of the neck was performed from the aortic arch to the skull base. Images are reviewed in the axial, sagittal, and coronal planes. 3-D MIPS images are created and assessed. IV contrast was administered without complication. All measurements were calculated based on NASCET criteria. A dose lowering technique was utilized adhering to the principles of ALARA. CT DOSE: 1148.17 mGy.cm FINDINGS: Three-vessel morphology of the thoracic aortic arch. Atherosclerosis of the common carotid arteries and carotid bulbs without high-grade stenosis. Dominant right vertebral artery. Vertebral arteries are patent. Lung apices are clear. No pneumothorax. Unremarkable soft tissues. Degenerative changes of the spine. IMPRESSION: No aneurysm, dissection, high-grade stenosis or arterial occlusion. ACT 112: Negative or not required by law. The above report was generated using voice recognition software. It may contain grammatical, syntax or spelling errors. Electronically signed by: Robby Juarez M.D. 12/10/2024 11:43 AM Brain MRI 12/10/24 12:59 MR brain wo con HISTORY: 69 years-old Male stroke like sx acute weakness with stroke like symptoms. History of head and neck carcinoma COMPARISON: Head CT same day, PET CT 09/23/2024 TECHNIQUE: Multiplanar multisequence MRI of the brain was obtained without the use of IV contrast. FINDINGS: No restricted diffusion to suggest acute or subacute infarct. Midline structures appear unremarkable. Degenerative changes of the imaged cervical spine. No acute intracranial hemorrhage, midline shift, abnormal extra-axial collection, hydrocephalus or intra-axial mass. Involutional changes with mild to moderate T2/FLAIR hyperintense foci throughout the white matter. The cerebral venous sinuses and major arterial flow voids appear patent. Skull, orbits and soft tissues are unremarkable. Mastoid air cells and paranasal sinuses are clear. IMPRESSION: 1. No acute intracranial abnormality, specifically no infarct identified. 2. Involutional changes with suggestion of chronic microvascular ischemic disease. ACT 112: Negative or not required by law. The above report was generated using voice recognition software. It may contain grammatical, syntax or spelling errors. Electronically signed by: Robby Juarez M.D. 12/10/2024 2:45 PM Discharge Plan Visit Data Chief Complaint: TIA Symptoms Stated Complaint: L SIDE WEAKNESS, [facility] Provider: Salo Mobley Discharge Problem: Stroke-like symptoms, Left arm weakness, Left leg weakness Patient Disposition: Admitted As Inpatient Discharge Instructions Interventions: ED Discharge Assessment Last Done: 12/10/24 14:51
[2024-12-10 11:33] LABS: Partial Thromboplastin Ratio 1.1; Partial Thromboplastin Time 29 Seconds (21-31); Prothrombin Time 11.1 Seconds (9.0-12.0)
--- NOTE | 2024-12-10 11:37 | CT Scan Report ---
CT angio head w con CLINICAL HISTORY: neuro deficit, acute stroke suspected. COMPARISON STUDY: 07/08/2024 TECHNIQUE: Unenhanced axial CT scan of the brain is performed. Subsequently, following the IV adminis tration of 120 cc of Optiray, CT angiogram of the brain was performed from the skull base to the vert ex. Images are reviewed in the axial, sagittal, and coronal planes. 3-D MIPS images are created and a ssessed. IV contrast was administered without complication. All measurements were obtained according to NASCET criteria. A dose lowering technique was utilized adhering to the principles of ALARA. CT DOSE: 1148 FINDINGS: The right vertebral artery is dominant. No significant narrowing or occlusion seen at the i ntracranial vertebral or internal carotid arteries bilaterally. Anterior, middle, and posterior cereb ral arteries are patent bilaterally. No intracranial aneurysm seen. Cerebral venous sinuses opacify n ormally. IMPRESSION: No significant arterial narrowing or occlusion seen in the brain. ACT 112: Negative or not required by law. The above report was generated using voice recognition software. It may contain grammatical, syntax o r spelling errors. Electronically signed by: Yuan Koroma M.D. 12/10/2024 11:35 AM
--- NOTE | 2024-12-10 11:37 | XRay Report ---
XR chest 1V portable CLINICAL HISTORY: neuro deficit, acute stroke suspected TECHNIQUE: Single frontal radiograph of the chest was obtained. Comparison: Comparison is made to chest radiograph of 07/08/2024 FINDINGS: No lines and tubes are seen. Calcified aortic knob is seen. The lungs are clear. No evidence of pleur al effusion or pneumothorax. IMPRESSION: No acute abnormalities and in particular no radiographic evidence of pneumonia. ACT 112: Negative or not required by law. Electronically signed by: Yung Mata M.D. 12/10/2024 11:36 AM
--- NOTE | 2024-12-10 11:38 | CT Scan Report ---
CT head/brain wo con CLINICAL HISTORY: 69 years-old Male with neuro deficit, acute stroke suspected. Acute stroke like sy mptoms TECHNIQUE: Multiple axial CT images of the head were obtained without contrast. A dose lowering tech nique was utilized adhering to the principles of ALARA. COMPARISON: Brain MRI 07/08/2024 FINDINGS: No acute intracranial hemorrhage, midline shift, intracranial mass, hydrocephalus, territorial ischem ia or abnormal extra-axial collection. Involutional changes with chronic microvascular ischemic disea se redemonstrated. The calvarium is intact. The paranasal sinuses, mastoid air cells, and middle ear cavities are clear . IMPRESSION: No acute intracranial abnormality identified ACT 112: Negative or not required by law. The above report was generated using voice recognition software. It may contain grammatical, syntax o r spelling errors. Electronically signed by: Robby Juarez M.D. 12/10/2024 11:37 AM
[2024-12-10 11:44] LABS: Albumin Globulin Ratio 1.7 (0.9-2); Albumin Level 4.2 gm/dl (3.4-5.0); BUN Creatinine Ratio 13.4 (10-20); Bilirubin,Total 0.7 mg/dl (0.2-1.0); Creatinine Clr Calc Pharmacy 58.5 ml/min; Globulin 2.5 gm/dl (2.5-4.0); Magnesium 1.8 mg/dl (1.7-2.4); Potassium 4.4 mmol/L (3.5-5.1); Total Protein 6.7 gm/dl (6.0-8.3)
--- NOTE | 2024-12-10 11:45 | CT Scan Report ---
CT angio neck with con CLINICAL HISTORY: 69 years-old Male with neuro deficit, acute stroke suspected. Acute stroke like symptoms COMPARISON STUDY: CTA head of same day, CT neck 07/08/2024 TECHNIQUE: Following the IV administration of 119 mL of Optiray, CT angiogram of the neck was perform ed from the aortic arch to the skull base. Images are reviewed in the axial, sagittal, and coronal pl anes. 3-D MIPS images are created and assessed. IV contrast was administered without complication. Al l measurements were calculated based on NASCET criteria. A dose lowering technique was utilized adhe ring to the principles of ALARA. CT DOSE: 1148.17 mGy.cm FINDINGS: Three-vessel morphology of the thoracic aortic arch. Atherosclerosis of the common carotid arteries a nd carotid bulbs without high-grade stenosis. Dominant right vertebral artery. Vertebral arteries are patent. Lung apices are clear. No pneumothorax. Unremarkable soft tissues. Degenerative changes of the spine. IMPRESSION: No aneurysm, dissection, high-grade stenosis or arterial occlusion. ACT 112: Negative or not required by law. The above report was generated using voice recognition software. It may contain grammatical, syntax o r spelling errors. Electronically signed by: Robby Juarez M.D. 12/10/2024 11:43 AM
[2024-12-10 11:50] LABS: Troponin I High Sensitivity 3.1 pg/ml (0-20)
[2024-12-10] MEDS: STAT IV/IM STA (11:50)
[2024-12-10] MEDS: TENECTEPLASE 19 MG in SYRINGE 0 ML IV ONE (11:52)
[2024-12-10] MEDS ORDERED: No Aspirin within 24hrs of THROMBOLYTIC-Stroke PO SCH (12:00)
[2024-12-10] MEDS: SODIUM CHLORIDE 0.9% 10ML FLUSH IV STA (12:06)
[2024-12-10] MEDS: SODIUM CHLORIDE 0.9% 1,000 ML IV ONE (12:16)
[2024-12-10] MEDS: ACETAMINOPHEN 1,000 MG/100 ML VIAL IV STA (12:16)
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
[2024-12-10 13:12] LABS: Adenovirus PCR Not Detected (NotDetected); Bordetella parapertussis PCR Not Detected (NotDetected); Bordetella pertussis PCR Not Detected (NotDetected); Chlamydia pneumoniae PCR Not Detected (NotDetected); Coronavirus 229E PCR Not Detected (NotDetected); Coronavirus CoV-2 (COVID19)PCR Not Detected (NotDetected); Coronavirus HKU1 PCR Not Detected (NotDetected); Coronavirus NL63 PCR Not Detected (NotDetected); Coronavirus OC43PCR Not Detected (NotDetected); Human Metapneumovirus PCR Not Detected (NotDetected); Influenza A PCR Not Detected (NotDetected); Influenza B PCR Not Detected (NotDetected); Mycoplasma pneumoniae PCR Not Detected (NotDetected); Parainfluenza Virus 1 PCR Not Detected (NotDetected); Parainfluenza Virus 2 PCR Not Detected (NotDetected); Parainfluenza Virus 3 PCR Not Detected (NotDetected); Parainfluenza Virus 4 PCR Not Detected (NotDetected); Respiratory Syncytial VirusPCR Not Detected (NotDetected); Rhinovirus/Enterovirus PCR Not Detected (NotDetected)
--- NOTE | 2024-12-10 13:51 | Electrocardiogram Report ---
Test Reason : Blood Pressure : */* mmHG Vent. Rate : 66 BPM Atrial Rate : 66 BPM P-R Int : 172 ms QRS Dur : 92 ms QT Int : 396 ms P-R-T Axes : 17 -27 106 degrees QTcB Int : 415 ms Normal sinus rhythm When compared with ECG of 08-Jul-2024 16:17, No significant change was found Confirmed by Angel Guzman ([id number]) on 12/10/2024 1:50:52 PM Referred By: Mary John Confirmed By: Angel Guzman
--- NOTE | 2024-12-10 14:47 | Magnetic Resonance Report ---
MR brain wo con HISTORY: 69 years-old Male stroke like sx acute weakness with stroke like symptoms. History of head and neck carcinoma COMPARISON: Head CT same day, PET CT 09/23/2024 TECHNIQUE: Multiplanar multisequence MRI of the brain was obtained without the use of IV contrast. FINDINGS: No restricted diffusion to suggest acute or subacute infarct. Midline structures appear unremarkable. Degenerative changes of the imaged cervical spine. No acute intracranial hemorrhage, midline shift, abnormal extra-axial collection, hydrocephalus or intra-axial mass. Involutional changes with mild to moderate T2/FLAIR hyperintense foci throughout the white matter. The cerebral venous sinuses and major arterial flow voids appear patent. Skull, orbits and soft tissu es are unremarkable. Mastoid air cells and paranasal sinuses are clear. IMPRESSION: 1. No acute intracranial abnormality, specifically no infarct identified. 2. Involutional changes with suggestion of chronic microvascular ischemic disease. ACT 112: Negative or not required by law. The above report was generated using voice recognition software. It may contain grammatical, syntax o r spelling errors. Electronically signed by: Robby Juarez M.D. 12/10/2024 2:45 PM
[2024-12-10 14:52] LABS: Appearance Urine Clear (Clear); Bilirubin Urine Negative (Negative); Blood Urine Negative (Negative); Color Urine Yellow; Glucose Urine UA Negative (Negative); Ketones Urine Negative (Negative); Leukocyte Esterase Urine Negative (Negative); Nitrite Urine Negative (Negative); Protein Urine Negative (Negative); Specific Gravity Urine 1.033 (1.000-1.030); Urobilinogen Urine Negative (Negative); pH Urine 5.5 (4.5-7.5)
--- NOTE | 2024-12-10 15:07 | XCELERA ---
[id number]
[2024-12-10] MEDS ORDERED: PHARMACIST DISCHARGE MED REC CONSULT PRN ×2 (15:17→21:03)
[2024-12-10] MEDS ORDERED: No Aspirin within 24hrs of THROMBOLYTIC-Stroke SCH (15:45)
[2024-12-10] MEDS: ICU Protocol for HYPERglycemia SCH (16:39)
--- NOTE | 2024-12-10 17:05 | Billing Data ---
Date of Service December 10, 2024 Coding Level of Care Code 47756 CRITICAL CARE
--- OUTSIDE RECORDS SUMMARY | 2024-12-10 18:09 | External Medical Summary ---
Author Name Unknown Address Unknown Organization [id number]:LABORATORY [facility] [place] - [address] [place] [address] Laboratory Report Ordering Provider Test Date Status SARAH KRUSE 11/20/2024 10:25:40 Final Observation Date Value Abnormality Reference (Units ) Status Cortisol 11/20/2024 10:25:40 10.2 2.5-19.5 ( ug/dL) Final AM Reference Range: 4.8 - 19 .5 ug/dL
PM Reference Range: 2.5 - 11.9 ug/dL Performing Location LABORATORY [facility] - [address] [place] [address]
--- OUTSIDE RECORDS SUMMARY | 2024-12-10 18:09 | External Medical Summary ---
Author Name Unknown Address Unknown Organization [id number]:LABORATORY [facility] [place] [address] [place] [address] Laboratory Report Ordering Provider Test Date Status SARAH KRUSE 11/20/2024 10:25:40 Final Observation Date Value Abnormality Reference (Units ) Status ACTH 11/20/2024 10:25:40 36.1 7.2-63.3 ( pg/mL) Final Performing Location LABORATORY [facility] - [address] [place] [address]
--- OUTSIDE RECORDS SUMMARY | 2024-12-10 18:09 | External Medical Summary | Summary of Care ---
Author Name Unknown Organization [facility] Address [address] [facility] [place] [address] Phone [phone] Care Team Providers Care Rug Weaver Name Role Phone Hai Gifford MD Primary Care Provider [phone]- [phone] Reason for Visit * Reason Comments Outpatient Testing Encounter Details Date Type Department Care Team (Late st Contact Info) Description 11/20/2024 10:20 AM EST Laboratory Laboratory, [place] [facility] [address] [facility] [place] [address] [facility] [address] [facility] [place] [address] Neoplasm related pain (acute) (chronic); Other nonspecific abnormal finding of lung field; Bone marrow hyperplasia; Malignant neoplasm of tongue, tip and lateral border (HCC) Allergies Active Allergy Reactions Criticality Noted Date Comments Zolpidem Tartrate Neuro complications (Please comment) 12/12/2011 Called 911 after taking due to neuro sx (convulsing per ) Pregabalin 09/16/2019 documented as of this encounter (statuses as of 11/20/2024) Medications TYLENOL 325 MG PO TABS takes Tylenol PM at bedtime 0 12/01/19 10 Active METFORMIN HCL 500 MG PO TABSIndications :DM type 2, goal A1c below 7 TAKE 1 TABLET TWICE DAILY WITH MEALS 60 Tab 5 01/10/20 15 Active Vitamin B 12 250 MCG Oral Lozenge Take by mouth. Activ e Hydrocortisone Acetate 25 MG Rectal Suppository (Anusol-HC)Danica cations:Thrombo sed hemorrhoids Administer into the rectum 2 times a day in the morning and at bedtime as needed for Hemorrhoids. Up to 2 weeks. 24 Suppository 1 01/18/20 22 Active Additional Information Patient not taking.Reported on 04/02/2022 Topiramate 100 MG Oral Tablet (topAMAX)Indica tions:Migraine TAKE 1 TABLET BY MOUTH TWICE DAILY 180 Tablet 3 05/15/20 22 Active Docusate Sodium 100 MG Oral Capsule (Colace) Take by mouth 100 mg in the morning AND 100 mg before bedtime. Active Topiramate 50 MG Oral Tablet (Topamax)Indica tions:Other migraine without status migrainosus, not intractable Take 1 tab by mouth daily for migraine headache prevention 90 Tablet 3 09/13/20 22 Active traMADol HCl 50 MG Oral Tablet (Ultram)Indicat ions:Chronic low back pain without sciatica, unspecified back pain laterality Take 1 Tablet (50 mg) by mouth in the morning and 1 Tablet (50 mg) before bedtime. 60 Tablet 11/02/20 22 Active Pantoprazole Sodium 40 MG Oral Tablet Delayed Release (Protonix) TAKE ONE TABLET BY MOUTH IN THE MORNING 90 Tablet 1 01/20/20 23 Active documented as of this encounter (statuses as of 11/20/2024) Active Problems Problem Noted Date Diagnosed Date Chronic kidney disease, stage 3a 04/30/2022 Overview: Per CKD protocol Traumatic brain injury with loss of consciousnes s 03/02/2021 Left foot drop 03/02/2021 Osteoarthritis of hip 07/13/2014 Overview (02/28/2016): right ICD-10 update of inactive term Spinal stenosis, unspecified region other than c ervical 06/19/2013 Fusion of spine of lumbosacral region 03/20/2013 Conversion disorder 01/10/2010 Migraine 12/01/2009 Dyslipidemia, goal LDL below 100 Type 2 diabetes mellitus wit h hemoglobin A1c goal of less than 7.0% Overview (03/13/2016): ICD-10 update of inactive term Blepharospasm documented as of this encounter (statuses as of 11/20/2024) Resolved Problems Problem Noted Date Diagnosed Date Resolved Date Inflammation of sacroiliac joint 08/12/2014 03/02/2021 Fatigue 08/06/2014 09/26/2022 Obesity, Class I, BMI 30.0-3 4.9 (see actual BMI) 07/13/2014 09/26/2022 Overview (07/13/2014): bmi= 31.47 07/13/14 Injury of left foot 07/06/2014 09/26/20 22 Pain in limb 07/06/2014 09/26/2022 Left ankle injury 07/06/2014 09/26/2022 Pain of left calf 07/06/2014 09/26/2022 Open wound of ankle 07/06/2014 09/26/20 Need for shingles vaccine 12/14/2013 Screening for colon cancer 10/13/2013 1 11/26/2021 Special screening for malign ant neoplasm of prostate 10/13/2013 09/26/2022 Obesity, Class I, BMI 30.0-3 4.9 (see actual BMI) 09/04/2013 09/26/2022 Overview (09/04/2013): bmi= 32.10 09/04/13 Fusion of spine 06/19/2013 09/26/2022 Ingrown nail 07/01/2012 09/26/2022 Pain in foot 07/01/2012 09/26/2022 Screening for cardiovascular condition 10/31/2011 09/26/2022 Screen for colon cancer 10/31/2011 1107/2022 Spasm of muscle 10/31/2011 09/26/2022 Other psychological or physi rashawn stress, not elsewhere classified 01/10/2010 09/26/2022 Convulsions 01/09/2010 03/02/2021 Brain injury 10/29/2006 03/02/2021 Overview (10/31/2011): fall 10 feet, with TBI Ruptured disk 09/26/2022 Overview (10/31/2011): lumbar left L5- Nov 20 DM type 2, not at goal 12/14 Spasmodic torticollis 2021 documented as of this encounter (statuses as of 11/20/2024) Immunizations Name Administration Dates Next Due COVID-19 mRNA, LNP-s, No Pre serve, 2-Dose Series (Pfizer) 01/02/2022,02/22/2021,01/22/2021 Pneumococcal Conjugate Vacc, 13 Valent (Prevnar) 04/20/2019 Pneumococcal Polysaccharide PPV23 (Pneumovax) 04/02/2022,10/13/2013 Seasonal Influenza Vac., MDV , IM, 0.5 mL (Fluzone) 09/14/2014,09/08/2013,10/27/2012,09/18 Seasonal Influenza, PF, 6 M & above, IM , (FluLaval or Fluzone) 08/20/2019,11/26/2018,07/30/2016 Seasonal Influenza, Quadriva lent Hd (Fluzone Hd) 09/13/2022,10/02/2021 TD - Tetanus/Diptheria (ADULT) 07/13/2014 TDAP (age [...] Recorded Sex Assigned at Not on file Legal Sex Male 7:03 AM EST Gender Identity Not on file Sexual Orientation Not on file Occupation Industry Job Start Date Job End Date Not on file Not on file Not on file Not on file documented as of this encounter Plan of Treatment Pending Results Name Type Priority Associated Diagnoses Date /Time CORTISOL Lab Routine Neoplasm related pain (acute) (chronic) Other nonspecific abnormal finding of lung field 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, tip and lateral border (HCC) 11/20/2024 10:25 AM EST ADRENOCORTICOTROPIC HORMONE Lab Routine Neoplasm related pain (acute) (chronic) Other nonspecific abnormal finding of lung field 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, tip and lateral border (HCC) 11/20/2024 10:25 AM EST Scheduled Procedures Name Priority Associated Diagnoses Date/Ti me COLONOSCOPY FLEXIBLE PROXIMA L DIAGNOSTIC Recall Special screening for malignant neoplasms, colon Health Maintenance Due Date Last Done Comments Hepatitis C Screening 1971 Cologuard 1998 Fecal Occult Blood Test 1998 Sigmoidoscopy 1998 Zoster Vaccines (1 of 2) 2003 CKD PHOS USE SMARTSET 92508 01/10/2011 01/10/2010, 0 01/09/2010 Depression Screening 10/13/2014 10/13/2013 Adult Wellness Visit 2019 Diabetic Foot Exam 03/31/2022 03/31/2021, 0 08/06/2014, 10/13/2013, Additional history exists GFR 03/14/2023 09/13/2022, 03/18, 10/02/2021, Additional history exists HbA1c 03/14/2023 09/13/2022, 03/18, 10/02/2021, Additional history exists Albumin/Creatinine Ratio 04/02/20232 022, 03/02/2021, 09/04/2013 Diabetic Eye Exam 07/02/2023 07/02/2022, , 12/26/2021, Additional history exists CKD HGB USE SMARTSET 77816 09/13/202309/13, 09/03/2013, 01/14/2010, Additional history exists Colonoscopy 12/07/2023 12/07/2013, 12/07/2013 Colorectal Cancer Screening 12/07/2023 DTap/Tdap Vaccines (3 - Td or Tdap) 07/13/2024 07/13/2014, 07/13/2014 COVID-19 Vaccine ( season) 2024 01/02/2022, 02/22/2021, 01/22/2021 Influenza Vaccine (FLU shot) (#1) 2024 09/13/2022, 10/02/2021, 08/20/2019, Additional history exists Lipid Panel 04/02/2027 04/02/2022, 02/16, 07/13/2014, Additional history exists Pneumococcal Vaccine: 50+ Years Completed 04/02/2022, 04/20/2019, 10/13/2013 HPV (Gardasil) [...] Not on filedocumented as of this encounter Visit Diagnoses Diagnosis Neoplasm related pain (acute) (chronic) Other nonspecific abnormal finding of lung field Bone marrow hyperplasia Unspecified diseases of blood and blood-forming organs Malignant neoplasm of tongue, tip and lateral border (HCC) Malignant neoplasm of tip and lateral border of tongue documented in this encounter Advance Directives * Full Code [...] Power of Attor sona? No Care Teams Rug Weaver Relationship Specialty Start Date End Date Hai Gifford MD PCP - General Family Medicine 09/11/22 documented as of this encounter
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
[2024-12-10] MEDS: TOPIRAMATE 100 MG TAB PO SCH (20:27)
[2024-12-10] MEDS: traMADol HCL 50 MG TABLET PO PRN (20:27)
[2024-12-10] MEDS ORDERED: ACETAMINOPHEN 325 MG TAB PO PRN (21:03)
[2024-12-10 22:34] LABS: Appearance Urine Clear (Clear); Bilirubin Urine Negative (Negative); Blood Urine Negative (Negative); Color Urine Yellow; Glucose Urine UA Negative (Negative); Ketones Urine Negative (Negative); Leukocyte Esterase Urine Negative (Negative); Nitrite Urine Negative (Negative); Protein Urine Negative (Negative); Specific Gravity Urine 1.015 (1.000-1.030); Urobilinogen Urine Negative (Negative)
[2024-12-11 04:47] LABS: Basophils # (auto) 0.06 K/uL (0.00-0.20); Basophils % (auto) 0.8 %; Eosinophils # (auto) 0.38 K/uL (0.00-0.50); Hematocrit (blood only) 39.9 % (42.0-52.0); Hemoglobin 13.6 g/dl (14.0-18.0); Immature Granulocytes # (auto) 0.02 K/uL (0.01-0.20); Immature Granulocytes % (auto) 0.3 %; Mean Corpuscular Hemoglobin 29.3 pg (25.0-34.0); Mean Corpuscular Hgb Conc 34.1 g/dL (32.0-36.0); Mean Platelet Volume 9.4 fL (9.4-12.4); Monocytes # (auto) 0.38 K/uL (0.11-0.59); Neutrophils # (auto) 4.87 K/uL (1.40-6.50); Neutrophils % (auto) 63.9 %; Platelet Count 175 K/uL (130-400); RDW Coefficient of Variation 13.1 % (11.5-14.5); RDW Standard Deviation 40.5 fL (36.4-46.3); Red Blood Count 4.64 M/uL (4.70-6.10); White Blood Count 7.61 K/ul (4.8-10.8)
[2024-12-11 05:06] LABS: BUN Creatinine Ratio 12.5 (10-20); Calcium 9.1 mg/dl (8.6-10.3); Chol HDL Ratio 5.3 (0-5); Creatinine Clr Calc Pharmacy 54.6 ml/min; Magnesium 1.8 mg/dl (1.7-2.4); Potassium 3.9 mmol/L (3.5-5.1)
--- NOTE | 2024-12-11 07:08 | Critical Care Progress Note ---
Date of Service December 11, 2024 Assessment & Plan (1) Stroke-like symptoms: (2) Fever: (3) Seizure disorder: (4) History of traumatic brain injury: (5) Malignant neoplasm of base of tongue: (6) Diabetes mellitus: Plan Neurologic Post-TNK bundle ordered SBP < 180/105mmHg Q1H neurologic checks Repeat CTH 1200 12/11/2024 or sooner if neurologic change MRI negative for ischemia Continue home Topamax Multimodal pain management with APAP, home Tramadol if needed, hold oxycodone for now - Neurology has seen patient, refer to consultation note for recommendations Respiratory Cardiovascular BP goals above ASA to start at 24 hours Start statin, lipid panel pending Gastrointestinal/Nutrition Diet: Advance as tolerated pending dysphagia screen SUP: Home PPI Bowel regimen: Miralax Endocrine ISS for BG 140-180 per [facility] guidelines A1c pending Infectious Disease Patient having symptoms of UTI and possible passed kidney stone. Will obtain UA, and start empiric ceftriaxone if UA positive BCx2 pending, MRSA negative Renal/Electrolytes Encourage PO intake Replete electrolytes as indicated per ICU protocol Heme/Onc Currently undergoing immunotherapy via Keytruda DVT PPX: Enoxaparin to start 24 hours after TNK - routine post-thrombolytic stroke care MSK/Skin/Other No current concerns L/T/D PIV x2 Admission and Anticipated Discharge Date Admission Date: December 10, 2024 Supervising Physician Co-Signing Physician Notes Dr. Blake was resident physician during care of patient. I separately evaluated patient for escobar portions of the history and the exam. I was present during the critical portion of medical decision making, and I discussed the case with the resident. I generally agree with the findings and plan. Patient continuing to improve, routine post thrombolytic stroke care. MRI results reviewed, awaiting neurology consultation. Patient will be stable for downgrade at 24-hour post thrombolytic gopal Subjective Patient was seen and evaluated at bedside this AM, able to speak without deficiencies. Denies any pain or discomfort currently. Understands he is ready to move to regular medical-telemetry floor. Physical Exam Physical Exam: Constitutional A&Ox3, in no acute distress Neuro: no facial droop, fluent speech with good comprehension, sensation grossly intact HEENT: EOM intact, PERRL b/l MSK: 5/5 strength in all extremities CV: RRR, no m/r/g on auscultation Resp: clear to auscultation b/l Results & Data Results & Data Vital Signs (Past 12 Hours) Vital Signs Temp Pulse Pulse Resp BP BP BP 12/11/24 06:54 36.6 C 67 21 124/69 12/11/24 05:54 36.5 C 68 20 116/70 12/11/24 04:54 61 12 127/63 12/11/24 03:54 36.5 C 65 12 108/67 12/11/24 02:54 62 15 116/59 L 12/11/24 01:54 71 24 112/64 12/11/24 00:54 36.5 C 65 12 112/65 12/11/24 00:00 62 12/10/24 23:54 61 12 113/58 L 12/10/24 22:54 36.5 C 62 12 115/56 L 12/10/24 21:54 36.5 C 57 L 12 123/67 12/10/24 21:00 36.2 C L 60 15 138/71 12/10/24 19:36 65 17 12/10/24 19:30 125/73 12/10/24 19:18 64 20 12/10/24 19:15 58 L 13 Pulse Ox O2 Del Method 12/11/24 06:54 97 Room Air 12/11/24 05:54 97 Room Air 12/11/24 04:54 97 Room Air 12/11/24 03:54 97 Room Air 12/11/24 02:54 96 Room Air 12/11/24 01:54 Room Air 12/11/24 00:54 95 Room Air 12/11/24 00:00 12/10/24 23:54 96 Room Air 12/10/24 22:54 96 Room Air 12/10/24 21:54 96 Room Air 12/10/24 21:00 96 Room Air 12/10/24 19:36 99 12/10/24 19:30 12/10/24 19:18 98 Room Air 12/10/24 19:15 99 Room Air Resident Activity Tracking Resident Involvement: Resident Care Provided Care Provided: Adult Hospital Medicine
--- NOTE | 2024-12-11 07:44 | Billing Data ---
Date of Service December 11, 2024 Coding Level of Care Code 91868 SUB INP/OBS CARE MIN
[2024-12-11] MEDS ORDERED: FAMOTIDINE 40 MG TABLET PO SCH (09:00)
[2024-12-11] MEDS: ATORVASTATIN 40 MG TAB PO SCH (09:16)
[2024-12-11] MEDS: PANTOprazole 40 MG TAB PO SCH (09:16)
[2024-12-11] MEDS: POLYETHYLENE (MIRALAX) 17 GM PACK PO SCH (09:22)
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
[2024-12-11 10:33] LABS: Estimated Average Glucose 108 mg/dl; Hemoglobin A1C 5.4 % (4.5-5.6)
--- NOTE | 2024-12-11 12:14 | CT Scan Report ---
CT head/brain wo con CLINICAL HISTORY: Post TPA/TNK 24 hour Technique: Contiguous axial CT images of the head were acquired from the base of the skull to the marty ty without intravenous contrast administration. Images were viewed in brain, subdural and [facility]. Automated dose lowering techniques and/or adjustment according to patient size were utilized for this exam. Comparison: Comparison is made to CTA head 12/10/2024 and MRI brain 12/10/2024 Findings: Areas of decreased attenuation are present in the periventricular and subcortical white matter bilate rally consistent with small vessel ischemic disease. Generalized cerebral atrophy with commensurate e nlargement of the ventricles, sulci, and cisterns is also present. There is no acute intracranial hem orrhage or evidence of acute territorial infarction. No shift of the midline structures, mass effect, or extra-axial abnormalities are shown. Atherosclerotic calcifications are present in the intracran ial segments of the internal carotid arteries. Imaged portions of the paranasal sinuses and mastoid air cells are clear. The orbits appear normal. There are no acute fractures of the calvaria or scalp swelling. Impression: Stable age-related changes without evidence of intracranial hemorrhage. ACT 112: Negative or not required by law. Electronically signed by: Yung Mata M.D. 12/11/2024 12:13 PM
--- NOTE | 2024-12-11 13:20 | Hospitalist Progress Note ---
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 He presented from cancer center due to left-sided arm and leg numbness and weakness that began at 1040. he was given TNK in ED [place] 1157. CT head and CTAs unremarkable. Will admit to ICU s/p TNK and obtain brain MRI. Patient had similar episode in June 2024 in which he was diagnosed with TIA and started on baby aspirin; he was noncompliant with ASA and quit taking approximately 1 week after being prescribed. When reviewing previous brain MRIs, no intracranial pathology noted an MRI from May 2024. However, repeat MRI during admission in June 2024 did show tiny remote ischemic injury of medial left occipital lobe with encephalomalacia and gliosis. #stroke like sx history of TIA June 2024, reviewed MRI and appears patient did have medial left occipital infarct most recent echo January 2024 showed mild LVH, grade [address] head negative Head/Neck CTA negative, no narrowing or stenosis MRI head negative Repeat CT head in 24 hours did not show any bleeding Neurology involved. Recommends pursuing CVA workup 2D echo with bubble study shows interatrial shunt. Bilateral lower extremity duplex ultrasound ordered to rule out DVT Start aspirin 81 mg and Plavix 75 mg. Continue for 21 days Allow for permissive hypertension for another 24 hours Lipid panel and A1c negative PT/OT and speech therapy involved. Awaiting recommendations #seizure disorder/history of traumatic brain injury TBI in 2005 resulting in seizure disorder Follows with neurologist Dr. 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 He denies chest pain or shortness of breath. He says that his left-sided weakness, numbness have resolved. Review of Systems Review of Systems: All systems reviewed & are unremarkable except as noted in Subjective Physical Exam Physical Exam: General: Awake, conversant Heart: S1, S2/regular rate and rhythm, no murmur rubs or gallops Lungs: Clear to auscultation bilaterally. Normal effort Abdomen: Soft/nontender/nondistended. No hepatosplenomegaly Extremities: No clubbing/cyanosis. No edema Behavior: Appropriate, cooperative Results & Data Results & Data Vital Signs (Past 12 Hours) Vital Signs Temp Pulse Resp BP BP Pulse Ox O2 Del Method 12/11/24 13:00 74 19 99/61 L 97 Room Air 12/11/24 12:00 36.4 C L 69 22 101/66 95 Room Air 12/11/24 11:00 36.5 C 65 16 102/65 95 Room Air 12/11/24 10:00 36.7 C 66 18 109/65 96 Room Air 12/11/24 09:00 36.5 C 70 21 111/71 97 Room Air 12/11/24 08:00 36.6 C 68 20 103/62 95 Room Air 12/11/24 06:54 36.6 C 67 21 124/69 97 Room Air 12/11/24 05:54 36.5 C 68 20 116/70 97 Room Air 12/11/24 04:54 61 12 127/63 97 Room Air 12/11/24 03:54 36.5 C 65 12 108/67 97 Room Air 12/11/24 02:54 62 15 116/59 L 96 Room Air 12/11/24 01:54 71 24 112/64 Room Air Laboratory Results Abnormal lab results 12/10/24 12/10/24 12/11/24 Range/Units 14:37 20:10 03:58 RBC 4.64 L (4.70-6.10) M/uL Hgb 13.6 L (14.0-18.0) g/dl Hct 39.9 L (42.0-52.0) % Chloride 111 H (98-107) mmol/L Carbon Dioxide 20 L (21-32) mmol/L Glucose 108 H (70-99(Fasting)) mg/dl POC Glucose 109 H (70-99) mg/dl Cholesterol/HDL Ratio 5.3 H (0-5) Ur Specific Bryant 1.033 H (1.000-1.030) 12/11/24 12/11/24 Range/Units 07:22 11:17 RBC (4.70-6.10) M/uL Hgb (14.0-18.0) g/dl Hct (42.0-52.0) % Chloride (98-107) mmol/L Carbon Dioxide (21-32) mmol/L Glucose (70-99(Fasting)) mg/dl POC Glucose 119 H 150 H (70-99) mg/dl Cholesterol/HDL Ratio (0-5) Ur Specific Bryant (1.000-1.030) Diagnostic Findings Brain MRI 12/10/24 12:59 MR brain wo con HISTORY: 69 years-old Male stroke like sx acute weakness with stroke like symptoms. History of head and neck carcinoma COMPARISON: Head CT same day, PET CT 09/23/2024 TECHNIQUE: Multiplanar multisequence MRI of the brain was obtained without the use of IV contrast. FINDINGS: No restricted diffusion to suggest acute or subacute infarct. Midline structures appear unremarkable. Degenerative changes of the imaged cervical spine. No acute intracranial hemorrhage, midline shift, abnormal extra-axial collection, hydrocephalus or intra-axial mass. Involutional changes with mild to moderate T2/FLAIR hyperintense foci throughout the white matter. The cerebral venous sinuses and major arterial flow voids appear patent. Skull, orbits and soft tissues are unremarkable. Mastoid air cells and paranasal sinuses are clear. IMPRESSION: 1. No acute intracranial abnormality, specifically no infarct identified. 2. Involutional changes with suggestion of chronic microvascular ischemic disease. ACT 112: Negative or not required by law. The above report was generated using voice recognition software. It may contain grammatical, syntax or spelling errors. Electronically signed by: Robby Juarez M.D. 12/10/2024 2:[address] 12/11/24 12:00 CT head/brain wo con CLINICAL HISTORY: Post TPA/TNK 24 hour Technique: Contiguous axial CT images of the head were acquired from the base of the skull to the vertex without intravenous contrast administration. Images were viewed in brain, subdural and bone windows. Automated dose lowering techniques and/or adjustment according to patient size were utilized for this exam. Comparison: Comparison is made to CTA head 12/10/2024 and MRI brain 12/10/2024 Findings: Areas of decreased attenuation are present in the periventricular and subcor tical white matter bilaterally consistent with small vessel ischemic disease. Generalized cerebral atrophy with commensurate enlargement of the ventricles, sulci, and cisterns is also present. There is no acute intracranial hemorrhage or evidence of acute territorial infarction. No shift of the midline structures, mass effect, or extra-axial abnormalities are shown. Atherosclerotic calcifications are present in the intracranial segments of the internal carotid arteries. Imaged portions of the paranasal sinuses and mastoid air cells are clear. The orbits appear normal. There are no acute fractures of the calvaria or scalp swelling. Impression: Stable age-related changes without evidence of intracranial hemorrhage. ACT 112: Negative or not required by law. Electronically signed by: Yung Mata M.D. 12/11/2024 12:13 PM PG Care Time/CCT Total # of Minutes Spent Total Time Spent with Patient: Total time spent is greater than 50% in coordination of care (as documented) at patient's floor/unit and/or counseling patient: Coding Level of Care Code 39783 SUB INP/OBS CARE 2/35MIN Diagnoses Stroke-like symptoms R29.90 Seizure disorder G40.909 History of traumatic brain injury Z87.820 Malignant neoplasm of base of tongue C01 Diabetes mellitus E11.9
[2024-12-11] MEDS: ASPIRIN 81 MG ECTAB PO SCH (14:06)
[2024-12-11] MEDS: CLOPIDOGREL BISULFATE 75 MG TAB PO SCH (14:06)
--- NOTE | 2024-12-11 14:39 | Pharmacy Report ---
- Date of Service December 11, 2024 - Pharmacy CVA/TIA Medication Review Medications to Prevent Stroke handout has been added to the patients discharge packet. Antiplatelet(s) * aspirin 81mg PO daily, clopidogrel 75mg PO daily Cholesterol * High intensity statin: atorvastatin 40 mg daily DVT Prophylaxis * SCD knee Therapeutic Anticoagulation * No history of Afib/Aflutter noted Type 2 Diabetes * Patient has T2DM, but per hospitalist, a diabetes medication with proven CVD benefit will be deferred to their outpatient provider due to familiarity with risks/benefits of such therapies. "Medications to prevent stroke" handout has already been added to the patient's discharge packet, which instructs the patient to follow up with their outpatient provider to evaluate which diabetes medication with proven CVD benefit is best for them
--- NOTE | 2024-12-11 18:22 | Ultrasound Report ---
EXAM: US Duplex Bilateral Lower Extremities Veins INDICATION: TECHNIQUE: Real-time duplex ultrasound scan of the bilateral lower extremity veins integrating B-mode two-dimensional vascular structure, Doppler spectral analysis, color flow Doppler imaging and compression. COMPARISON: Right 04/13/2017 FINDINGS: Right deep veins: No DVT in the right common femoral, femoral or popliteal veins. The veins demonstrate normal color flow, are normally compressible, with normal phasic flow and/or augmentation response. Right superficial veins: No abnormality noted. No thrombus in the visualized right great saphenous vein. Left deep veins: No DVT in the left common femoral, femoral or popliteal veins. The veins demonstrate normal color flow, are normally compressible, with normal phasic flow and/or augmentation response. Left superficial veins: No abnormality noted. No thrombus in the visualized left great saphenous vein. Soft tissues: No abnormality noted. IMPRESSION: No deep venous thrombosis of either lower extremity. ACT 112: Negative or not required by law. Electronically signed by Natalie Johnston 12-11-2024 6:22 PM
[2024-12-12 03:18] VITALS: RESP 18
[2024-12-12 05:01] LABS: Basophils # (auto) 0.07 K/uL (0.00-0.20); Basophils % (auto) 1.1 %; Eosinophils # (auto) 0.32 K/uL (0.00-0.50); Eosinophils % (auto) 5.1 %; Hematocrit (blood only) 39.8 % (42.0-52.0); Hemoglobin 13.8 g/dl (14.0-18.0); Immature Granulocytes # (auto) 0.01 K/uL (0.01-0.20); Immature Granulocytes % (auto) 0.2 %; Lymphocytes # (auto) 2.39 K/uL (1.20-3.40); Lymphocytes % (auto) 37.9 %; Mean Corpuscular Hgb Conc 34.7 g/dL (32.0-36.0); Mean Corpuscular Volume 86.5 fL (80.0-100.0); Mean Platelet Volume 9.6 fL (9.4-12.4); Monocytes # (auto) 0.38 K/uL (0.11-0.59); Neutrophils # (auto) 3.13 K/uL (1.40-6.50); Neutrophils % (auto) 49.7 %; Platelet Count 182 K/uL (130-400); RDW Coefficient of Variation 12.9 % (11.5-14.5); RDW Standard Deviation 40.5 fL (36.4-46.3)
[2024-12-12 05:13] LABS: BUN Creatinine Ratio 22.2 (10-20); Calcium 9.2 mg/dl (8.6-10.3); Creatinine Clr Calc Pharmacy 66.2 ml/min; Magnesium 1.8 mg/dl (1.7-2.4); Potassium 4.1 mmol/L (3.5-5.1)
[2024-12-12 07:45] VITALS: PULSE 67; TEMP 97.9; O2SAT 96
[2024-12-12] MEDS ORDERED: STROKE PATIENT DISCHARGE STA (09:28)
--- NOTE | 2024-12-12 09:29 | Discharge Summary ---
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 He presented from [facility] due to left-sided arm and leg numbness and weakness that began at 1040. He was given TNK in ED at 1157. CT head and CTAs unremarkable. Will admit to ICU s/p TNK and obtain brain MRI. Patient seen at bedside with his [id number] and present. His was present at [facility] when symptoms began. He is finishing up his treatment with Keytruda once stated he just did not look well. Patient then developed left-sided arm numbness and weakness along with left leg numbness and weakness. He also endorses numbness of his left face. He denies any facial droop. After receiving TNK in the ED he feels as though his symptoms improved. He denies other strokelike symptoms, no dysarthria, no slurred speech, no dizziness, no vision changes. no concern for seizure at this time, no inc ontinence, no flailing or seizure like movements. Patient had a similar episode in June 2024 while receiving cancer therapy, but that episode he had dysarthria, left-sided facial droop, left-sided weakness. He was not given TNK during that admission. He was to start a daily baby aspirin but patient reported he only took this for approximately 1 week and has not taken since. Patient denies headache, dizziness, lightheadedness, vision changes, dyspnea, chest pain, abdominal pain, nausea, vomiting, diarrhea. He does not use nicotine products or drink alcohol. He did take his home medications this morning. He wishes to be full code at this time. Admission Exam Per Admitting Provider The patient is awake, alert and oriented 3, well developed and well nourished, normocephalic and atraumatic, in no acute distress. Non-toxic appearing. HEENT- EOMI, mucous membranes moist. Hearing grossly intact. Heart-normal S1 and S2. No murmurs, rubs or gallops. Lungs-clear bilaterally, no respiratory distress, no accessory muscle use. Abdomen-normal bowel sounds and soft. No ascites noted. Non-tender. Extremities- no clubbing, cyanosis, or edema. Musculoskeletal: Extremities: + limited ROM of extremities and + abnormal strength (5/5 RUE, 2/5 LUE, 5/5 RLE, 1/5 LLE) Neurologic: PERRL, EOMI, accommodation nl, no face palsy, no dysarthria CN's II-XI intact bilaterally; not confused Speech / Cognition: normal speech Motor/Sensory: + sensory deficit (decreased sensation left face, LUE, LLE ) Coordination: normal [id number] test Principal Diagnosis Strokelike symptoms, possible TIA Hemiplegia affecting left nondominant side Discharge Exam General: Awake, conversant Heart: S1, S2/regular rate and rhythm, no murmur rubs or gallops Lungs: Clear to auscultation bilaterally. Normal effort Abdomen: Soft/nontender/nondistended. No hepatosplenomegaly Extremities: No clubbing/cyanosis. No edema Behavior: Appropriate, cooperative Discharge Data Allergies Allergy/AdvReac Type Severity Reaction Status Date / Time zolpidem AdvReac Intermediate Hallucinati Verified 12/10/24 14:10 ons pregabalin [From Lyrica] AdvReac Mild Anxiety Verified 12/10/24 14:10 Consultations 12/10/24 12:10 ED Decision to Admit Stat 12/10/24 15:17 Consult Felt [place] Routine Consult Neurology Routine Ordered Studies 12/10/24 10:58 CT angio head w con Stat CT angio neck with con Stat CT head/brain wo con Stat 12/10/24 12:59 MRI Brain [MR brain wo con] Urgent 12/11/24 12:00 CT head/brain wo con Routine 12/11/24 13:11 US venous doppler LE Routine Hospital Course (1) Stroke-like symptoms: (2) Seizure disorder: (3) History of traumatic brain injury: (4) Malignant neoplasm of base of tongue: (5) Diabetes mellitus: Plan Patient is a 69-year-old male with past medical history of squamous currently undergoing immunotherapy treatments, TBI 2005 resulting in seizure disorder, diabetes, GERD. He presented from cancer center due to left-sided arm and leg numbness and weakness that began at 1040. he was given TNK in ED at 1157. CT head and CTAs unremarkable. Will admit to ICU s/p TNK and obtain brain MRI. Patient had similar episode in June 2024 in which he was diagnosed with TIA and started on baby aspirin; he was noncompliant with ASA and quit taking approximately 1 week after being prescribed. When reviewing previous brain MRIs, no intracranial pathology noted an MRI from May 2024. However, repeat MRI during admission in June 2024 did show tiny remote ischemic injury of medial left occipital lobe with encephalomalacia and gliosis. #stroke like sx Most likely TIA Patient had transient left-sided nondominant paresis history of TIA June 2024, reviewed MRI and appears patient did have medial left occipital infarct most recent echo January 2024 showed mild LVH, grade [address] head negative Head/Neck CTA negative, no narrowing or stenosis MRI head negative Repeat CT head in 24 hours did not show any bleeding Neurology involved. Recommends pursuing CVA workup 2D echo with bubble study shows interatrial shunt. Bilateral lower extremity duplex ultrasound ruled out DVT. Start aspirin 81 mg and Plavix 75 mg. Continue both for 21 days then stop Plavix. Continue aspirin indefinitely. Lipid panel and A1c negative Started statin. #seizure disorder/history of traumatic brain injury TBI in 2005 resulting in seizure disorder Follows with neurologist Dr. 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 Was receiving treatment when symptoms began Previous CVA/TIA in June 2024 occurred when patient was receiving treatment as well #T2DM Avoid hypoglycemia with symptoms above Resume metformin PCP to consider hypoglycemic agent with cardiovascular benefits Chronic stable diagnoses: GERD - continue PPI and famotidine Discharge to home today Total Time Total Time Spent Total Time Spent (In Minutes): 35 Discharge Plan Discharge Items Patient Disposition: Home - Self-Care Reason For Visit: STROKE LIKE SX, S/P TNK Discharge Diagnosis: Strokelike symptoms, possible TIA Hemiplegia affecting left nondominant side Activity: Resume your previous activity Non-emergency contact: Primary Care Provider Call non-emergency contact if: you have any medication questions and your symptoms worsen Follow-up/Referrals: Hai Gifford MD [Outside Practitioners] - Mary John MD [Physician] - Diet: Regular Addtl Attending Provider Instructions: Advised to follow-up with PCP in 1 week. Your PCP may decide to change your diabetes medication to something with a cardiovascular benefit. Advised to note that you are being started on dual antiplatelet agents, aspirin and Plavix, that she will take for 3 weeks. After that, you can discontinue the Plavix. But you will need to continue aspirin Pending Studies at Discharge: No Stand-Alone Forms: My [facility], Medications to Prevent Stroke Medications and DC Order Prescriptions: New clopidogrel 75 mg Tablet 75 mg PO QAM 21 Days Qty: 21 0RF atorvastatin 40 mg Tablet 40 mg PO QAM 30 Days Qty: 30 0RF aspirin 81 mg Tablet,Delayed Release (Dr/Ec) 81 mg PO QAM 30 Days Qty: 30 0RF Continued tramadol 50 mg tablet 50 mg PO TID PRN (Reason: Pain) oxycodone 5 mg tablet 5 mg PO Q6H PRN (Reason: cancer related pain) 30 Days Qty: 120 0RF pantoprazole 40 mg tablet,delayed release (DR/EC) 40 mg PO QAM 90 Days Qty: 90 3RF metformin 500 mg tablet 500 mg PO BID Qty: 180 3RF topiramate 100 mg tablet 100 mg PO BID Qty: 60 7RF famotidine 40 mg tablet 40 mg PO QAM prednisone 5 mg Tablet 0 mg PO DAILY Rx Instructions: Last filled 11/03/24 x 25 day supply. Original Directions: 5mg po daily Discharge Orders: Discharge Order (Routine); Ordered 12/12/24 Ordered By: Tuan Abbasi Admission Data Admit Date/Time: 12/10/24 13:23 Attending Provider: Tuan Abbasi Admit Provider: Alexander Mehta Primary Care Provider: PCP,NO Other Providers: Alexander Mehta; Tyrone De La Rosa; Eusebio Rojas Other Interventions: Discharge Summary Assessment (RN) Last Done: 12/12/24 11:18
[2024-12-12 11:20] VITALS: BP 111/63
--- NOTE | 2024-12-15 10:08 | Pharmacy Report ---
Pharmacist Stroke Counseling - Date of Service December 15, 2024 - Scope: Pharmacy has been consulted to provide medication discharge counseling for this patient admitted with ischemic stroke as per the Pharmacist Discharge Counseling for Stroke Patients Protocol. - Medications on Discharge: Home Medications Medication Instructions Recorded Confirmed famotidine 40 mg tablet 40 mg PO QAM 05/28/24 12/10/24 tramadol 50 mg tablet 50 mg PO TID PRN Pain 11/04/24 12/10/24 prednisone 5 mg tablet 0 mg PO DAILY 12/10/24 12/10/24 New Rx's Medication Instructions Recorded topiramate 100 mg tablet 100 mg PO BID #60 tabs 09/09/24 oxycodone 5 mg tablet 5 mg PO Q6H PRN cancer related 09/17/24 pain 1 month #120 tabs pantoprazole 40 mg tablet,delayed 40 mg PO QAM 90 days #90 tabs 09/18/24 release metformin 500 mg tablet 500 mg PO BID #180 tabs 09/23/24 aspirin 81 mg tablet,delayed 81 mg PO QAM 1 month #30 tabs 12/12/24 release atorvastatin 40 mg tablet 40 mg PO QAM 1 month #30 tabs 12/12/24 clopidogrel 75 mg tablet 75 mg PO QAM 3 weeks #21 tabs 12/12/24 - Action: The above medications, specifically ones for stroke treatment/prophylaxis, have been reviewed in detail with the patient and/or patient event sales representative(s) prior to discharge. This includes indication, common adverse reactions, drug interactions, and medication administration. Medication counseling has been employed using the teach-back method to ensure understanding. - Outcome: The patient and/or patient event sales representative(s) have demonstrated understanding of the medications. Thank you for allowing pharmacy to be involved in the care of this patient. Please call [phone] with any additional questions
== END 2024-12-12 11:48 | disposition home or self-care (01) | DRG 62 ==
LOC: ED 10:43 → 1E 13:23 → SUATTDRO 13:23 → 1E 14:51 → 2W 12-11 14:20

== ENCOUNTER 2025-08-05 18:22 | Inpatient (IN) ==
[2025-08-05 19:02] LABS: Hematocrit (blood only) 47.1 % (42.0-52.0); Hemoglobin 15.9 g/dl (14.0-18.0); Immature Granulocytes # (auto) 0.01 K/uL (0.01-0.20); Immature Granulocytes % (auto) 0.1 %; Mean Corpuscular Hemoglobin 29.3 pg (25.0-34.0); Mean Corpuscular Volume 86.7 fL (80.0-100.0); Platelet Count 157 K/uL (130-400); RDW Standard Deviation 43.3 fL (36.4-46.3); Red Blood Count 5.43 M/uL (4.70-6.10); White Blood Count 7.24 K/ul (4.8-10.8)
[2025-08-05 19:21] LABS: Alanine Aminotransferase 6.0 U/L (7-52); Alkaline Phosphatase 103.0 U/L (34-104); Anion Gap 8.0 (3-11); Bilirubin,Total 0.7 mg/dl (0.2-1.0); Blood Urea Nitrogen 16.0 mg/dl (6-23); Calcium 9.8 mg/dl (8.6-10.3); Carbon Dioxide 23.0 mmol/L (21-32); Chloride 109.0 mmol/L (98-107); Creatinine Clr Calc Pharmacy 51.3 ml/min; Glucose 108.0 mg/dl (70-99(Fasting)); Lipase 29.0 U/L (11-82); Potassium 3.8 mmol/L (3.5-5.1); Sodium 140.0 mmol/L (136-145); Total Protein 7.4 gm/dl (6.0-8.3)
--- NOTE | 2025-08-05 20:19 | Communication Note ---
Date of Service: August 05, 2025
[2025-08-05] MEDS: GADOBUTROL 65ML VIAL IV ONE (21:16)
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
--- NOTE | 2025-08-05 23:37 | Magnetic Resonance Report ---
Exam(s): MRI HEAD W/WO Contrast IV Amt: 6.8ml gadavist EXAM: MR Head Without and With Intravenous Contrast CLINICAL HISTORY: Reason for exam: frontal stroke found on PET scan. TECHNIQUE: Magnetic resonance images of the head/brain without and with intravenous contrast in multiple planes. CONTRAST: Patient received 6.8ml gadavist of IV contrast COMPARISON: Prior brain MRI from December 10, 2024. FINDINGS: Brain: There is a ring-enhancing lesion in the subcortical white matter of the left frontal lobe measuring 16.2 x 14.9 x 14.9 mm with moderate surrounding vasogenic edema. There is a second tiny nodular enhancing lesion in the subcortical white matter measuring 3.5 x 2.5 x 2.4 mm. Mild to moderate nonspecific white matter changes. No hemorrhage. No acute infarct. The flow voids at the base the brain are intact. The dural venous sinuses are patent. Ventricles: Mild ventriculomegaly. Bones/joints: Unremarkable. No acute fracture. Sinuses: Chronic ethmoid sinusitis. No acute sinusitis. Mastoid air cells: Unremarkable as visualized. No mastoid effusion. Orbits: Unremarkable as visualized. IMPRESSION: Findings concerning for 2 metastatic lesions in the left frontal lobe, the largest measuring 16.2 x 14.9 x 14.9 mm with moderate surrounding vasogenic edema. Communications: Verify Receipt Electronically signed by: Jaclyn Lawton MD 08/05/25 23:36 PM
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
[2025-08-06 00:11] LABS: Magnesium 2.1 mg/dl (1.7-2.4)
[2025-08-06] MEDS ORDERED: ACETAMINOPHEN 325 MG TAB PO PRN (00:14)
[2025-08-06] MEDS ORDERED: PROMETHAZINE 6.25 MG/50.25 ML BAG IV PRN (00:14)
[2025-08-06] MEDS ORDERED: CARBOHYDRATES FOR HYPOGLYCEMIA PO PRN (01:15)
[2025-08-06] MEDS ORDERED: GLUCOSE 10 TAB/TUBE PO PRN (01:15)
[2025-08-06] MEDS ORDERED: GLUCOSE 40% GEL 15 GM TUBE PO PRN (01:15)
[2025-08-06] MEDS ORDERED: DEXTROSE 50% 50 ML SYRINGE IV PRN (01:15)
[2025-08-06] MEDS ORDERED: GLUCAGON FOR INJ 1 MG VIAL SQ PRN (01:15)
[2025-08-06] MEDS: TOPIRAMATE 100 MG TAB PO SCH (01:26)
[2025-08-06] MEDS: LACTATED RINGER'S 1,000 ML IV STA (01:26)
[2025-08-06] MEDS: INSULIN ASPART PER UNIT CHARGE SC SCH (01:27)
[2025-08-06] MEDS: MELATONIN 3 MG TAB PO PRN (01:32)
[2025-08-06 01:45] VITALS: RESP 16
[2025-08-06 06:42] LABS: Hematocrit (blood only) 44.3 % (42.0-52.0); Hemoglobin 15.1 g/dl (14.0-18.0); Immature Granulocytes # (auto) 0.02 K/uL (0.01-0.20); Immature Granulocytes % (auto) 0.4 %; Mean Corpuscular Hemoglobin 29.2 pg (25.0-34.0); Mean Corpuscular Volume 85.5 fL (80.0-100.0); Platelet Count 173 K/uL (130-400); RDW Standard Deviation 42.5 fL (36.4-46.3); Red Blood Count 5.18 M/uL (4.70-6.10); White Blood Count 5.65 K/ul (4.8-10.8)
[2025-08-06 07:23] LABS: Anion Gap 7.0 (3-11); Blood Urea Nitrogen 15.0 mg/dl (6-23); Calcium 9.3 mg/dl (8.6-10.3); Carbon Dioxide 19.0 mmol/L (21-32); Chloride 112.0 mmol/L (98-107); Creatinine Clr Calc Pharmacy 62.6 ml/min; Glucose 150.0 mg/dl (70-99(Fasting)); Potassium 4.3 mmol/L (3.5-5.1); Sodium 138.0 mmol/L (136-145)
[2025-08-06 07:59] VITALS: BP 108/72; PULSE 78; TEMP 98.1; O2SAT 78
[2025-08-06] MEDS: ASPIRIN 81 MG ECTAB PO SCH (08:12)
[2025-08-06] MEDS: LANTUS PER UNIT CHARGE SQ SCH (08:57)
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
[2025-08-06] MEDS ORDERED: POLYETHYLENE (MIRALAX) 17 GM PACK PO PRN (10:53)
[2025-08-06] MEDS: DOCUSATE SODIUM 100 MG CAP PO SCH (11:25)
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
--- NOTE | 2025-08-06 12:59 | Hospitalist Progress Note ---
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 --Recent CT Chest:There is no evidence of pulmonary embolus in the main, lobar, or proximal segmental pulmonary arteries. There is no airspace consolidation typical for pneumonia or pleural effusion. Cardiomegaly noting advanced coronary artery atherosclerosis. Again seen are several pulmonary and pleural-based nodules. Several of these nodules have increased in size from 03/08/2025. These are pathologically indeterminate, and given the cancer history metastatic disease is not excluded. Continued attention at follow-up will be required. --PET 08/05/25: Slight increase in size of several pulmonary nodules from chest CT of March 08, 2025 and June 16, 2025, the most concerning of which is an 8 mm left lower lobe nodule which demonstrates mild FDG uptake. Continued short-term imaging follow-up is recommended. The remainder of the pulmonary nodules are unchanged since PET/CT of June 16, 2025 and can also be assessed on follow-up exams. 4.4 x 4 cm left frontal lobe hypodense focus. This probably represents an infarct however an underlying lesion cannot be excluded on unenhanced CT. Follow-up MRI the brain with and without contrast is recommended. No cervical lymphadenopathy. No suspicious findings within the neck. -- Discussed with radiation oncology and heme oncology () on 08/06/2025: Radiation oncology plans for radiation therapy as outpatient Heme oncology recommends patient be discharged on Decadron 4 mg twice a day and to be tapered down after radiation therapy as outpatient Plan to be discharged home today Advised to follow-up with radiation oncology and heme oncology as outpatient Constipation Started on bowel regimen Denies any nausea, vomiting, abdominal pain H/O CVA S/P TNK Posttraumatic brain injury Seizure disorder--on Topamax 100 mg twice a day Continue home medications as able DM 2 Last HbA1c 5.6 in May 2025 Utilize insulin while hospitalized Monitor blood glucose levels GERD Continue PPI DVT Px SCDs re: brain mets Code Status Full code Admission and Anticipated Discharge Date Admission Date: August 05, 2025 Subjective Patient is seen and examined at bedside Reports chronic leg pain which he attributes to neuropathy Also reports chronic right eye double vision which is unchanged Admits to have some constipation today Denies any chest pain, dyspnea, nausea, vomiting, abdominal pain, headache, dizziness Discussed in detail with patient's family at bedside and also over the phone Also discussed with oncology and radiation oncology today Review of Systems Review of Systems: All systems reviewed & are unremarkable except as noted in Subjective Physical Exam Physical Exam: Physical Exam: Vitals signs as noted above General Appearance:Moderately built and nourished, no apparent distress Head: normocephalic, Atraumatic Eyes: normal inspection, EOMI Neck: supple, Trachea midline Respiratory/Chest: Normal breath sounds, CTA, No accessory muscle use Cardiovascular: S1, S2, No murmur Abdomen/GI:Soft, Non tender, Bowel sounds present Extremities/Musculoskeletal:normal inspection, no edema Neurologic/Psych:AAOX3, grossly no focal neurological deficits Skin: normal color, warm Results & Data Results & Data Vital Signs (Past 12 Hours) Vital Signs Temp Pulse Pulse Resp BP Pulse Ox Pulse Ox 08/06/25 12:28 08/06/25 07:58 36.7 C 78 16 108/72 78 L 08/06/25 07:23 81 08/06/25 03:17 36.5 C 65 16 117/68 97 08/06/25 01:15 36.5 C 73 16 133/69 98 08/06/25 01:15 98 08/06/25 01:07 73 08/06/25 00:52 O2 Del Method O2 Del Method 08/06/25 12:28 Room Air 08/06/25 07:58 Room Air 08/06/25 07:23 08/06/25 03:17 Room Air 08/06/25 01:15 Room Air 08/06/25 01:15 Room Air 08/06/25 01:07 08/06/25 00:52 Room Air Laboratory Results Short CBC 08/05/25 08/06/25 Range/Units 18:46 06:15 WBC 7.24 5.65 (4.8-10.8) K/ul Hgb 15.9 15.1 (14.0-18.0) g/dl Hct 47.1 44.3 (42.0-52.0) % Plt Count 157 173 (130-400) K/uL BMP 09/18/25 09/19/25 18:46 06:15 Sodium 140 138 Potassium 3.8 4.3 Chloride 109 H 112 H Carbon Dioxide 23 19 L BUN 16 15 Creatinine 1.26 1.01 Glucose 108 H 150 H Calcium 9.8 9.3 Liver Function 08/05/25 Range/Units 18:46 Total Bilirubin 0.7 (0.2-1.0) mg/dl Direct Bilirubin 0.1 (0-0.2) mg/dl AST 15 (13-39) U/L ALT 6 L (7-52) U/L Alkaline Phosphatase 103 (34-104) U/L Albumin 4.4 (3.4-5.0) gm/dl
--- NOTE | 2025-08-06 13:07 | Discharge Summary ---
Date of Service August 06, 2025 Admission HPI Per Admitting Provider History obtained from patient, family, and records. 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 Last confinement November 2024 for strokelike symptoms presenting as hemiplegia affecting left dominant side status post TNK. Neurologic symptoms improved. Neurology recommended DAPT for 3 weeks followed by aspirin monotherapy and statin Rx. Patient sent by oncologist for outpatient PET/CT today. 1. Slight increase in size of several pulmonary nodules from chest CT of March 08, 2025 and June 16, 2025, the most concerning of which is an 8 mm left lower lobe nodule which demonstrates mild FDG uptake. Continued short-term imaging follow-up is recommended. The remainder of the pulmonary nodules are unchanged since PET/CT of June 16, 2025 and can also be assessed on follow-up exams. 2. 4.4 x 4 cm left frontal lobe hypodense focus. This probably represents an infarct however an underlying lesion cannot be excluded on unenhanced CT. Follow-up MRI the brain with and without contrast is recommended. 3. No cervical lymphadenopathy. No suspicious findings within the neck. Patient denies headache, dizziness, arm or leg weakness, chest pain, SOB sy mptoms. Patient directed to ER by oncologist for further evaluation. Medical History as above Surgical History : Back surgery, dental surgery, left nephrectomy from trauma, appendectomy, tongue tumor biopsy Family History : Breast cancer, DM, heart disease, stroke Personal/Social history : Non-smoker, occasional EtOH intake, retired from heavy machinery work Admission Exam Per Admitting Provider GENERAL: Comfortable, pleasant, no respiratory distress SKIN: Normal color, warm HEENT: Alopecia, bespectacled, pink palpebral conjunctivae, no ptosis, dry buccal mucosa NECK : Supple, no tenderness CHEST : CTA, no tenderness HEART : RRR, no obvious murmurs ABDOMEN: no distention, nontender EXTREMITIES : No LE swelling/tenderness, palpable pulses, no other conspicuous deformities noted NEUROLOGIC : Coherent, no facial asymmetry, no other gross focality Principal Diagnosis Brain metastasis with vasogenic edema Constipation Discharge Data Allergies Allergy/AdvReac Type Severity Reaction Status Date / Time pregabalin [From Lyrica] AdvReac Intermediate Anxiety Verified 08/05/25 19:34 zolpidem AdvReac Intermediate Hallucinati Verified 08/05/25 19:34 ons Consultations 08/05/25 19:44 ED Decision to Admit Stat 08/06/25 00:12 Consult Oncology Routine Consult Radiation Oncology Routine 08/06/25 11:22 Consult Palliative Care Routine Procedures Performed Laboratory Results WBC 5.65 K/ul (4.8-10.8) 08/06/25 06:15 RBC 5.18 M/uL (4.70-6.10) 08/06/25 06:15 Hgb 15.1 g/dl (14.0-18.0) 08/06/25 06:15 POC Hgb 16.0 g/dl (14.0-18.0) 08/05/25 18:54 Hct 44.3 % (42.0-52.0) 08/06/25 06:15 POC Hct 47 % (42-52) 08/05/25 18:54 MCV 85.5 fL (80.0-100.0) 08/06/25 06:15 MCH 29.2 pg (25.0-34.0) 08/06/25 06:15 MCHC 34.1 g/dL (32.0-36.0) 08/06/25 06:15 RDW Std Deviation 42.5 fL (36.4-46.3) 08/06/25 06:15 RDW Coeff of Emile 13.6 % (11.5-14.5) 08/06/25 06:15 Plt Count 173 K/uL (130-400) 08/06/25 06:15 MPV 9.5 fL (9.4-12.4) 08/06/25 06:15 Immature Gran % (Auto) 0.4 % 08/06/25 06:15 Neut % (Auto) 82.4 % 08/06/25 06:15 Lymph % (Auto) 15.4 % 08/06/25 06:15 Freestone % (Auto) 1.1 % 08/06/25 06:15 Eos % (Auto) 0.2 % 08/06/25 06:15 Baso % (Auto) 0.5 % 08/06/25 06:15 Neut # (Auto) 4.66 K/uL (1.40-6.50) 08/06/25 06:15 Lymph # (Auto) 0.87 K/uL (1.20-3.40) L 08/06/25 06:15 Freestone # (Auto) 0.06 K/uL (0.11-0.59) L 08/06/25 06:15 Eos # (Auto) 0.01 K/uL (0.00-0.50) 08/06/25 06:15 Baso # (Auto) 0.03 K/uL (0.00-0.20) 08/06/25 06:15 Immature Gran # (Auto) 0.02 K/uL (0.01-0.20) 08/06/25 06:15 POC Sodium 141 mmol/L (135-144) 08/05/25 18:54 Sodium 138 mmol/L (136-145) 08/06/25 06:15 POC Potassium 3.9 mmol/L (3.3-5.0) 08/05/25 18:54 Potassium 4.3 mmol/L (3.5-5.1) 08/06/25 06:15 POC Chloride 109 mmol/L (101-112) 08/05/25 18:54 Chloride 112 mmol/L (98-107) H 08/06/25 06:15 Carbon Dioxide 19 mmol/L (21-32) L 08/06/25 06:15 POC Total CO2 20 mmol/L (24-31) L 08/05/25 18:54 Anion Gap 7 (3-11) 08/06/25 06:15 POC Anion Gap 17.0 mmol/L (16-25) 08/05/25 18:54 POC BUN 17 mg/dl (7-18) 08/05/25 18:54 BUN 15 mg/dl (6-23) 08/06/25 06:15 Creatinine 1.01 mg/dl (0.6-1.4) 08/06/25 06:15 POC Creatinine 1.3 mg/dl (0.6-1.3) 08/05/25 18:54 Est Cr Clr Drug Dosing 62.6 ml/min 08/06/25 06:15 eGFR 79.02 08/06/25 06:15 BUN/Creatinine Ratio 14.9 (10-20) 08/06/25 06:15 Glucose 150 mg/dl (70-99(Fasting)) H 08/06/25 06:15 POC Glucose 113 mg/dl (70-99) H 08/06/25 12:18 POC Glucose (other) 111 mg/dl (70-99) H 08/05/25 18:54 Calcium 9.3 mg/dl (8.6-10.3) 08/06/25 06:15 POC Ioniz Calcium Epi 1.27 mmol/l (1.12-1.32) 08/05/25 18:54 Magnesium 2.1 mg/dl (1.7-2.4) 08/05/25 18:46 Total Bilirubin 0.7 mg/dl (0.2-1.0) 08/05/25 18:46 Direct Bilirubin 0.1 mg/dl (0-0.2) 08/05/25 18:46 AST 15 U/L (13-39) 08/05/25 18:46 ALT 6 U/L (7-52) L 08/05/25 18:46 Alkaline Phosphatase 103 U/L (34-104) 08/05/25 18:46 Total Protein 7.4 gm/dl (6.0-8.3) 08/05/25 18:46 Albumin 4.4 gm/dl (3.4-5.0) 08/05/25 18:46 Lipase 29 U/L (11-82) 08/05/25 18:46 Impressions Brain MRI 08/05/25 19:22 CR Exam(s): MRI HEAD W/WO Contrast IV Amt: 6.8ml gadavist EXAM: MR Head Without and With Intravenous Contrast CLINICAL HISTORY: Reason for exam: frontal stroke found on PET scan. TECHNIQUE: Magnetic resonance images of the head/brain without and with intravenous contrast in multiple planes. CONTRAST: Patient received 6.8ml gadavist of IV contrast COMPARISON: Prior brain MRI from December 10, 2024. FINDINGS: Brain: There is a ring-enhancing lesion in the subcortical white matter of the left frontal lobe measuring 16.2 x 14.9 x 14.9 mm with moderate surrounding vasogenic edema. There is a second tiny nodular enhancing lesion in the subcortical white matter measuring 3.5 x 2.5 x 2.4 mm. Mild to moderate nonspecific white matter changes. No hemorrhage. No acute infarct. The flow voids at the base the brain are intact. The dural venous sinuses are patent. Ventricles: Mild ventriculomegaly. Bones/joints: Unremarkable. No acute fracture. Sinuses: Chronic ethmoid sinusitis. No acute sinusitis. Mastoid air cells: Unremarkable as visualized. No mastoid effusion. Orbits: Unremarkable as visualized. IMPRESSION: Findings concerning for 2 metastatic lesions in the left frontal lobe, the largest measuring 16.2 x 14.9 x 14.9 mm with moderate surrounding vasogenic edema. 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 --Recent CT Chest:There is no evidence of pulmonary embolus in the main, lobar, or proximal segmental pulmonary arteries. There is no airspace consolidation typical for pneumonia or pleural effusion. Cardiomegaly noting advanced coronary artery atherosclerosis. Again seen are several pulmonary and pleural-based nodules. Several of these nodules have increased in size from 03/08/2025. These are pathologically indeterminate, and given the cancer history metastatic disease is not excluded. Continued attention at follow-up will be required. --PET 08/05/25: Slight increase in size of several pulmonary nodules from chest CT of March 08, 2025 and June 16, 2025, the most concerning of which is an 8 mm left lower lobe nodule which demonstrates mild FDG uptake. Continued short-term imaging follow-up is recommended. The remainder of the pulmonary nodules are unchanged since PET/CT of June 16, 2025 and can also be assessed on follow-up exams. 4.4 x 4 cm left frontal lobe hypodense focus. This probably represents an infarct however an underlying lesion cannot be excluded on unenhanced CT. Follow-up MRI the brain with and without contrast is recommended. No cervical lymphadenopathy. No suspicious findings within the neck. -- Discussed with radiation oncology and heme oncology () on 08/06/2025: Radiation oncology plans for radiation therapy as outpatient Heme oncology recommends patient be discharged on Decadron 4 mg twice a day and to be tapered down after radiation therapy as outpatient Plan to be discharged home today Advised to follow-up with radiation oncology and heme oncology as outpatient Constipation Started on bowel regimen Denies any nausea, vomiting, abdominal pain H/O CVA S/P TNK Posttraumatic brain injury Seizure disorder--on Topamax 100 mg twice a day Continue home medications as able DM 2 Last HbA1c 5.6 in May 2025 Utilize insulin while hospitalized Monitor blood glucose levels GERD Continue PPI DVT Px SCDs re: brain mets Code Status Full code Total Time Total Time Spent Total Time Spent (In Minutes): 52 minutes Discharge Plan Discharge Items Patient Disposition: Home - Self-Care Reason For Visit: INCREASED ICP Discharge Diagnosis: Brain metastasis with vasogenic edema Constipation Condition on Discharge: Fair Activity: Per Instructions section Exercise/Sports: Gradually increase as tolerated Non-emergency contact: Primary Care Provider, Specialist and Oncologist Call non-emergency contact if: you have any medication questions, your symptoms worsen, your pain is concerning for you and you have a fever Follow-up/Referrals: Madhav Roque MD [Primary Care Provider] - Diet: Carb Consistent or DM2 and Heart Healthy Addtl Attending Provider Instructions: -Follow-up with your primary care physician Dr. Roque in 1 week -Follow-up with your radiation oncologist for radiation therapy as scheduled on Saturday - Follow-up with your oncologist Dr. John in 1 week --Start taking Decadron 4 mg twice a day. After radiation therapy, discuss with your oncologist for further recommendations on dosing of Decadron. -- Hold taking tramadol as it can cause seizures. Seek immediate medical attention if your symptoms reoccur or worsen Please review medication list provided on discharge for any medication changes as instructed. Please call if you have any questions or problems. You can reach a [facility] hospitalist on duty at [facility] 24 hours a day by calling [phone] Pending Studies at Discharge: No Stand-Alone Forms: [facility], Smoking Cessation Medications and DC Order Prescriptions: New polyethylene glycol 3350 [Miralax] 17 gram Powder In Packet 17 g PO DAILY PRN (Reason: constipation) Qty: 30 0RF docusate sodium 100 mg Capsule 100 mg PO BID PRN (Reason: Constipation) Qty: 30 0RF dexamethasone 4 mg Tablet 4 mg PO BID Qty: 20 0RF Rx Instructions: Start taking 4 mg twice a day until radiation therapy. Further dosing to be determined by your oncologist. Continued pantoprazole 40 mg tablet,delayed release (DR/EC) 40 mg PO QAM 90 Days Qty: 90 3RF topiramate 100 mg tablet 100 mg PO BID Qty: 60 7RF aspirin 81 mg Tablet,Delayed Release (Dr/Ec) 81 mg PO DAILY oxycodone-acetaminophen 5-325 mg tablet 1 tab PO Q6H PRN (Reason: Pain) Jardiance 25 mg tablet 25 mg PO QAM Held tramadol 50 mg tablet 50 mg PO TID PRN (Reason: Pain) Hold Instructions: Hold this medication as it can contribute to seizures. Discuss with your physician for further recommendations as outpatient Discharge Orders: Discharge Order (Routine); Ordered 08/06/25 Ordered By: Bala Weaver Admission Data Admit Date/Time: 08/05/25 23:48 Attending Provider: Bala Weaver Admit Provider: Hernan Priest Primary Care Provider: Madhav Roque Other Providers: Hernan Priest; Julien John Angelica M.; Michael Greene; Ernie Mon; Alessia Rivas; Gwendolyn York
== END 2025-08-06 15:48 | disposition home or self-care (01) | DRG 54 ==
LOC: ED 18:22 → 2W 23:48